=== PATIENT | female | born 1940 | race Caucasian/White ===

== ENCOUNTER 2016-11-18 08:28 | Outpatient (CLI) | payer OTHER ==
[2016-11-18] MEDS ORDERED: FUROSEMIDE 20 MG/2 ML VIAL IVP ONE (09:15)
== END 2016-11-18 14:25 | disposition home or self-care (01) ==
LOC: FOBOP 08:28
PROVIDERS: ATTEND Internal Medicine Hematology & Oncology
PROC: 30233N1 Transfusion of Nonautologous Red Blood Cells into Peripheral Vein, Percutaneous Approach (ICD-10-PCS; principal; 2016-11-18)
DX: D53.9 Nutritional anemia, unspecified (principal)
CPT/HCPCS: 36430; J1940; P9040

== ENCOUNTER → 2016-12-02 | Day surgery (SDC) | payer OTHER | END | disposition home or self-care (01) | LOC: FOBOP 07:55 | PROVIDERS: ATTEND Internal Medicine Hematology & Oncology | PROC: 30233N1 Transfusion of Nonautologous Red Blood Cells into Peripheral Vein, Percutaneous Approach (ICD-10-PCS; principal; 2016-12-02) | DX: C93.10 Chronic myelomonocytic leukemia not having achieved remission (principal); Z87.891 Personal history of nicotine dependence; Z88.0 Allergy status to penicillin; Z88.2 Allergy status to sulfonamides | CPT/HCPCS: 36430; P9016; P9040 ==

== ENCOUNTER 2016-12-21 06:37 | Day surgery (SDC) | payer OTHER ==
--- NOTE | 2016-12-19 17:42 | GHP ---
[f rep st] PREOP HISTORY AND PHYSICAL PREOPERATIVE DIAGNOSIS: Chronic myelomonocytic leukemia. HISTORY OF PRESENT ILLNESS: The patient is a 76-year-old woman who was referred to our office for p ort placement. She was diagnosed with chronic myelomonocytic leukemia in October 2016. Her oncologist is Dr. Shai Navarro. She is scheduled to start chemotherapy on December 25, 2016. PAST MEDICAL HISTORY: CHF, back pain, shortness of breath, edema, gout, hyperlipidemia, hypertensio n, CMML. PAST SURGICAL HISTORY: Cholecystectomy, hysterectomy, oophorectomy. ALLERGIES: Penicillins, sulfa. FAMILY MEDICAL HISTORY: Hypertension. 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 She is a former tobacco user. She denies alcohol or recre ational drug use. Her daughter Sayda is very involved in her care. REVIEW OF SYSTEMS: A 10-point review of systems is negative, aside from HPI. PHYSICAL EXAMINATION: GENERAL: Pleasant, well-developed, well-nourished woman, in no acute distres s, accompanied by daughter Sayda. HEENT: Normocephalic, atraumatic. No hearing deficits. Pupils equal and round. No scleral icterus. Mucous membranes moist. NECK: Trachea midline. RESPIRATORY: No increased work of breathing. Clear to auscultation bilaterally. CARDIOVASCULAR: Regular rate and rhythm. MUSCULOSKELETAL: Normal gait. Normal nails. SKIN: Warm and dry. PSYCH: Mood and affect normal. NEURO: Grossly intact. IMPRESSION AND PLAN: A 76-year-old with chronic myelomonocytic leukemia. Will attempt port placed on the left side. This will likely be an IJ port. We discussed the benefit of port placement inclu ding easier access for chemotherapy. We discussed risks including, but not limited to, stroke, hear t attack, blood clots, or . We discussed risk of infection, bleeding, and pneumothorax. She u nderstands that if the port becomes infected it will need to be removed. She can proceed with chemo on the . She and her daughter had their questions answered to their satisfaction and would lik e to proceed. Additionally seen by Dr. Hawa García. /[id number]/MODL
[2016-12-21] MEDS ORDERED: LR 1,000 ML IV ONE (07:16)
[2016-12-21] MEDS ORDERED: BUPIVACAINE 0.5% 30 ML SDV ONE (07:45)
--- NOTE | 2016-12-21 07:51 | PDHPUP ---
History & Physical Update H&P update statement: This history and physical update is based on an assessment of the patient which was completed after admission or registration (within 24 hours), but prior to the surgery/procedure. H&P update: H&P reviewed & patient examined, no change in patient's condition since H&P completed
--- NOTE | 2016-12-21 07:57 | PDANEPAE ---
ANE History of Present Illness h/o CML for port placement ANE Past Medical History - Cardiovascular History Hx Hypertension: Yes Hx Arrhythmias: No Hx Chest Pain: No Hx Coronary Artery / Peripheral Vascular Disease: No Hx CHF / Valvular Disease: Yes Hx Palpitations: No Cardiovascular History Comment: Chronic non-ischemic systolic CHF w/ LVEF 28%. Anemia w/CML. chronic LBBB. on atorvastatin. - Pulmonary History Hx COPD: No Hx Asthma/Reactive Airway Disease: No Hx Recent Upper Respiratory Infection: No Hx Oxygen in Use at Home: No O2 in Use at Home (L/minute): NONE Hx Sleep Apnea: No Sleep Apnea Screening Result - Last Documented: Negative Pulmonary History Comment: pneumonia 09-26- hosp at [facility]. - Neurologic History Hx Cerebrovascular Accident: No Hx Seizures: No Hx Dementia: No Neurologic History Comment: Hosp at [facility] for "non-infectious" meningitis 09-26. - Endocrine History Hx Diabetes: No - Renal History Hx Renal Disorders: Yes Renal History Comment: Hx of UTI's - hx of renal insufficiency 2014 - Creat 1.2. - Liver History Hx Hepatic Disorders: No - Neurological & Psychiatric Hx Hx Neurological and Psychiatric Disorders: Yes Neurological / Psychiatric History Comment: Chronic back pain. peripheral neuropathy-fingers, ft. - Cancer History Hx Cancer: Yes Cancer History Comment: chronic myelomonocytic leukemia - Congenital Disorder History Hx Congenital Disorders: No - GI History Hx Gastrointestinal Disorders: No - Other Health History Other Health History: on gout Rx. - Chronic Pain History Chronic Pain: Yes (back) - Surgical History Prior Surgeries: cholecystectomy 2016. hysterectomy. oophorectomy ANE Review of Systems - Exercise capacity METS (RN): 3 METS ANE Patient History - Allergies Allergies/Adverse Reactions: Penicillins Allergy (Verified 12/20/16 16:41) Other-Enter Comments Sulfa (Sulfonamide Antibiotics) Allergy (Verified 12/20/16 16:41) Rash - Home Medications Home medications: home medication list seen and reviewed Home Medications: Aspirin 1 tab PO DAILY 08/11/15 [Last Taken 12/19/16 12:00] Carvedilol 25 mg PO BID 08/11/15 [Last Taken 12/20/16 20:00] Allopurinol [Allopurinol 100 MG (*)] 4 mg PO DAILY 12/02/16 [Last Taken 08:00] Amitriptyline HCl 50 mg PO DAILY 12/02/16 [Last Taken 12/20/16 20:00] Atorvastatin Calcium 20 mg PO DAILY 12/02/16 [Last Taken 12/20/16 20:00] Colchicine [Colcrys] 0.6 mg PO DAILY 12/02/16 [Last Taken 12/20/16 08:00] Estradiol [Estrace] 1 mg PO DAILY 12/02/16 [Last Taken 12/18/16] Fish Oil/Dha/Epa [Fish Oil 1,200 mg Fish Oil] 1 each PO DAILY 12/02/16 [Last Taken 12/20/16 09:00] Furosemide [Lasix 40 MG (*)] 40 mg PO DAILY 12/02/16 [Last Taken 12/20/16 08:00] Meloxicam 15 mg PO DAILY 12/02/16 [Last Taken 12/20/16 08:00] Sacubitril/Valsartan 24/26Mg [Entresto 24 mg/26 mg] 1 ea PO DAILY 12/02/16 [ Last Taken 12/20/16 20:00] Vitamin B Complex [B Complex] 1 each PO DAILY 12/02/16 [Last Taken 12/20/16 07: 00] Vitamin D3 Complete Caplet 1 tab PO DAILY 12/02/16 [Last Taken 12/20/16 20:00] predniSONE 5 mg PO AD 12/02/16 [Last Taken 12/20/16 12:00] - NPO status NPO Since - Liquids (Date): 12/20/16 NPO Since - Liquids (Time): 23:00 NPO Since - Solids (Date): 12/20/16 NPO Since - Solids (Time): 19:00 - Anes Hx Anes Hx: no prior problems - Smoking Hx Smoking Status: Former smoker ANE Labs/Vital Signs - Vital Signs Blood Pressure: 132/97 Heart Rate: 111 Respiratory Rate: 18 O2 Sat (%): 99 Height: 158.75 cm Weight: 77.111 kg ANE Physical Exam - Airway Neck exam: FROM Mallampati Score: Class 1 Mouth exam: dentures - Pulmonary Pulmonary: no respiratory distress - Cardiovascular Cardiovascular: regular rate and rhythym - ASA Status ASA Status: IV ANE Anesthesia Plan Anesthesia Plan: GA w LMA
[2016-12-21] MEDS ORDERED: MIDAZOLAM 2 MG/2 ML VIAL IVP ONE (07:58)
[2016-12-21] MEDS ORDERED: PROPOFOL 200 MG/20 ML VIAL ONE (08:04)
[2016-12-21] MEDS ORDERED: fentaNYL 100 MCG/2 ML INJ ONE (08:04)
[2016-12-21] MEDS ORDERED: ONDANSETRON 4 MG/2 ML VIAL ONE ×2 (08:05→09:19)
[2016-12-21] MEDS ORDERED: LIDOCAINE 2% 100 MG/5 ML SYR ONE (08:05)
[2016-12-21] MEDS ORDERED: DEXAMETHASONE 4 MG/ML VIAL ONE (08:05)
--- NOTE | 2016-12-21 08:41 | POSTOPPROG ---
Post Op Note Date of Operation: 12/21/16 Surgeon: Hawa García Anesthesiologist: [email or web address] Anesthesia: GET(General Endotracheal) Pre-op Diagnosis: leukemia Post-op Diagnosis: same Indication: 76 yo with leukemia Procedure: r us guided IJ port Inf/Abcess present in the surg proc area at time of surgery?: No Depth: Superfical (Skin SQ)
[2016-12-21] MEDS ORDERED: PHENYLEPHRINE 10 MG/ML SDV ONE (08:47)
[2016-12-21] MEDS ORDERED: ONDANSETRON 4 MG/2 ML VIAL IVP PRN (09:16)
[2016-12-21] MEDS ORDERED: fentaNYL 100 MCG/2 ML INJ IVP PRN (09:16)
[2016-12-21] MEDS ORDERED: ACETAMINOPHEN 500 MG TAB PO PRN (09:16)
[2016-12-21] MEDS ORDERED: OXYCODONE/APAP 5/325 TAB PO PRN (09:16)
[2016-12-21] MEDS ORDERED: NALOXONE HCL 0.4 MG/ML INJ IVP PRN (09:16)
--- NOTE | 2016-12-21 09:16 | POSTANESTH ---
Post Anesthetic Evaluation Cardiovascular Status: Normal, Stable Respiratory Status: Normal, Stable Level of Consciousness/Mental Status: Can Participate in Eval Pain Control: Adequate, Prn Tx Ordered Nausea/Vomiting Control: Adequate, Prn Tx Ordered Complications Possibly Related to Anesthesia: None Noted
[2016-12-21 09:51] VITALS: RESP 18
[2016-12-21 11:29] VITALS: BP 107/87; PULSE 98; TEMP 97.9; O2SAT 96
== END 2016-12-21 10:56 | disposition home or self-care (01) ==
LOC: FSGY 06:37
PROVIDERS: ATTEND Surgery
PROC: 02HV33Z Insertion of Infusion Device into Superior Vena Cava, Percutaneous Approach (ICD-10-PCS; principal; 2016-12-21 08:30)
PROC: 0JH60XZ Insertion of Tunneled Vascular Access Device into Chest Subcutaneous Tissue and Fascia, Open Approach (ICD-10-PCS; principal; 2016-12-21 08:30)
DX: C93.10 Chronic myelomonocytic leukemia not having achieved remission (principal); I10 Essential (primary) hypertension; E78.5 Hyperlipidemia, unspecified; I50.9 Heart failure, unspecified
CPT/HCPCS: C1788; J1100; J1642; J2001; J2250; J2370; J2405; J2704; J3010

== ENCOUNTER 2016-12-30 08:55 | Day surgery (SDC) | payer OTHER ==
[2016-12-30] MEDS ORDERED: ACETAMINOPHEN 325 MG TAB PO ONE (09:45)
[2016-12-30] MEDS ORDERED: diphenhydrAMINE 25 MG CAP PO ONE (09:45)
== END 2016-12-30 12:00 | disposition home or self-care (01) ==
LOC: FOBOP 08:55
PROVIDERS: ATTEND Internal Medicine Hematology & Oncology
PROC: 30233N1 Transfusion of Nonautologous Red Blood Cells into Peripheral Vein, Percutaneous Approach (ICD-10-PCS; principal; 2016-12-30)
DX: D53.9 Nutritional anemia, unspecified (principal); C93.10 Chronic myelomonocytic leukemia not having achieved remission; Z87.891 Personal history of nicotine dependence; Z78.0 Asymptomatic menopausal state; Z88.2 Allergy status to sulfonamides; Z88.0 Allergy status to penicillin
CPT/HCPCS: 36430; P9016; J1642

== ENCOUNTER 2017-01-25 11:31 | Outpatient (CLI) | payer OTHER, MEDICAID ==
[2017-01-25] MEDS ORDERED: ACETAMINOPHEN 325 MG TAB PO ONE (12:45)
== END 2017-01-25 15:36 | disposition home or self-care (01) ==
LOC: F1NOP 11:31
PROVIDERS: ATTEND Internal Medicine Hematology & Oncology
PROC: 30233N1 Transfusion of Nonautologous Red Blood Cells into Peripheral Vein, Percutaneous Approach (ICD-10-PCS; principal; 2017-01-25)
DX: C93.10 Chronic myelomonocytic leukemia not having achieved remission (principal)
CPT/HCPCS: J1200; J1642; P9016; P9040

== ENCOUNTER 2017-01-26 12:29 | Inpatient (IN) | payer OTHER, MEDICAID ==
--- NOTE | 2017-01-26 13:12 | CPEKG ---
Heart Rate: 98 RR Interval: 612 P-R Interval: 160 QRSD Interval: 138 QT Interval: 400 QTC Interval: 511 P [place]: 40 QRS [place]: -56 T Wave [place]: 87 EKG Severity - ABNORMAL ECG - EKG Impression: SINUS RHYTHM EKG Impression: NONSPECIFIC IVCD WITH LAD EKG Impression: CONSIDER ANTERIOR INFARCT Electronically Signed By: Ronnie Child 26-Jan-2017 20:35:31
[2017-01-26 13:16] LABS: ADD DIFF? YES; ADD MORPH? NO; ADD SCAN? YES; ATYPICAL LYMPHOCYTE FLAG 0 (0-99); FRAGMENT RBC FLAG 0 (0-99); HEMATOCRIT 28.3 % (38.0-47.0); HEMOGLOBIN 8.8 g/dL (12.6-16.3); LEFT SHIFT FLG 10 (0-99); LIPEMIA HEMOLYSIS FLAG 80 (0-99); MEAN CELL HEMOGLOBIN CONCENTR. 31.1 g/dL (32.4-36.7); MEAN CELL VOLUME 93.4 fL (81.5-99.8); MEAN PLATELET VOLUME 10.2 fL (8.7-11.7); PLATELET CLUMPS FLAG 0 (0-99); PLATELET COUNT 148 10^3/uL (150-400); RED BLOOD CELL COUNT 3.03 10^6/uL (4.18-5.33); RED CELL DISTRIBUTION WIDTH 17.6 % (11.5-15.2)
--- NOTE | 2017-01-26 13:24 | EDPHY ---
H & P Stated Complaint: SENT FOR ABNORMAL LABS. CA PT Time Seen by Provider: 01/26/17 12:55 - Personal History Current Tetanus/Diphtheria Vaccine: No Current Tetanus Diphtheria and Acellular Pertussis (TDAP): No - Medical/Surgical History Hx Asthma: No Hx Chronic Respiratory Disease: No Hx Diabetes: No Hx Cardiac Disease: Yes Hx Renal Disease: No Hx Cirrhosis: No Hx Alcoholism: No Hx HIV/AIDS: No Hx Splenectomy or Spleen Trauma: No Other PMH: CHF MYELOMONOCYTIC ANEMIA. Arthritis. History of gout - Social History Smoking Status: Former smoker Constitutional: Initial Vital Signs Temperature (C) 37.1 C 01/26/17 12:38 Heart Rate 101 H 01/26/17 12:38 Respiratory Rate 17 01/26/17 12:38 Blood Pressure 137/77 H 01/26/17 12:38 O2 Sat (%) 92 01/26/17 12:38 O2 Delivery Mode Room Air Allergies/Adverse Reactions: Penicillins Allergy (Verified 12/20/16 16:41) Other-Enter Comments Sulfa (Sulfonamide Antibiotics) Allergy (Verified 12/20/16 16:41) Rash Home Medications: Medication Instructions Recorded Aspirin 1 tab PO DAILY 08/11/15 Carvedilol 25 mg PO BID 08/11/15 Allopurinol [Allopurinol 100 MG 4 mg PO DAILY 12/02/16 (*)] Amitriptyline HCl 50 mg PO DAILY 12/02/16 Atorvastatin Calcium 20 mg PO DAILY 12/02/16 Colchicine [Colcrys] 0.6 mg PO DAILY 12/02/16 Estradiol [Estrace] 1 mg PO DAILY 12/02/16 Fish Oil/Dha/Epa [Fish Oil 1,200 1 each PO DAILY 12/02/16 mg Fish Oil] Furosemide [Lasix 40 MG (*)] 40 mg PO DAILY 12/02/16 Meloxicam 15 mg PO DAILY 12/02/16 Sacubitril/Valsartan 24/26Mg 1 ea PO DAILY 12/02/16 [Entresto 24 mg/26 mg (RX)] Vitamin B Complex [B Complex] 1 each PO DAILY 12/02/16 Vitamin D3 Complete Caplet 1 tab PO DAILY 12/02/16 predniSONE 5 mg PO AD 12/02/16 Acetaminophen [Tylenol 325mg (*)] 650 mg PO Q6 #0 tab 12/21/16 Medical Decision Making - Diagnostics Imaging Results: Imaging Impressions Chest X-Ray 01/26/17 13:10 Impression: 1. Cardiomegaly and pulmonary venous hypertension. No overt failure. 2. No pneumonia. ED Course/Re-evaluation: CHIEF COMPLAINT: Elevated creatinine and questionable worsening congestive heart failure HISTORY OF PRESENT ILLNESS: 76-year-old female who is currently being treated for CML. Her last round of chemotherapy was yesterday where she completed 5 days. She has 5 days every month. She has been feeling fairly weak for the last 4 days or so. She states that she has had some diarrhea but has been trying to hydrate as much as possible. Her oncologist checked laboratory studies and found that she had an elevated creatinine and elevated BNP. She was sent in here for further evaluation. Her only specific complaint is generalized weakness and lethargy but she often feels like that at the end of her chemo rounds. She denies fevers or chills. She denies any chest pain chest pressure shortness of breath. She denies any peripheral edema. REVIEW OF SYSTEMS: A 10 point review of systems was performed and is negative with the exception of the elements mentioned in the history of present illness. PHYSICAL EXAM: HR, BP, O2 Sat, RR. Temp noted General Appearance: Alert, well hydrated, appropriate, and non-toxic appearing. Head: Atraumatic without scalp tenderness or obvious injury Eyes: Pupils equal, round, reactive to light and accommodation, EOMI, no trauma , no injection. Ears: Clear bilaterally, no perforation, normal landmarks Nose: Atraumatic, no rhinorrhea, clear. Throat: There is no erythema or exudates, no lesions, normal tonsils, mucus membranes moist. Neck: Supple, 2+ carotid upstroke, nontender, no lymphadenopathy. Respiratory: No retractions, no distress, no wheezes, and no accessory muscle use. Lungs are clear to auscultation bilaterally. Cardiovascular: Regular rate and rhythm, no murmurs, rubs, or gallops. Bilateral carotid, radial, dorsalis pedis, and posterior tibial pulses intact. Good capillary refill all extremities. Gastrointestinal: Abdomen is soft, nontender, non-distended, no masses, no rebound, no guarding, no peritoneal signs. Musculoskeletal: Normal active ROM of all extremities, atraumatic. Neurological: Alert, appropriate, and interactive. The patient has normal DTRs and non-focal cranial nerves, motor, sensory, and cerebellar exam. Skin: No rashes, good turgor, no nodules on palpation. Past medical history: CML Past surgical history: Noncontributory Family history: Noncontributory Social history: Daughter is in the room, patient does not abuse tobacco drugs or alcohol, patient is retired DIAGNOSTICS/PROCEDURES/CRITICAL CARE TIME: The 12 lead EKG was interpreted by myself. See hard copy and/or "tracemaster" electronic copy for interpretation. Sinus mechanism with borderline tachycardia and nonspecific intraventricular conduction delay Study: PA and Lateral Chest X-ray Indication: elevated creatinine and BNP Results: After viewing the images myself on the PACS system. My interpretation of the images is: cardiomegaly and venous hypertension. I have discussed the above x-rays with the radiologist. DIFFERENTIAL DIAGNOSIS: Includes not limited to post renal obstruction, intrinsic renal disease, pre renal dehydration, side effect from chemotherapeutic, secondary to diarrhea and poor p.o. intake. MEDICAL DECISION MAKING: This patient is hemodynamically stable. I am repeating laboratory studies. I do not have any prior EKGs so I do not know if her interventricular conduction delay is new or old. Labs are pending chest x- ray is pending patient is saturating well with oxygen. This patient does have slightly elevated creatinine however it appears to be prerenal in nature. Unfortunately, it is slightly difficult to correct since her BNP is well over 4000 and she does have a history of congestive heart failure and sees Dr. Boris ventura. - Data Points Laboratory Results: Laboratory Results 01/26/17 13:00 01/26/17 13:00 01/26/17 01/26/17 01/26/17 13:00 13:00 13:00 WBC 3.04 10^3/uL L 10^3/uL (3.80-9.50) RBC 3.03 10^6/uL L 10^6/uL (4.18-5.33) Hgb 8.8 g/dL L g/dL (12.6-16.3) Hct 28.3 % L % (38.0-47.0) MCV 93.4 fL fL (81.5-99.8) MCH 29.0 pg pg (27.9-34.1) MCHC 31.1 g/dL L g/dL (32.4-36.7) RDW 17.6 % H % (11.5-15.2) Plt Count 148 10^3/uL L 10^3/uL (150-400) MPV 10.2 fL fL (8.7-11.7) Neut % (Auto) Not Reported Lymph % (Auto) Not Reported [place] % (Auto) Not Reported Eos % (Auto) Not Reported Baso % (Auto) Not Reported Nucleat RBC Rel Count 0.0 % % (0.0-0.2) Absolute Neuts (auto) Not Reported Absolute Lymphs (auto) Not Reported Absolute Monos (auto) Not Reported Absolute Eos (auto) Not Reported Absolute Basos (auto) Not Reported Absolute Nucleated RBC 0.00 10^3/uL 10^3/uL (0-0.01) Immature Gran % Not Reported Immature Gran # Not Reported Platelet Estimate Pending PT 14.0 SEC SEC (12.0-15.0) INR 1.09 (0.83-1.16) APTT 37.8 SEC SEC (23.0-38.0) Sodium 137 mEq/L mEq/L (134-144) Potassium 5.6 mEq/L H mEq/L (3.5-5.2) Chloride 104 mEq/L mEq/L (97-110) Carbon Dioxide 22 mEq/l mEq/l (22-31) Anion Gap 11 mEq/L mEq/L (8-16) BUN 40 mg/dL H mg/dL (7-23) Creatinine 1.3 mg/dL H mg/dL (0.6-1.0) Estimated GFR 40 Glucose 88 mg/dL mg/dL (70-100) Calcium 8.3 mg/dL L mg/dL (8.5-10.4) Magnesium 1.8 mg/dL mg/dL (1.6-2.3) Total Bilirubin 0.5 mg/dL mg/dL (0.1-1.4) Conjugated Bilirubin 0.4 mg/dL mg/dL (0.0-0.5) Unconjugated Bilirubin 0.1 mg/dL mg/dL (0.0-1.1) AST 18 IU/L IU/L (14-46) ALT 31 IU/L IU/L (9-52) Alkaline Phosphatase 100 IU/L IU/L (38-126) Troponin I < 0.012 ng/mL ng/mL (0.000-0.034) NT-Pro-B Natriuret Pep 4590 pg/mL H pg/mL (0-450) Total Protein 5.7 g/dL L g/dL (6.3-8.2) Albumin 3.4 g/dL L g/dL (3.5-5.0) Lipase 352 IU/L H IU/L (23-300) Departure - Departure Disposition: [facility] Inpatient Acute Clinical Impression: Elevated serum creatinine, Dehydration, Elevated brain natriuretic peptide (BNP ) level, Weakness CHF (congestive heart failure) Qualifiers: Congestive heart failure type: diastolic Congestive heart failure chronicity: acute on chronic Qualified Code(s): I50.33 - Acute on chronic diastolic ( congestive) heart failure Referrals: Jeremie Arriaza MD [Primary Care Provider] - As per Instructions
[2017-01-26 13:33] LABS: INR 1.09 (0.83-1.16)
[2017-01-26 13:34] LABS: ALANINE AMINOTRANSFERASE 31 IU/L (9-52); ALBUMIN 3.4 g/dL (3.5-5.0); ALKALINE PHOSPHATASE 100 IU/L (38-126); ANION GAP 11 mEq/L (8-16); APTT 37.8 SEC (23.0-38.0); ASPARTATE AMINOTRANSFERASE 18 IU/L (14-46); BILIRUBIN,TOTAL 0.5 mg/dL (0.1-1.4); BILIRUBIN-CONJUGATED 0.4 mg/dL (0.0-0.5); BILIRUBIN-UNCONJUGATED 0.1 mg/dL (0.0-1.1); CALCIUM 8.3 mg/dL (8.5-10.4); CARBON DIOXIDE 22 mEq/l (22-31); CHLORIDE 104 mEq/L (97-110); CREATININE 1.3 mg/dL (0.6-1.0); GLOMERULAR FILTRATION RATE 40; GLUCOSE 88 mg/dL (70-100); MAGNESIUM 1.8 mg/dL (1.6-2.3); POTASSIUM 5.6 mEq/L (3.5-5.2); SODIUM 137 mEq/L (134-144); TOTAL PROTEIN 5.7 g/dL (6.3-8.2)
[2017-01-26 13:46] LABS: TROPONIN I < 0.012 ng/mL (0.000-0.034)
[2017-01-26 14:42] LABS: PLATELET ESTIMATE ADEQUATE (ADEQ)
[2017-01-26 15:46] LABS: COLOR YELLOW; LEUKOCYTE ESTERASE,URINE NEGATIVE (NEGATIVE); NITRITE,URINE NEGATIVE (NEGATIVE)
[2017-01-26 15:55] LABS: AMORPHOUS PRESENT /hpf (NONE-1+); RBC,URINE 25-50 /hpf (0-3); YEAST PRESENT /hpf (NONE SEEN)
--- NOTE | 2017-01-26 16:16 | GCON ---
[f rep st] CONSULTATION CARDIAC CONSULTATION DATE OF CONSULTATION: 01/26/2017 CHIEF COMPLAINT: Fatigue. HISTORY OF PRESENT ILLNESS: This is a 76-year-old female, who is known to [facility] as she is fo llowed by Dr. Larsen. He last saw her in November of this year. She has known nonischemic cardiomyopathy , EF 28%, hypertension, chronic left bundle branch block, with anemia and CML. She has been deemed n ot a transplant candidate by her report. She has had 1 round of chemo. She is beginning a 2nd round of chemo. Apparently she presented today with fatigue. Labs show a potassium 5.6, a creatinine of 1.3, a troponin which was normal. BNP of 4590. In review ing her labs, her creatinine always runs in the 1.0 to 1.3 range. BUNs conversely on the 38-40 range as well. Her potassiums are in the 4.9 to 5.6 range as well. She denies any PND, orthopnea, pedal ed [place]. Today she just was more fatigued. She has been on chronic stable medicine by Dr. Suzie ponce ng carvedilol 25 mg p.o. twice daily, Entresto 24/26 mg daily, and Lasix 20 mg every other day. She apparently had been on oxygen in the past but did not like taking it and did not think she needed it, according to her family member in attendance here. She denies palpitations, chest pain, or other iss ues. Her hemoglobin is likewise chronically anemic in the 7, 8-9 range. I had a long talk with her at this point. She will be admitted overnight. She does not describe any acute issues other than this is fatigued, but she is 5 days after just beginning a 2nd round of chemo. They were somewhat concern ed that her blood pressure at one time went to 94 mmHg; it usually is in the 110 range. Right now he r blood pressure is 130/77. She denies any fever, chills, nausea, or vomiting. She may have had some diarrhea after the chemo. PAST MEDICAL HISTORY: Cardiomyopathy as above. Gout, hyperlipidemia, hypertension, leukemia and chr onic renal insufficiency. Her baseline creatinine is 1.3 by note. MEDICATIONS: See reconciliation form. ALLERGIES: Penicillin and sulfa. FAMILY HISTORY: Noncontributory. REVIEW OF SYSTEMS: Positive fatigue and some diarrhea, otherwise no neurologic or other issues. She does have some occasional joint pain. No skin eruptions at this time. No fever, chills, nausea, vo miting. PHYSICAL EXAMINATION: VITAL SIGNS: Blood pressure is 130/70, heart rate is in the 90s and sinus. GE NERAL: She is a middle-aged female who is alert and oriented. Her oxygenation after going to the throom and sitting with me for 10-15 minutes had a pO2 sat of 85% which rapidly became over 90 on oxy gen. Well developed, somewhat pale. HEENT: Mouth: Oropharynx is moist. LUNGS: Essentially clear with some bibasilar crackles. CARDIOVASCULAR: Regular rate and rhythm. I could not hear gallop. N o JVP. ABDOMEN: Soft. Normoactive bowel sounds. Nontender. MUSCULOSKELETAL: No cyanosis, clubbin g, or edema. LABORATORY DATA: Today's white count is 3, hemoglobin of 8. Potassium 5.6, BUN of 40, creatinine 1.3 , albumin 3.4. ASSESSMENT: 1. Fatigue, probably multifactorial. At this point, she is not having any "acute issues." There is no paroxysmal nocturnal dyspnea, orthopnea, pedal edema or excessive weight gain. She denies palpit ations or syncope. For now, we will recommend decreasing carvedilol to 12.5 mg p.o. twice daily. I would give her a dose of 20 mg of Lasix today. I would continue her on 2 L of oxygen. We have docume nted that she was at 85% and, upon discharge, I would highly recommend home oxygen to use. She has a cancer followup on Sunday. She apparently has been in phone contact with [facility] as well. 2. Congestive heart failure, chronic systolic heart failure on o, followed in our clinic. Tino villegas has decreased left ventricular systolic function. She also has some significant anemia and an albu min of 3.4, which all is prior contributing, but she is denying any paroxysmal nocturnal dyspnea, ort hopnea or significant weight gain. I would give her Lasix, an extra dose today, and then can follow as an outpatient. I talked to her family on the phone. All the questions apparently were answered. I think it is reasonable to admit her at least overnight for observation and to further assess her o xygen needs and other issues if they were to arise. Further care depending on the hospitalist team. /[id number]/MODL
[2017-01-26] MEDS: predniSONE 5 MG TAB PO SCH (17:07)
[2017-01-26] MEDS ORDERED: PROMETHAZINE HCL 25 MG/ML INJ IVP PRN (17:09)
[2017-01-26] MEDS ORDERED: ONDANSETRON 4 MG/2 ML VIAL IVP PRN (17:09)
[2017-01-26] MEDS ORDERED: ONDANSETRON DISINTEGRATING 4 MG TAB PO PRN (17:09)
[2017-01-26] MEDS ORDERED: oxyCODONE IR 5 MG TAB PO PRN (17:09)
[2017-01-26] MEDS ORDERED: ACETAMINOPHEN 325 MG TAB PO PRN (17:09)
[2017-01-26] MEDS: CHOLECALCIFEROL VIT D3 1,000 UNITS TAB PO SCH (18:38)
[2017-01-26] MEDS: CARVEDILOL 6.25 MG TAB PO SCH (18:39)
--- NOTE | 2017-01-26 18:56 | GCON ---
[f rep st] CONSULTATION HEMATOLOGY INITIAL VISIT PRIMARY ONCOLOGIST: Shai Navarro MD REASON FOR VISIT: E&M for chronic myelomonocytic leukemia. HISTORY OF PRESENT ILLNESS: The patient is a 76-year-old woman I saw in the hospital room this evening with her daughter. She is seen by Dr. Navarro for CMML which was diagnosed in November of this year. She was started on decitabine December 25 and she has tolerated it reasonably well. They have noticed that she is going longer without transfusion and needing fewer units. She has not had any trouble with infections. This week she started her 2nd cycle and was in the office today receiving her 5th day when she was found to be somewhat slumped in her chair and her oxygen saturation was only 82% and then they tried to walk her and it dropped down to 77%. She has a significant cardiomyopathy history and she was sent to the ER for evaluation. She has been placed on oxygen and so far is feeling well. Her daughter reports that at home she averages somewhere between 80% and 90% and in the office seems like she is often right around 90%. She does not use oxygen at home. She does not sleep well and often has problems with restless leg. She had been on prednisone since May for a gout flare with a slow taper. The patient reports that since her prednisone dose was stopped, she has had joint pain all over and the restless leg has worsened. Also, her peripheral neuropathy was more tolerable when on the prednisone. Also since dropping the dose, her appetite has not been as good. She was transfused 1 unit of blood yesterday and she tolerated it well without any difficulty. PAST MEDICAL HISTORY: ALLERGIES: Penicillins and sulfa. HOME MEDICATIONS: A multivitamin, famotidine, allopurinol, carvedilol, atorvastatin, aspirin, amitriptyline, omega-3 fatty acid, colchicine, Entresto, meloxicam, furosemide, B complex, and cholecalciferol. CHRONIC ILLNESSES: Congestive heart failure with nonischemic cardiomyopathy, EF 28%. Hypertension, chronic left bundle branch block, gout, idiopathic peripheral neuropathy, recurrent urinary tract infections, previous history of aseptic meningitis. She has some mild chronic renal insufficiency. SURGICAL HISTORY: Cholecystitis. SOCIAL HISTORY: She quit smoking in 2003. She uses alcohol rarely. FAMILY HISTORY: Noncontributory. REVIEW OF SYSTEMS: 10-point review of systems performed. Pertinent positives as in HPI, otherwise negative. PHYSICAL EXAM: CURRENT VITALS: Temperature is 36.5. On room air, she is saturating 83%. She is at 97% on 2 L. Pulse is 112, blood pressure is 136/81. GENERAL: She is an elderly woman in no distress. HEENT: Unremarkable. LUNGS: Some slight crackles. CARDIAC: Regular without murmur. She does have 1+ edema lower extremities. ABDOMEN: Soft, nontender. NODES: No peripheral lymphadenopathy. NEUROLOGICAL: Decreased sensation with pain down her lower extremities, but otherwise nonfocal. LABS: Today, white count 2900, ANC is 900, hemoglobin is 8.5 g/dL up from 7.7, platelet count 132,000. BUN and creatinine were up a little bit 41 and 1.3. Her creatinine ranges between 1 and 1.4. Albumin is 3.4. BNP was elevated at 4400, it was 400 in November. IMPRESSION: 1. Chronic myelomonocytic leukemia, currently on decitabine with decreased transfusion needs. 2. Congestive heart failure. 3. Chronic hypoxia. 4. History of gout. 5. Idiopathic peripheral neuropathy. I wonder if she might be having elements of sleep apnea since Dr. Cintron is not convinced that she is having an acute cardiac event. I have talked to the nurse and they are going to test her overnight. She definitely responds very rapidly and well to low-dose oxygen and I explained to her that she may just need to use it more often, particularly when she is sleeping. In addition, I can add back a low-dose prednisone at 5 mg and see if that helps some of her joint pain, her peripheral neuropathy discomfort, and her restless leg symptoms. I will give her 5 mg tonight and then start 5 mg once daily. She thought at 10 mg her joints felt the best. At this point, her blood counts are low, but not unexpected for her current situation. There is no indication for transfusion right now, and if she is clinically stable tomorrow, there would be no hematological contraindication for to go home. /[id number]/MODL MTDD
[2017-01-26] MEDS: AMITRIPTYLINE HCL 25 MG TAB PO SCH (21:29)
[2017-01-26] MEDS: ATORVASTATIN CALCIUM 20 MG TAB PO SCH (21:29)
[2017-01-26] MEDS: SACUBITRIL/VALSARTAN 24/26MG 1 EA TAB PO SCH (21:29)
[2017-01-26] MEDS: FAMOTIDINE 20 MG TAB PO SCH (21:29)
--- NOTE | 2017-01-26 23:27 | GHP ---
[f rep st] HISTORY AND PHYSICAL DATE OF ADMISSION: 01/26/2017 CHIEF COMPLAINT: Fatigue. HISTORY: This is a 76-year-old female, past medical history of CML, currently undergoing chemotherap y, most recently this morning with decitabine. Up until today, it sounds as if she has been tolerati ng her chemotherapy fairly well. Today, it was noted, while at the infusion center, that she was slu mped in her chair, appeared very weak, unable to walk. Her O2 saturations dropped as low as 77%. At the time that I am evaluating her in the hospital, she states she feels somewhat better. She states overall what she felt earlier was just profound weakness unlike anything she has ever experienced be fore. She has had some complications related to gout and restless leg ever since being discontinued on prednisone. She also underwent a blood transfusion yesterday that was uncomplicated. She has had no fevers or chills. She has had no chest pain. She has not had any swelling in her legs that she has appreciated. PAST MEDICAL HISTORY: 1. CML, again on her second round of chemotherapy with decitabine. 2. Tophaceous gout. 3. Nonischemic cardiomyopathy with a baseline ejection fraction of 30%. 4. Hypertension. 5. Hyperlipidemia. 6. Chronic kidney disease with a baseline creatinine of 1.3. 7. Chronic anemia. PAST SURGICAL HISTORY: 1. Cholecystectomy. 2. Hysterectomy. 3. Oophorectomy. FAMILY HISTORY: Hypertension. 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 She previously smoked but quit in 2003. She drinks r moon. REVIEW OF SYSTEMS: 10-point review of systems obtained and negative, except as per HPI. HOME MEDICATIONS: 1. Multivitamin. 2. Famotidine. 3. Allopurinol. 4. Carvedilol. 5. Atorvastatin. 6. Aspirin. 7. Amitriptyline. 8. Continental-3 fatty acids. 9. Colchicine. 10. Entresto. 11. Meloxicam. 12. Lasix. 13. Vitamin B. 14. Vitamin D. ALLERGIES: Penicillin, sulfa. PHYSICAL EXAMINATION: VITAL SIGNS: BP 116/71, heart rate 101, respiratory rate 16, O2 sats 95% on 2 L. Again, she was 83% on room air. Temperature is 36.5. GENERAL APPEARANCE: Chronically ill-appe aring elderly female. She is awake and alert. She is in no acute distress. EYES: Anicteric. HENT : Oropharynx clear. CARDIOVASCULAR: RRR, mildly tachy. PULMONARY: Decreased breath sounds at the bases. Normal work of breathing. ABDOMEN: Soft, nontender, nondistended. EXTREMITIES: No clubbi ng, cyanosis, or edema. SKIN: Warm, dry, well perfused. NEURO/PSYCH: Oriented and appropriate, pl easant. CLINICAL DATA: Labs reviewed, significant for white blood cell count of 3, hematocrit of 28.3, plate lets of 148. Coags are normal. Chemistries notable for potassium 5.6, creatinine 1.3. Troponin neg ative. UA shows 25-50 red blood cells. Chest x-ray, personally reviewed and interpreted, shows card iomegaly without failure. EKG, personally reviewed and interpreted, shows sinus rhythm, nonspecific interventricular conduction delay. ASSESSMENT/PLAN: This is a 76-year-old female with past medical history of CML, congestive heart elliot lure, presenting with fatigue and ebtuk-nj-flstocz hypoxic respiratory failure. 1. Fatigue. This seems to be likely multifactorial with the patient undergoing chemotherapy, having recently been stopped on prednisone, as well as being notably more hypoxic than her usual baseline. This has already improved. I suspect that this is not due to some major underlying issue but rather due to, again, multiple issues as per above. 2. Ofvex-md-agsrkaf hypoxic respiratory failure. It sounds as if the patient has been ranging in 80 % to 90% on room air for some time. Today, she is noted to be 83% on room air and even as low as in the 70s. This is likely due to her underlying congestive heart failure, as well as contributions of atelectasis and limited mobility. She is doing very well now on low-flow O2 and will need to be disc harged home on the same. 3. CML. Oncology is following. I appreciate their consult. She is being treated with decitabine a nd has been doing fairly well. 4. Chronic systolic heart failure with ejection fraction of 28%. She has been seen by Cardiology, w ho did not feel that this represents an acute decompensation of her CHF. She will be continued on he r usual home medications, including beta desean, Entresto, and Lasix. 5. Chronic kidney disease. This is at baseline. Will continue to have caution with renally dosing medications and avoiding nephrotoxins. 6. Gout. Again, the patient has been having issues with increased symptoms since being weaned off h er prednisone. This is being resumed. This also may be impacting her fatigue. 7. Disposition: Observation status. I suspect she will need less than 48-hour stay for evaluation and management of above. 8. The patient is new to my care. Old records reviewed, summarized as per HPI and Past Medical Hist ory. Care plan reviewed with Cardiology, including plans for supplemental O2. Further history is ob tained from the patient's daughter, present at bedside. /[id number]/MODL
[2017-01-27 02:57] LABS: % IMMATURE GRANULYOCYTES 0.9 % (0.0-1.1); ABSOLUTE IMMATURE GRANULOCYTES 0.02 10^3/uL (0.00-0.10); ADD DIFF? NO; ADD MORPH? NO; ADD SCAN? NO; ATYPICAL LYMPHOCYTE FLAG 0 (0-99); FRAGMENT RBC FLAG 0 (0-99); HEMOGLOBIN 8.5 g/dL (12.6-16.3); LEFT SHIFT FLG 0 (0-99); LIPEMIA HEMOLYSIS FLAG 80 (0-99); MEAN CELL HEMOGLOBIN 28.5 pg (27.9-34.1); MEAN CELL HEMOGLOBIN CONCENTR. 30.4 g/dL (32.4-36.7); MEAN PLATELET VOLUME 10.1 fL (8.7-11.7); PLATELET CLUMPS FLAG 0 (0-99); PLATELET COUNT 116 10^3/uL (150-400); RED BLOOD CELL COUNT 2.98 10^6/uL (4.18-5.33); RED CELL DISTRIBUTION WIDTH 17.7 % (11.5-15.2)
[2017-01-27 03:19] LABS: ANION GAP 9 mEq/L (8-16); CALCIUM 8.5 mg/dL (8.5-10.4); CARBON DIOXIDE 24 mEq/l (22-31); CHLORIDE 107 mEq/L (97-110); GLOMERULAR FILTRATION RATE 54; GLUCOSE 108 mg/dL (70-100); POTASSIUM 5.6 mEq/L (3.5-5.2); SODIUM 140 mEq/L (134-144)
[2017-01-27] MEDS ORDERED: FUROSEMIDE 20 MG TAB PO SCH (09:00)
[2017-01-27] MEDS: ALLOPURINOL 100 MG TAB PO SCH (09:43)
[2017-01-27] MEDS ORDERED: SODIUM POLY SULF 15 GM/60 ML BOTTLE PO ONE (09:43)
[2017-01-27] MEDS: FAMOTIDINE 20 MG TAB PO SCH ×2 (09:43→21:03)
[2017-01-27] MEDS: CARVEDILOL 6.25 MG TAB PO SCH ×2 (09:43→19:01)
[2017-01-27] MEDS: COLCHICINE 0.6 MG CAP/TAB PO SCH (09:43)
[2017-01-27] MEDS: ALLOPURINOL 300 MG TAB PO SCH (09:43)
[2017-01-27] MEDS: predniSONE 5 MG TAB PO SCH (09:44)
[2017-01-27] MEDS: OMEGA-3 FATTY ACIDS 1,000 MG CAP PO SCH (09:44)
[2017-01-27] MEDS: VITAMIN B COMPLEX 1 EA CAP/TAB PO SCH (09:44)
[2017-01-27] MEDS: Meloxicam [Mobic] 15 MG PO SCH (09:46)
[2017-01-27] MEDS ORDERED: predniSONE 10 MG TAB PO ONE (09:46)
[2017-01-27] MEDS: SACUBITRIL/VALSARTAN 24/26MG 1 EA TAB PO SCH (11:07)
--- NOTE | 2017-01-27 11:35 | SOAPPROG ---
SOAP Progress Note Assessment/Plan: Assessment/Plan: 76 yo woman w CMML currently on Decitabine (C2 complete 01/26) who p/w fatigue and hypoxia 1. Fatigue/hypoxia - improved w O2 nocturnal pulse ox showing 10% of time, pt fell below 88% felt not to be ACS per cadrs - appreciate med management 2. CMML - decreasing transfusion needs counts ok today from my perspective, ok to d/c once other medical issues stable 3. Chronic hypoxia 4. Peripheral neuropathy 01/27/17 11:32 01/27/17 11:34 Subjective: No acute events feeling better today Objective: Vital Signs Temp Pulse Resp BP Pulse Ox 36.6 C 103 H 20 109/64 94 01/27/17 09:30 01/27/17 09:30 01/27/17 09:30 01/27/17 09:30 01/27/17 09:30 Laboratory Results 01/27/17 02:35 01/27/17 02:35 01/26/17 01/27/17 01/28/17 05:59 05:59 05:59 Intake Total 470 Output Total 1300 Balance -830 PT 14.0 SEC (12.0-15.0) 01/26/17 13:00 INR 1.09 (0.83-1.16) 01/26/17 13:00 Gen - NAD CV - RRR Lungs - clear bilaterally ext - no sig edema ICD10 Worksheet Patient Problems: Problems Problem Status Onset CHF (congestive heart failure) Acute Dehydration Acute Elevated brain natriuretic peptide (BNP) level Acute Elevated serum creatinine Acute Weakness Acute
[2017-01-27] MEDS: MULTIVITAMINS 1 EACH TAB PO SCH (12:45)
[2017-01-27] MEDS: ASPIRIN 325 MG TAB PO SCH (12:45)
--- NOTE | 2017-01-27 13:14 | PDCARPN ---
Cardiology Progress Note Chief Complaint: Fatigue Assessment/Plan: Assessment: Non-ischemic CMP EF 28% On Coreg. Dyspnea alleviated with oxygen. CHF Is on Lasix, which has helped with fluid overload. Entresto held today only in effort to bring down K+ 5.6. Hospitalist trying Kalexate to bring down K. She can have additional Lasix if needed for fluid overload. HTN well managed on current medications. Anemia & CML treated with chemo, just starting 2nd round. Plan: Continue to follow along. Currently cardiac stable. 01/27/17 13:14 01/27/17 13:24 Subjective: feeling better today Reviewed/Discussed With: hospitalist Objective: Vital Signs (8 Hrs) Temp Pulse Resp BP Pulse Ox 01/27/17 12:24 36.7 C 100 20 111/65 95 01/27/17 09:30 36.6 C 103 H 20 109/64 94 Intake/Output (24 Hrs) 01/26/17 01/27/17 01/28/17 05:59 05:59 05:59 Intake Total 470 Output Total 1300 Balance -830 Intake: Oral (ml) 470 Output: Urine (ml) 1300 Toilet 1300 Other: Weight 76.5 kg Result Diagrams: 01/27/17 02:35 01/27/17 02:35 Cardiac Labs: Cardiac Lab Results (72 Hrs) 01/27/17 01/26/17 02:35 18:45 Troponin I < 0.012 < 0.012 - Physical Exam Constitutional: no apparent distress Cardiovascular: regular rate and rhythm, no murmurs, no rubs Respiratory: no crackles, no wheezes Skin: warm, no edema Neurologic: AAOx3 Psychiatric: cooperative, interactive ICD10 Worksheet Patient Problems: Problems Problem Status Onset CHF (congestive heart failure) Acute Dehydration Acute Elevated brain natriuretic peptide (BNP) level Acute Elevated serum creatinine Acute Weakness Acute
[2017-01-27 14:06] LABS: ANION GAP 13 mEq/L (8-16); CALCIUM 8.6 mg/dL (8.5-10.4); CARBON DIOXIDE 24 mEq/l (22-31); CHLORIDE 105 mEq/L (97-110); GLOMERULAR FILTRATION RATE 54; GLUCOSE 130 mg/dL (70-100); POTASSIUM 4.9 mEq/L (3.5-5.2); SODIUM 142 mEq/L (134-144)
--- NOTE | 2017-01-27 15:18 | ASMTCMCOM ---
CM Note CM Note Notes: Pt. is a 76-year-old woman admitted w/ dehydration, fatigue, weakness, CHF, and elevated creatinine. Hx. CML, CHF, chronic kidney disease, and gout. Pt. appears to live alone and has a daughter Kaleigh . CM anticipates independent d/c when ready. CM available should d/c POC change. Date Signed: 01/27/2017 03:17 PM Electronically Signed By:Marika Castillo LCSW
--- NOTE | 2017-01-27 16:26 | HOSPPROG ---
Hospitalist Progress Note Assessment/Plan: * Hypoxia - some reports that this is chronic but per dtr 95% RA 1 year ago -ddimer + --> will check CTA rule out PE * Hyperkalemia due to adrenal insufficiency -prednisone recently tapered off -prednisone resumed - no cortisol testing done -recommend very slow taper if prednisone DC in future -Kayexalate x 1 * Chronic systolic CHF - EF 28% -need to hold Entresto due to hyperkalemia * CMML - on chemo * Pancytopenia post chemo - follow * Tophaceous gout -allopurinol, colchicine, prednisone Subjective: Feels better Objective: Vital Signs Temp Pulse Resp BP Pulse Ox 36.5 C 103 H 18 123/71 H 95 01/27/17 14:54 01/27/17 14:54 01/27/17 14:54 01/27/17 14:54 01/27/17 14:54 Laboratory Results 01/27/17 02:35 01/27/17 13:45 01/26/17 01/27/17 01/28/17 05:59 05:59 05:59 Intake Total 470 1280 Output Total 1300 200 Balance -830 1080 PT 14.0 SEC (12.0-15.0) 01/26/17 13:00 INR 1.09 (0.83-1.16) 01/26/17 13:00 discussed with cardiology - gabriel montano - regarding holding entresto - Physical Exam Constitutional: no apparent distress, appears nourished, not in pain Cardiovascular: regular rate and rhythym, no murmur, rub, or gallop Respiratory: no respiratory distress, no rales or rhonchi, clear to auscultation Gastrointestinal: normoactive bowel sounds, soft, non-tender abdomen, no palpable masses Skin: no rashes or abrasions, no fluctuance, no induration Neurologic: AAOx3, sensation intact bilaterally Psychiatric: interacting appropriately, not anxious, not encephalopathic, thought process linear ICD10 Worksheet Patient Problems: Problems Problem Status Onset CHF (congestive heart failure) Acute Dehydration Acute Elevated brain natriuretic peptide (BNP) level Acute Elevated serum creatinine Acute Weakness Acute
[2017-01-27] MEDS ORDERED: IOPAMIDOL (ISOVUE 370) 100 ML BTL IV ONE (17:07)
[2017-01-27] MEDS: CHOLECALCIFEROL VIT D3 1,000 UNITS TAB PO SCH (19:01)
[2017-01-27] MEDS: ATORVASTATIN CALCIUM 20 MG TAB PO SCH (21:02)
[2017-01-27] MEDS: AMITRIPTYLINE HCL 25 MG TAB PO SCH (21:03)
[2017-01-28 06:42] LABS: ANION GAP 9 mEq/L (8-16); CALCIUM 8.3 mg/dL (8.5-10.4); CARBON DIOXIDE 27 mEq/l (22-31); CHLORIDE 102 mEq/L (97-110); CREATININE 0.8 mg/dL (0.6-1.0); GLOMERULAR FILTRATION RATE > 60; GLUCOSE 83 mg/dL (70-100); POTASSIUM 4.1 mEq/L (3.5-5.2); SODIUM 138 mEq/L (134-144)
[2017-01-28 06:57] LABS: % IMMATURE GRANULYOCYTES 1.4 % (0.0-1.1); ABSOLUTE IMMATURE GRANULOCYTES 0.04 10^3/uL (0.00-0.10); ADD DIFF? NO; ADD MORPH? NO; ADD SCAN? NO; ATYPICAL LYMPHOCYTE FLAG 0 (0-99); FRAGMENT RBC FLAG 0 (0-99); HEMATOCRIT 27.8 % (38.0-47.0); HEMOGLOBIN 8.5 g/dL (12.6-16.3); LEFT SHIFT FLG 10 (0-99); LIPEMIA HEMOLYSIS FLAG 80 (0-99); MEAN CELL HEMOGLOBIN 28.5 pg (27.9-34.1); MEAN CELL HEMOGLOBIN CONCENTR. 30.6 g/dL (32.4-36.7); MEAN CELL VOLUME 93.3 fL (81.5-99.8); MEAN PLATELET VOLUME 10.2 fL (8.7-11.7); PLATELET CLUMPS FLAG 0 (0-99); PLATELET COUNT 91 10^3/uL (150-400); RED BLOOD CELL COUNT 2.98 10^6/uL (4.18-5.33); RED CELL DISTRIBUTION WIDTH 17.5 % (11.5-15.2)
[2017-01-28] MEDS: CARVEDILOL 6.25 MG TAB PO SCH (07:37)
[2017-01-28] MEDS: VITAMIN B COMPLEX 1 EA CAP/TAB PO SCH (07:38)
[2017-01-28] MEDS: predniSONE 5 MG TAB PO SCH (07:38)
[2017-01-28] MEDS: FAMOTIDINE 20 MG TAB PO SCH (07:38)
[2017-01-28] MEDS: COLCHICINE 0.6 MG CAP/TAB PO SCH (07:38)
[2017-01-28] MEDS: ALLOPURINOL 100 MG TAB PO SCH (07:39)
[2017-01-28] MEDS: ALLOPURINOL 300 MG TAB PO SCH (07:39)
[2017-01-28] MEDS: OMEGA-3 FATTY ACIDS 1,000 MG CAP PO SCH (07:39)
[2017-01-28] MEDS: Meloxicam [Mobic] 15 MG PO SCH (07:39)
[2017-01-28 08:03] VITALS: RESP 14
[2017-01-28] MEDS ORDERED: HYDROCORTISONE 100 MG/2 ML VIAL IVP ONE (10:44)
[2017-01-28] MEDS ORDERED: FLU VACC QS 2017-18 (3YR+)/PF 0.5 ML SYR (FLUARIX QUAD) IM ONE (10:45)
--- NOTE | 2017-01-28 10:46 | PDHOMEO2F ---
Home Oxygen Face to Face Home Orders: I certify that a physician or a nurse practitioner or physician's language assistant has had a iwuk-hb-bkbd encounter with this patient on the date of this order due to the diagnosis listed, which relates to the primary reason the patient requires home oxygen. Alternative treatments have been tried, or considered, and deemed ineffective. It is anticipated that supplemental oxygen will result in improvement with treatment. Home oxygen qualifying diagnosis: Obesity hypoventilation syndrome SpO2 on room air (%): 80 Frequency of home oxygen needed: continuous Home oxygen liters per minute: 2 Home oxygen delivery device: nasal cannula Concentrator: Yes E-tanks for mobility and back up: Yes If ordering portable O2, is the patient mobile in the home?: Yes I certify that, based on these findings, the home oxygen is medically necessary for this patient for the following length of time. Length of time home oxygen needed: 3 months
--- NOTE | 2017-01-28 10:47 | PDIAF ---
- Diagnosis Diagnosis: adrenal insufficiency Code Status: Do Not Resuscitate - Medication Management Discharge Medications: Medications to Continue on Transfer Aspirin [Aspirin 325 mg (*)] 325 mg PO DAILY@12 #0 08/11/15 [Last Taken 01/25/17 ] Cholecalciferol Vit D3 [Vitamin D3 (*)] 1,000 units PO DAILY18 #0 12/02/16 [ Last Taken 01/25/17] Meloxicam 15 mg PO DAILY 12/02/16 [Last Taken 01/26/17] Sacubitril/Valsartan 24/26Mg [Entresto 24 mg/26 mg (RX)] 1 ea PO BID 12/02/16 [ Last Taken 01/26/17] Vitamin B Complex [B Complex] 1 each PO DAILY 12/02/16 [Last Taken 01/26/17] Allopurinol [Allopurinol 100 MG (*)] 100 mg PO DAILY 01/26/17 [Last Taken ] Allopurinol [Allopurinol 300 MG (RX)] 300 mg PO DAILY 01/26/17 [Last Taken 01/26] Amitriptyline HCl [Elavil 50 mg (*)] 50 mg PO HS 01/26/17 [Last Taken 01/25/17] Atorvastatin Calcium [Lipitor 20 mg (*)] 20 mg PO HS 01/26/17 [Last Taken ] Carvedilol [Coreg (*)] 12.5 mg PO BIDMEAL 01/26/17 [Last Taken 01/26/17] Colchicine [Colchicine (*)] 0.6 mg PO DAILY 01/26/17 [Last Taken 01/26/17] Famotidine [Pepcid 20 MG (*)] 20 mg PO BID 01/26/17 [Last Taken 01/26/17] Furosemide [Lasix 20 MG (*)] 20 mg PO Q2D 01/26/17 [Last Taken 01/26/17] Multivitamins [Multivitamin (*)] 1 each PO DAILY@12 01/26/17 [Last Taken ] Lakeside-3 Fatty Acids [Fish Oil 1000 mg (*)] 1,000 mg PO DAILY 01/26/17 [Last Taken 01/26/17] Discharge Medications: Refer to the Discharge Home Medication list for PRN reason. - Orders Services needed: Home Care, Registered Nurse, Physical Therapy, Occupational Therapy Home Care Face to Face: I certify that this patient was under my care and that I had the required [id number] encounter meeting the encounter requirements on the discharge day. My findings support the fact that the patient is homebound as defined in CMS Chapter 7 Medicare Benefits Manual 30.1.1, The condition of the patient is such that there exists a normal inability to leave home and consequently, leaving home would require a considerable and taxing effort. Oxygen: 2L Diet Recommendation: no restrictions on diet - Follow Up Care Current Providers and Referrals: Jeremie Arriaza MD [Primary Care Provider] - As per Instructions
[2017-01-28] MEDS ORDERED: SACUBITRIL/VALSARTAN 24/26MG 1 EA TAB PO SCH ×2 (11:00→12:00)
[2017-01-28] MEDS: MULTIVITAMINS 1 EACH TAB PO SCH (11:32)
[2017-01-28] MEDS: ASPIRIN 325 MG TAB PO SCH (11:34)
--- NOTE | 2017-01-28 12:14 | ASMTCMCOM ---
CM Note CM Note Notes: CM met w/ pt and daughter for dispo planning. Pt is being discharged today. MD is recommending HC; PT/OT/RN. CM left msg for Neeta at [facility] inquiring about referral and requesting a call back. Referral made to [facility]. Neeta at [facility] has accepted pt. CM provided MIGUEL Hdez with number to give report. CM available for changes. Date Signed: 01/28/2017 12:13 PM Electronically Signed By:PAMELA Medellin
[2017-01-28 12:40] VITALS: BP 113/68; PULSE 107; TEMP 97.7; O2SAT 94
--- NOTE | 2017-01-28 13:52 | ASDISCHSUM ---
Discharge Information Plan Status:Home with Home Health Medically Cleared to Leave:01/28/2017 Discharge Date:01/28/2017 01:24 PM CM D/C Disposition:Home Health Service ADT D/C Disposition:Home Health Service Projected Discharge Date:01/28/2017 11:00 AM Transportation at D/C: Discharge Delay Reason: Follow-Up Date:01/28/2017 11:00 AM Discharge Slot: Final Diagnosis: Placement Information Referral Type:*Home Health Care Services Referral ID:[id number] Provider Name: Address 1: Phone Number: Address 2: Fax Number: City: [facility] Factors: State: Patient Contact Information Contact Name:WALKER Relationship:Daughter Address: Work Phone: [facility]:[place] Alternate Phone: [facility] Code:[place] Email: Financial Information Financial Class:Medicare Advantage Plans Primary Plan Desc:[employer] CHO[employer] PPO MEDICARE Primary Plan Number:[id number] Secondary Plan Desc:MED[place] Secondary Plan Number:[id number] Assessment Information [facility] CM Progress Note CM Note CM Note Notes: Pt. is a 76-year-old woman admitted w/ dehydration, fatigue, weakness, CHF, and elevated creatinine. Hx. CML, CHF, chronic kidney disease, and gout. Pt. appears to live alone and has a daughter Kaleigh . anticipates independent d/c when ready. CM available should d/c POC change. Date Signed: 01/27/2017 03:17 PM Electronically Signed By:Marika Castillo LCSW [facility] CM Progress Note CM Note CM Note Notes: CM met w/ pt and daughter for dispo planning. Pt is being discharged today. is recommending HC; PT/OT/RN. CM left msg for Neeta at [facility] inquiring about referral and requesting a call back. Referral made to [facility]. Neeta at [facility] has accepted pt. CM provided MIGUEL Hdez with number to give report. CM available for changes. Date Signed: 01/28/2017 12:13 PM Electronically Signed By:PAMELA Medellin Intervention Information
--- NOTE | 2017-01-28 19:26 | GDS ---
[f rep st] DISCHARGE SUMMARY DISCHARGE DIAGNOSES: 1. Hypoxemia, suspect obesity hypoventilation syndrome. 2. Hyperkalemia due to secondary adrenal insufficiency. 3. Chronic systolic congestive heart failure, ejection fraction 28%. 4. Chronic myelomonocytic leukemia, on chemotherapy. 5. Pancytopenia, post chemotherapy. 6. Tophaceous gout. HISTORY: The patient is a 76-year-old female undergoing chemotherapy for CMML. She was at the [facility] getting her infusion when she slumped in her chair, became extremely weak. Was able to walk . Her oxygen saturations dropped to 77%. Upon arrival to the hospital, she was found to also be hyp erkalemic. HOSPITAL COURSE BY PROBLEMS: 1. Hypoxemia: This was relatively subacute, as there were some low saturations noted over the last couple weeks, but she was not on home oxygen. A D-dimer was positive, but a CT angiogram of the ches t was negative for pulmonary embolus and otherwise unremarkable. No reversible cause for her hypoxem ia was found, and she was arranged for home oxygen. She is obese and anticipate that is contributing to her hypoxemia. 24/7 home O2 was recommended and arranged. 2. Hyperkalemia, due to adrenal insufficiency. The patient had been on prednisone for months due to her gout and had been recently tapered off. She just took her last prednisone dose 1 week ago and i mmediately started to feel poorly. No cortisol testing was done, but her prednisone was just resumed . Review of her outpatient laboratory studies reveals that her hyperkalemia is new over the last wee k, and so I do suspect this is result of her adrenal insufficiency. She received a dose of Kayexalat e x1. We did hold her Entresto while in the hospital due to this hyperkalemia, but now that her pota ssium has returned to normal, I think it can be resumed. PLAN: Discharge back on prednisone with an end date for prednisone unclear. When that decision is m caleb as an outpatient to taper prednisone off again, would recommend an extraordinarily slow taper, gi marianne this episode of secondary adrenal insufficiency with this attempted discontinuation. She follows closely with Rheumatology for her tophaceous gout and is also on allopurinol and colchicine, which s hould be adequate. DISCHARGE MEDICATIONS: Please see computer record for full detailed list. NEW MEDICATION: 1. Prednisone 5 mg p.o. daily. ADDITIONAL DISCHARGE INSTRUCTIONS: 1. Home oxygen 04/12. 2. Home Health PT/OT/VNS. 3. Continue to follow twice weekly basic metabolic panels through Oncology. TIME SPENT: Greater than 30 minutes' time was spent arranging this discharge. Patient was seen and examined by me on the day of discharge. /[id number]/MODL
[2017-01-29] MEDS ORDERED: FUROSEMIDE 20 MG TAB PO SCH (09:00)
== END 2017-01-28 13:24 | disposition home health service (06) | DRG 206 ==
LOC: F2W 16:15 → OBSVTOIN 01-27 09:42
PROVIDERS: ADMIT Internal Medicine; ATTEND Internal Medicine
DX: R09.02 Hypoxemia (principal); I11.0 Hypertensive heart disease with heart failure; I50.22 Chronic systolic (congestive) heart failure; E66.2 Morbid (severe) obesity with alveolar hypoventilation; C93.10 Chronic myelomonocytic leukemia not having achieved remission; D61.818 Other pancytopenia; E87.5 Hyperkalemia; M1A.9XX1 Chronic gout, unspecified, with tophus (tophi)
CPT/HCPCS: 97116-GP; 97161-GP; 97165-GO; G0008; G0378; J1642; Q9967

== ENCOUNTER → 2017-02-03 | Outpatient (CLI) | payer OTHER, MEDICAID ==
[2017-02-03 11:03] VITALS: TEMP 98.6
[2017-02-03 13:13] VITALS: BP 110/55; PULSE 102
== END ==
LOC: FOBOP 09:28
PROVIDERS: ATTEND Internal Medicine Hematology & Oncology
PROC: 30233R1 Transfusion of Nonautologous Platelets into Peripheral Vein, Percutaneous Approach (ICD-10-PCS; principal; 2017-02-03)
DX: C93.10 Chronic myelomonocytic leukemia not having achieved remission (principal)
CPT/HCPCS: 36430; J1642; Q9988

== ENCOUNTER 2017-02-07 17:17 | Inpatient (IN) | payer OTHER, MEDICAID ==
[~2017-02-07 17:17] MED LIST: ACETAMINOPHEN 325 MG TAB PO ONE; FUROSEMIDE 20 MG/2 ML VIAL IV ONE; diphenhydrAMINE 25 MG CAP PO ONE
--- NOTE | 2017-02-07 17:40 | EDPHY ---
H & P HPI/ROS: CHIEF COMPLAINT: fever, sore throat HISTORY OF PRESENT ILLNESS: Patient is a 76-year-old female with a history of CML currently on her 2nd round of chemotherapy who presents to the emergency department with multiple complaints. She states yesterday she started to developed a sore throat. It is gradually worsening. It is worse on the left when compared to the right. She is currently using nystatin swish and swallow. She has had thrush previously. She has increased pain with swallowing. No new shortness of breath. No cough. The patient was sent to the emergency department from the infusion center. She went to receive a transfusion of packed red blood cells as well as platelets for low numbers. When she arrived to the transfusion center she was noted to have a fever. She states the fever curve prior to the transfusion and the staff at the infusion center does not feel this is a transfusion reaction. She has no new abdominal pain. No nausea or vomiting. REVIEW OF SYSTEMS: My complete review of systems is negative except as mentioned in the HPI. 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 Smoking Status: Former smoker Physical Exam: 1635: 135/74, 112, 28, 37.6 GENERAL: Mild acute distress, alert. HEENT: Nasal cannula. Eyes normal to inspection, no signs of dehydration. Moist mucous membranes. The patient's face is symmetric. There is no erythema. Patient has mild tenderness palpation over her left lateral face extending to her ear. I do not palpate a mass. Patient has multiple white patches on her posterior pharynx. There is mild diffuse erythema. There is no notable sloughing or ulceration. Uvula is midline. There is no asymmetry. NECK: No thyromegaly, no significant lymphadenopathy. The patient does have left lateral neck tenderness to palpation. No palpable mass. Supple. RESPIRATORY: Clear to auscultation bilaterally, no rales, rhonchi or wheezing. CVS: Regular rate and rhythm, no rubs, murmurs, or gallops. ABDOMEN: Soft, nontender, nondistended, no organomegaly. BACK: Normal to inspection, no CVA tenderness. SKIN: Normal color, no rash, warm, dry. No pallor. EXTREMITIES: No pedal edema, no calf tenderness. The patient has old bruising over her left knee with surrounding erythema. There is slight streaking up her left medial thigh. Is mildly tender to touch. NEURO/PSYCH: Alert and oriented, normal mood and affect, normal motor sensory exam. No obvious cranial nerve deficit. Constitutional: Initial Vital Signs Temperature (C) 38.2 C 02/07/17 10:20 Heart Rate 117 H 02/07/17 10:20 Respiratory Rate 18 02/07/17 10:20 Blood Pressure 115/61 02/07/17 10:20 O2 Delivery Mode Nasal Cannula O2 (L/minute) 2 Allergies/Adverse Reactions: Penicillins Allergy (Verified 12/20/16 16:41) Other-Enter Comments Sulfa (Sulfonamide Antibiotics) Allergy (Verified 12/20/16 16:41) Rash Home Medications: Medication Instructions Recorded Cholecalciferol Vit D3 [Vitamin D3 1,000 units PO DAILY18 #0 12/02/16 (*)] Meloxicam 15 mg PO DAILY 12/02/16 Sacubitril/Valsartan 24/26Mg 1 ea PO BID 12/02/16 [Entresto 24 mg/26 mg (RX)] Vitamin B Complex [B Complex] 1 each PO DAILY 12/02/16 Allopurinol [Allopurinol 100 MG 100 mg PO DAILY 01/26/17 (*)] Allopurinol [Allopurinol 300 MG 300 mg PO DAILY 01/26/17 (RX)] Amitriptyline HCl [Elavil 50 mg 50 mg PO HS 01/26/17 (*)] Atorvastatin Calcium [Lipitor 20 20 mg PO HS 01/26/17 mg (*)] Colchicine [Colchicine (*)] 0.6 mg PO DAILY 01/26/17 Famotidine [Pepcid 20 MG (*)] 20 mg PO BID 01/26/17 Furosemide [Lasix 20 MG (*)] 20 mg PO Q3D 01/26/17 Multivitamins [Multivitamin (*)] 1 each PO DAILY@12 01/26/17 Addy-3 Fatty Acids [Fish Oil 1000 1,000 mg PO DAILY 01/26/17 mg (*)] Aspirin EC [Aspirin EC 81 mg (*)] 81 mg PO DAILY@12 02/07/17 Carvedilol [Coreg (*)] 12.5 mg PO BID 02/07/17 Lidocaine 2% Viscous 5 ml PO QID PRN 02/07/17 levOFLOXACIN [levAQUIN (*)] 500 mg PO DAILY 02/07/17 predniSONE 5 mg PO DAILY@12 02/07/17 Medical Decision Making - Diagnostics EKG Interpretation: Sinus tachycardia 109. Left bundle-branch block. Imaging Results: Imaging Impressions Chest X-Ray 02/07/17 17:56 Impression: 1. No pneumonia or effusion. 2. Cardiomegaly and pulmonary venous hypertension unchanged. No overt failure. ED Course/Re-evaluation: In the emergency department I discussed possible etiologies with the patient and family. I answered all her questions. Patient had laboratory studies drawn including blood cultures. Chest x-ray and urine were ordered. Patient was given Rocephin 1 g IV for her left knee redness. Patient states she has allergy to penicillin from childhood. She currently tolerates Keflex. I reviewed the patient's laboratory studies. White count was low at 0.3. Her hematocrit was low at 25. Her creatinine was 1.1. Mildly elevated total bilirubin. I discussed these results with the patient. On discussion with the patient and the family she stated that she has been on Keflex since yesterday. They also added that she took a dose of Levaquin today. This had been prescribed prescribed previously by her doctor they have been holding the prescription. Because she has worsening sore throat the patient took the Levaquin. I discussed the results with Dr. Ghotra who was on-call for Dr. Navarro. Based on the patient's presentation vancomycin will be given. This will cover for her knee physical exam findings and possibility of MRSA. I discussed case with Dr. Melendez. He will admit the patient. The patient is aware the plan. I answered all her questions. Differential Diagnosis: My differential includes but is not limited to pharyngitis, peritonsillar abscess, retropharyngeal abscess, neck abscess, candidiasis, tracheitis, esophagitis, cellulitis, anemia, immunosuppression, bacteremia, sepsis - Data Points Laboratory Results: Laboratory Results 02/07/17 18:15 02/07/17 18:15 02/07/17 02/07/17 02/07/17 18:16 18:15 18:15 WBC RBC Hgb Hct MCV MCH MCHC RDW Plt Count MPV Neut % (Auto) Lymph % (Auto) Hart[place] % (Auto) Eos % (Auto) Baso % (Auto) Nucleat RBC Rel Count Absolute Neuts (auto) Absolute Lymphs (auto) Absolute Monos (auto) Absolute Eos (auto) Absolute Basos (auto) Absolute Nucleated RBC Immature Gran % Immature Gran # Platelet Estimate Smear Review By PT 17.0 SEC H SEC (12.0-15.0) INR 1.39 H (0.83-1.16) APTT 30.0 SEC SEC (23.0-38.0) VBG Lactic Acid Sodium 139 mEq/L mEq/L (134-144) Potassium 3.7 mEq/L mEq/L (3.5-5.2) Chloride 101 mEq/L mEq/L (97-110) Carbon Dioxide 23 mEq/l mEq/l (22-31) Anion Gap 15 mEq/L mEq/L (8-16) BUN 26 mg/dL H mg/dL (7-23) Creatinine 1.1 mg/dL H mg/dL (0.6-1.0) Estimated GFR 48 Glucose 129 mg/dL H mg/dL (70-100) Calcium 8.0 mg/dL L mg/dL (8.5-10.4) Total Bilirubin 1.5 mg/dL H D mg/dL (0.1-1.4) Conjugated Bilirubin 0.4 mg/dL mg/dL (0.0-0.5) Unconjugated Bilirubin 1.1 mg/dL mg/dL (0.0-1.1) AST 22 IU/L IU/L (14-46) ALT 18 IU/L IU/L (9-52) Alkaline Phosphatase 85 IU/L IU/L (38-126) Total Protein 6.0 g/dL L g/dL (6.3-8.2) Albumin 3.3 g/dL L g/dL (3.5-5.0) Urine Color YELLOW Urine Appearance HAZY Urine pH 6.0 (5.0-7.5) Ur Specific [place] 1.012 (1.002-1.030) Urine Protein NEGATIVE (NEGATIVE) Urine Ketones NEGATIVE (NEGATIVE) Urine Blood NEGATIVE (NEGATIVE) Urine Nitrate NEGATIVE (NEGATIVE) Urine Bilirubin NEGATIVE (NEGATIVE) Urine Urobilinogen NEGATIVE EU EU (0.2-1.0) Ur Leukocyte Esterase NEGATIVE (NEGATIVE) Urine Glucose NEGATIVE (NEGATIVE) Patient ABO/Rh Antibody Screen Crossmatch IS Only 02/07/17 02/07/17 02/06/17 18:15 18:15 11:00 WBC 0.34 10^3/uL L* 10^3/uL (3.80-9.50) RBC 2.91 10^6/uL L 10^6/uL (4.18-5.33) Hgb 8.4 g/dL L g/dL (12.6-16.3) Hct 25.6 % L % (38.0-47.0) MCV 88.0 fL fL (81.5-99.8) MCH 28.9 pg pg (27.9-34.1) MCHC 32.8 g/dL g/dL (32.4-36.7) RDW 16.1 % H % (11.5-15.2) Plt Count 36 10^3/uL L 10^3/uL (150-400) MPV 9.3 fL fL (8.7-11.7) Neut % (Auto) Not Reported Lymph % (Auto) Not Reported Hartley % (Auto) Not Reported Eos % (Auto) Not Reported Baso % (Auto) Not Reported Nucleat RBC Rel Count 0.0 % % (0.0-0.2) Absolute Neuts (auto) Not Reported Absolute Lymphs (auto) Not Reported Absolute Monos (auto) Not Reported Absolute Eos (auto) Not Reported Absolute Basos (auto) Not Reported Absolute Nucleated RBC 0.00 10^3/uL 10^3/uL (0-0.01) Immature Gran % Not Reported Immature Gran # Not Reported Platelet Estimate Pending Smear Review By Pending PT INR APTT VBG Lactic Acid 0.8 mmol/L mmol/L (0.7-2.1) Sodium Potassium Chloride Carbon Dioxide Anion Gap BUN Creatinine Estimated GFR Glucose Calcium Total Bilirubin Conjugated Bilirubin Unconjugated Bilirubin AST ALT Alkaline Phosphatase Total Protein Albumin Urine Color Urine Appearance Urine pH Ur Specific [place] Urine Protein Urine Ketones Urine Blood Urine Nitrate Urine Bilirubin Urine Urobilinogen Ur Leukocyte Esterase Urine Glucose Patient ABO/Rh A POSITIVE Antibody Screen NEGATIVE Crossmatch IS Only See Detail Medications Given: Discontinued Medications Acetaminophen (Tylenol) 650 mg PO ONCE ONE Stop: 02/07/17 10:01 Last Admin: 02/07/17 10:01 Dose: 650 mg Acetaminophen (Tylenol) 650 mg PO ONCE ONE Stop: 02/07/17 15:31 Last Admin: 02/07/17 15:38 Dose: 650 mg Diphenhydramine HCl (Benadryl) 25 mg PO ONCE ONE Stop: 02/07/17 10:01 Last Admin: 02/07/17 10:01 Dose: 25 mg Fentanyl (Sublimaze) 50 mcg IVP EDNOW ONE Stop: 02/07/17 18:57 Last Admin: 02/07/17 19:11 Dose: 50 mcg Fentanyl (Sublimaze) 50 mcg IVP EDNOW ONE Stop: 02/07/17 19:38 Last Admin: 02/07/17 19:39 Dose: 50 mcg Furosemide (Lasix Injection) 20 mg IV ONCE ONE Stop: 02/07/17 11:12 Last Admin: 02/07/17 12:49 Dose: 20 mg Vancomycin/Sodium Chloride (Vancomycin 1 Gm (Premix)) 250 mls @ 250 mls/hr IV EDNOW ONE PRN Reason: Protocol Stop: 02/07/17 20:18 Last Admin: 02/07/17 19:39 Dose: 250 mls Departure - Departure Disposition: [facility] Clinical Impression: Candidiasis Fever Qualifiers: Fever type: unspecified Qualified Code(s): R50.9 - Fever, unspecified Cellulitis Qualifiers: Site of cellulitis: extremity Site of cellulitis of extremity: lower extremity Laterality: left Qualified Code(s): L03.116 - Cellulitis of left lower limb Condition: Fair
--- NOTE | 2017-02-07 18:29 | CPEKG ---
Heart Rate: 109 RR Interval: 550 P-R Interval: 140 QRSD Interval: 144 QT Interval: 376 QTC Interval: 507 P [place]: 40 QRS [place]: -43 T Wave [place]: 97 EKG Severity - ABNORMAL ECG - EKG Impression: SINUS TACHYCARDIA EKG Impression: LEFT BUNDLE BRANCH BLOCK Electronically Signed By: Nafisa Suarez 07-Feb-2017 20:33:22
[2017-02-07 18:43] LABS: ADD DIFF? YES; ADD MORPH? NO; ATYPICAL LYMPHOCYTE FLAG 20 (0-99); FRAGMENT RBC FLAG 0 (0-99); HEMATOCRIT 25.6 % (38.0-47.0); HEMOGLOBIN 8.4 g/dL (12.6-16.3); LEFT SHIFT FLG 10 (0-99); LIPEMIA HEMOLYSIS FLAG 80 (0-99); MEAN CELL HEMOGLOBIN 28.9 pg (27.9-34.1); MEAN CELL HEMOGLOBIN CONCENTR. 32.8 g/dL (32.4-36.7); MEAN PLATELET VOLUME 9.3 fL (8.7-11.7); PLATELET CLUMPS FLAG 0 (0-99); RED BLOOD CELL COUNT 2.91 10^6/uL (4.18-5.33); RED CELL DISTRIBUTION WIDTH 16.1 % (11.5-15.2)
[2017-02-07 18:44] LABS: COLOR YELLOW; LEUKOCYTE ESTERASE,URINE NEGATIVE (NEGATIVE); NITRITE,URINE NEGATIVE (NEGATIVE)
[2017-02-07 18:46] LABS: PLATELET COUNT 36 10^3/uL (150-400)
[2017-02-07 18:47] LABS: ADD SCAN? NO
[2017-02-07] MEDS ORDERED: fentaNYL 100 MCG/2 ML INJ IVP ONE ×2 (18:56→19:37)
[2017-02-07 18:57] LABS: ALANINE AMINOTRANSFERASE 18 IU/L (9-52); ALBUMIN 3.3 g/dL (3.5-5.0); ALKALINE PHOSPHATASE 85 IU/L (38-126); ANION GAP 15 mEq/L (8-16); BILIRUBIN,TOTAL 1.5 mg/dL (0.1-1.4); BILIRUBIN-CONJUGATED 0.4 mg/dL (0.0-0.5); BILIRUBIN-UNCONJUGATED 1.1 mg/dL (0.0-1.1); CARBON DIOXIDE 23 mEq/l (22-31); CHLORIDE 101 mEq/L (97-110); CREATININE 1.1 mg/dL (0.6-1.0); GLOMERULAR FILTRATION RATE 48; GLUCOSE 129 mg/dL (70-100); POTASSIUM 3.7 mEq/L (3.5-5.2); SODIUM 139 mEq/L (134-144)
[2017-02-07 19:00] LABS: INR 1.39 (0.83-1.16)
[2017-02-07] MEDS ORDERED: ONDANSETRON 4 MG/2 ML VIAL IVP ONE (19:00)
[2017-02-07 19:05] LABS: ASPARTATE AMINOTRANSFERASE 22 IU/L (14-46)
[2017-02-07] MEDS ORDERED: VANCOMYCIN HCL/NORMAL SALINE 250 ML IV ONE (19:19)
[2017-02-07] MEDS ORDERED: fentaNYL 100 MCG/2 ML INJ ONE (19:37)
[2017-02-07 20:19] LABS: PLATELET ESTIMATE DECREASED (ADEQ)
[2017-02-07 20:29] LABS: HYPOCHROMIA 1+
[2017-02-07 20:30] LABS: MACROCYTES 1+; MICROCYTES 1+
--- NOTE | 2017-02-07 20:46 | GHP ---
[f rep st] HISTORY AND PHYSICAL DATE OF ADMISSION: 02/07/2017 CHIEF COMPLAINT: Fever and left ear pain, neck pain and painful swallowing. HISTORY OF PRESENT ILLNESS: This is a 76-year-old female, undergoing treatment for CML, discharged f [facility] on 01/27/2017 after she was treated for hypoxemia, hyperkalemia, chronic systolic congestive heart failure, pancytopenia, tophaceous gout, [facility] she was found to have a fever while undergoing platelet transfusion. She developed a sore throat yesterday. Today it progressed to the point where she could not swallow. It is also has associated with some left ear pain. She was noted to have a temperature up to 102 d egrees Fahrenheit. She fell last week in front of [facility] where she skinned her knee. I have noticed that her left knee has become more red over the past 24 hours. As an outpatient, she has bee n taking Keflex and was started on levofloxacin earlier today. PAST MEDICAL HISTORY: 1. Recent hospitalization for hypoxemia, thought to be due to obesity hypoventilation syndrome. 2. Hypokalemia, thought to be due to secondary adrenal insufficiency. 3. Chronic systolic congestive heart failure. Ejection fraction 28%. 4. CML on chemotherapy. 5. Pancytopenia. 6. Tophaceous gout. 7. Chronic kidney disease. 8. Hyperlipidemia. 9. Hypertension. PAST SURGICAL HISTORY: Cholecystectomy, hysterectomy, oophorectomy. HOME MEDICATIONS: Reviewed. Refer to [employer] for details. ALLERGIES: Penicillin and sulfa. 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 She rarely drinks. FAMILY HISTORY: Reviewed and significant for hypertension. REVIEW OF SYSTEMS: Comprehensive 10-point review of systems was done and is negative, except for as mentioned in the HPI. PHYSICAL EXAMINATION: VITAL SIGNS: Blood pressure 129/77, pulse 111, respiratory rate 18, O2 satura tion 96% on 2 L. Temperature afebrile. Currently, the T max is 39.1. GENERAL: Ill-appearing but no t in acute distress. HEENT: Head: Normocephalic. Atraumatic. Eyes: PERRLA. Sclerae anicteric. Mouth: Moist mucous membranes with white-colored erosion in the posterior oropharynx. Ears: Tympan ic membranes are intact without signs of obvious infection. EACs are partially impacted with cerumen . NECK: Supple. CARDIOVASCULAR: S1, S2. No JVD. No lower extremity edema. PULMONARY: Lungs ar e clear. No wheezes, rales, or rhonchi. ABDOMEN: Distended with normoactive bowel sounds. There i s no guarding or rebound tenderness. EXTREMITIES: No clubbing or cyanosis. NEURO: Cranial nerves 2-12 grossly intact. No focal motor or sensory deficits. SKIN: Clear. No rashes. Medication port in right chest without signs of infection. Left knee has a bandage in place. The area is mildly war m to touch. There is mild degree of lymphangitic streak streaking from the patella traveling up the medial aspect of the left thigh. DIAGNOSTICS: WBC 0.34, hemoglobin 8.4, hematocrit 25.6, platelets 36. Percent neutrophils is curren tly pending. Absolute neutrophils were not reported. INR 1.39. Sodium 139, potassium 3.7, chloride 101, CO2 of 23, BUN 26, creatinine 1.1, glucose 129, total bilirubin 1.5. LFTs otherwise unremarkab le. EKG, which I visualized and personally interpreted, shows sinus tachycardia, rate 109 beats per minute, with left bundle branch block. EKG done January 26, 2017, was reviewed. The left bundle w as not present. Chest x-ray: No pneumonia. There is cardiomegaly. ASSESSMENT AND PLAN: This is a 76-year-old female undergoing treatment for CML presenting with: 1. Neutropenic fever with evidence for possible early cellulitis of the left knee as well as see bel ow. 2. Thrush. 3. New left bundle branch block on EKG without complaints of chest pain. 4. Pancytopenia with anemia and thrombocytopenia. PLAN: 1. Admit to the hospital. 2. Send blood cultures which have been done. 3. Empiric antibiotics with vancomycin given her possible cellulitis, as well as cefepime. 4. Oncology consultation. 5. Stat troponin, cycle troponins. The patient should be monitored on telemetry. Also obtain an ec hocardiogram given her new left bundle branch block. 6. Will order Diflucan to treat her thrush since it seems to be pretty symptomatic and severe. 7. The patient requests to be DNR status. 8. Chemical DVT prophylaxis is contraindicated in the setting of her severe thrombocytopenia. /[id number]/MODL
[2017-02-07] MEDS ORDERED: LIDOCAINE 2% VISCOUS 15 ML UDCUP PO ONE (20:54)
[2017-02-07] MEDS: CEFEPIME HCL 2 GM in D5W 100 ML IV SCH (22:43)
[2017-02-07] MEDS: FLUCONAZOLE 100 MG TAB PO SCH (22:46)
[2017-02-07] MEDS ORDERED: FAMOTIDINE 20 MG TAB PO SCH (23:06)
[2017-02-07] MEDS: CARVEDILOL 6.25 MG TAB PO SCH (23:24)
[2017-02-07] MEDS: oxyCODONE IR 5 MG TAB PO PRN (23:25)
[2017-02-07] MEDS: AMITRIPTYLINE HCL 25 MG TAB PO SCH (23:32)
[2017-02-08] MEDS: HYDROmorphONE/DILAUDID 1 MG/ML INJ IVP PRN ×3 (01:08→19:16)
[2017-02-08 08:02] LABS: ADD MORPH? NO; ATYPICAL LYMPHOCYTE FLAG 0 (0-99); FRAGMENT RBC FLAG 0 (0-99); HEMATOCRIT 24.9 % (38.0-47.0); LIPEMIA HEMOLYSIS FLAG 80 (0-99); MEAN CELL HEMOGLOBIN 28.8 pg (27.9-34.1); MEAN CELL HEMOGLOBIN CONCENTR. 32.1 g/dL (32.4-36.7); MEAN CELL VOLUME 89.6 fL (81.5-99.8); MEAN PLATELET VOLUME 9.6 fL (8.7-11.7); PLATELET CLUMPS FLAG 0 (0-99); RED BLOOD CELL COUNT 2.78 10^6/uL (4.18-5.33)
[2017-02-08 08:05] LABS: PLATELET COUNT 24 10^3/uL (150-400)
[2017-02-08 08:06] LABS: ADD SCAN? NO
[2017-02-08] MEDS ORDERED: NS 1,000 ML IV ONE (08:10)
[2017-02-08 08:14] LABS: ALANINE AMINOTRANSFERASE 39 IU/L (9-52); ALBUMIN 3.4 g/dL (3.5-5.0); ALKALINE PHOSPHATASE 130 IU/L (38-126); ANION GAP 15 mEq/L (8-16); ASPARTATE AMINOTRANSFERASE 35 IU/L (14-46); BILIRUBIN,TOTAL 1.2 mg/dL (0.1-1.4); CARBON DIOXIDE 24 mEq/l (22-31); CHLORIDE 103 mEq/L (97-110); CREATININE 1.3 mg/dL (0.6-1.0); GLOMERULAR FILTRATION RATE 40; GLUCOSE 161 mg/dL (70-100); POTASSIUM 4.2 mEq/L (3.5-5.2); SODIUM 142 mEq/L (134-144); TOTAL PROTEIN 6.7 g/dL (6.3-8.2)
[2017-02-08] MEDS: CEFEPIME HCL 2 GM in D5W 100 ML IV SCH ×2 (08:17→20:09)
[2017-02-08 08:25] LABS: TROPONIN I 0.058 ng/mL (0.000-0.034)
[2017-02-08] MEDS: ACETAMINOPHEN 650 MG SUPP PR PRN ×2 (08:25→12:16)
--- NOTE | 2017-02-08 08:49 | WOCRNPDOC ---
WOCRN Advanced Assessment Note - Skin Integrity Problem, Advanced Assess Left Knee Abrasion Dressing Type: Allevyn Life Dressing Description: Clean/Dry, Intact Exudate Amount: None Integumentary Issue Intervention: Visualized Under Dressing Anisha Wound Tissue: Erythema, Painful/Tender Wound Bed Constitution: Stable Eschar (100%) Site Measurement - Head-to-Toe Length X Width X Depth (cm): 3.8x3.0x0 Skin Integrity Problem Comment: Wound is stalled due to extensive necrosis. Wound needs to be moistened. Wound care will round again next week.
[2017-02-08 08:53] LABS: ADD DIFF? NO
[2017-02-08] MEDS ORDERED: COLCHICINE 0.6 MG CAP/TAB PO SCH (09:00)
--- NOTE | 2017-02-08 09:13 | HOSPPROG ---
Hospitalist Progress Note Assessment/Plan: Neutropenic fever - ANC this am 30. Potential sources are left knee cellulitis vs thrush / pharyngitis. CXR clear, UA neg. No ellington or nuchal rigidity. Lactate nl. BCx's pending. -Cont Cefepime, Vanc, Fluconazole for now -Send PCT -ID consulted to help determine source, discussed case with Dr. Tam Chronic systolic heart failure - Echo 1 week ago at [facility] showed EF 28% , mod RV dysfunction, severe MR, mod TR. She appears on the dry side with rising Cr, decreased oral intake. No e/o acute HF on CXR. Wt down 2-3 kg from her dry weight. Received IV Lasix yesterday after blood products. -hold Lasix, Entresto for now -gentle fluid bolus and will run NS at 100/hr with close attention to respiratory status -check BNP -monitor I&O's, daily weights Elevated trop - likely strain in setting of acute infection -trend trop -discussed echo with cards, no new WMA -repeat EKG CML - Diagnosed 11/17/2016, followed by Dr. Navarro, on Dacogen chemotherapy. Pancytopenia - secondary to chemo. Recently transfused 2u PRBC's and 1 u platelets. Discussed case with Dr. Ghotra. -no transfusion indicated at this time -trend cbc Adrenal insufficiency - will give stress dose steroids while acutely ill. Chronic hypoxemia - thought secondary to OHS, on baseline O2 requirement of 2 LPM LBBB - this is chronic, had recent echo 7 days ago. Code status - discussed with daughter, who is DPOA. Pt is DNR. DVT PPLX - Lovenox c/i due to low plts, SCD's Dispo - will require >48 hrs hospitalization for ongoing management of neutropenic fever Subjective: Pt is weak, tired. She complains of pain all over. Continues to have high fevers this am. No CP/SOB. No abdominal pain, N/V/D. She skinned her knee and some redness noted over this area. Denies ellington or neck pain. Some throat pain, difficulty swallowing and ear pain noted. Objective: Vital Signs Temp Pulse Resp BP Pulse Ox 39.5 C H 128 H 27 H 107/62 93 02/08/17 07:59 02/08/17 07:59 02/08/17 07:59 02/08/17 07:59 02/08/17 07:59 Laboratory Results 02/08/17 07:45 02/08/17 07:45 02/07/17 02/08/17 02/09/17 05:59 05:59 05:59 Intake Total 300 Output Total 200 Balance 100 PT 17.0 SEC (12.0-15.0) H 02/07/17 18:15 INR 1.39 (0.83-1.16) H 02/07/17 18:15 - Physical Exam Constitutional: chronically ill appearing Eyes: PERRL Ears, Nose, Mouth, Throat: dry mucous membranes, other (No nuchal rigidity, negative brudzinki's) Cardiovascular: tachycardia Respiratory: no respiratory distress, clear to auscultation Gastrointestinal: normoactive bowel sounds, soft, non-tender abdomen Skin: warm Musculoskeletal: generalized weakness Neurologic: AAOx3 Psychiatric: interacting appropriately ICD10 Worksheet Patient Problems: Problems Problem Status Onset Candidiasis Acute Cellulitis Acute Fever Acute CHF (congestive heart failure) Acute Dehydration Acute Elevated brain natriuretic peptide (BNP) level Acute Elevated serum creatinine Acute Weakness Acute
[2017-02-08] MEDS ORDERED: HYDROCORTISONE 100 MG/2 ML VIAL IVP SCH (09:15)
--- NOTE | 2017-02-08 09:33 | ECHO ---
[email or web address] [address] Main: [phone] Fax: [email or web address] Echocardiogram Name: JULIA MONROE MR#: [id number] Study Date: 02/08/2017 Study Time: 08:10 AM Date of : 1940 Age: 76 year(s) Height: 157.5 cm (62 in.) Weight: 74.84 kg (165 lb.) BSA: 1.76 m2 Gender: Female Examination: Echo Indication: LBBB, CHF, Previous echo 7 days ago, [facility] chronic LBBB, EF at that time was 28% Image Quality: Contrast: Requested by: Grant Melendez BP: 105 mmHg/62 mmHg Heart Rate: Rhythm: Left bundle branch block Indication: LBBB, CHF, Previous echo 7 days ago, [facility] chronic LBBB, EF at that time was 28% Procedure Staff Prototype Model Maker: Ninoska Sena Reading Physician: Hyun Mead Conclusions: Moderately to severely reduced systolic function. There is paradoxic septal motion suggestive of bundle branch block, paced cardiac rhythm, or prior cardiac surgery. EF estimate is 25-30%. The basal anteroseptal, basal anterior, basal lateral, basal septal, mid anteroseptal, mid anterior and mid septal Normal size right ventricle. Mildly to moderately reduced right ventricular function. The left atrium is moderately dilated. Moderate mitral valve regurgitation is present. Moderate tricuspid regurgitation is present. RVSP is 54 mmHG. Compared with 10/2016 study overall similar findings Measurements: Chambers Valvular Assessment AV/MV Valvular Assessment TV/PV Normal Normal Normal Name Value Range Name Value Range Name Value Range Ao Rimma (MM): 3.0 cm (2.2 cm-3.7 AV Vmax: 0.86 m/s (1 m/s-1.7 TR Vmax: 3.31 mm/s ( - ) cm) m/s) TR PGmax: 44 mmHg ( - ) IVSd (2D): 1.0 cm (0.6 cm-1.1 AV maxP mmHg ( - ) syst. PAP: 54 mmHg ( - ) cm) AV meanP mmHg ( - ) LVDd (2D): 4.9 cm (3.9 cm-5.3 MV E Vmax: 1.50 m/s ( - ) cm) LVPWd (2D): 0.9 cm ( - ) Continued Measurements: Valvular Assessment TV/PV Patient: JULIA MONROE Study Date: 02/08/2017 Page 1 of 2 08:10 AM Name Value CVP (est.): 10 Findings: Left Ventricle: Normal size left ventricle. Moderately to severely reduced systolic function. There is paradoxic septal motion suggestive of bundle branch block, paced cardiac rhythm, or prior cardiac surgery. EF estimate is 25-30%. The basal anteroseptal, basal anterior, basal lateral, basal septal, mid anteroseptal, mid anterior and mid septal wall segments are hypokinetic. Right Ventricle: Normal size right ventricle. Mildly to moderately reduced right ventricular function. Left Atrium: The left atrium is moderately dilated. Right Atrium: The right atrium is normal in size. Mitral Valve: The mitral valve is normal in appearance. Moderate mitral valve regurgitation is present. Aortic Valve: The aortic valve is normal in appearance. Tricuspid Valve: The tricuspid valve appears normal. Moderate tricuspid regurgitation is present. RVSP is 54 mmHG. Pulmonic Valve: Pulmonary valve not well visualized. Pericardium: Trivial anterior pericardial effusion. (No Signature Object) Wall Motion Scores Patient: JULIA MONROE Study Date: 02/08/2017 Page 2 of 2 08:10 AM [id number]
[2017-02-08 09:37] LABS: PLATELET ESTIMATE DECREASED (ADEQ)
--- NOTE | 2017-02-08 09:37 | CPEKG ---
Heart Rate: 125 RR Interval: 480 P-R Interval: 100 QRSD Interval: 132 QT Interval: 340 QTC Interval: 491 P [place]: 41 QRS [place]: -44 T Wave [place]: 109 EKG Severity - ABNORMAL ECG - EKG Impression: SINUS TACHYCARDIA EKG Impression: IVCD, CONSIDER ATYPICAL LBBB Electronically Signed By: Damon Figueroa 08-Feb-2017 17:23:06
[2017-02-08] MEDS ORDERED: NS 250 ML IV PRN (09:47)
[2017-02-08] MEDS: HYDROCORTISONE 100 MG/2 ML VIAL IVP SCH ×3 (09:57→20:46)
[2017-02-08 10:04] LABS: PROCALCITONIN 1.58 ng/mL (0.02-0.10)
[2017-02-08] MEDS: FAMOTIDINE 20 MG/NACL 50 ML IV SCH ×2 (10:05→20:03)
[2017-02-08] MEDS: VITAMIN B COMPLEX 1 EA CAP/TAB PO SCH (10:17)
[2017-02-08] MEDS: OMEGA-3 FATTY ACIDS 1,000 MG CAP PO SCH (10:17)
[2017-02-08] MEDS: FLUCONAZOLE 100 MG TAB PO SCH (10:25)
[2017-02-08] MEDS: NS 1,000 ML IV SCH ×3 (10:30→20:15)
[2017-02-08] MEDS ORDERED: predniSONE 5 MG TAB PO SCH (12:00)
[2017-02-08] MEDS: LIDOCAINE 2% VISCOUS 15 ML UDCUP PO PRN (12:29)
[2017-02-08] MEDS: MULTIVITAMINS 1 EACH TAB PO SCH (12:31)
[2017-02-08] MEDS: oxyCODONE IR 5 MG TAB PO PRN (13:08)
[2017-02-08] MEDS: ASPIRIN EC 81 MG TAB PO SCH (14:19)
[2017-02-08] MEDS: ALLOPURINOL 100 MG TAB PO SCH (14:19)
--- NOTE | 2017-02-08 14:42 | ASMTCASEMG ---
Living Arrangements What is your living Answers: Alone arrangement? Who do you live with? Type Of Residence What kind of residence do Answers: House you live in? Discharge Plan Comments Coordination Status Comments Notes: Chart reviewed and spoke w/ MIGUEL Tan, pt is a 76 y/o female admitted w/ a fever, left ear pain, neck pain and difficulty swallowing. Pt is a DNR. Pt lives alone in [place] and has a supportive daughter that lives in [place]. PT and speech are ordered, awaiting recommendations. Needs TBD at this time. CM to follow. Date Signed: 02/08/2017 02:41 PM Electronically Signed By:PAMELA Medellin
[2017-02-08] MEDS: CHOLECALCIFEROL VIT D3 1,000 UNITS TAB PO SCH (18:26)
--- NOTE | 2017-02-08 19:07 | GCON ---
[f rep st] CONSULTATION HEMATOLOGY/ONCOLOGY CONSULTATION NOTE REASON FOR CONSULTATION: Neutropenic fever. HISTORY OF PRESENT ILLNESS: The patient is a very pleasant 76-year-old female, currently undergoing treatment for chronic myelomonocytic leukemia (CMML), who is admitted with neutropenic fever. The patient's oncology history dates to November of this year, when she was diagnosed with CMML. She started decitabine December 25, and received 1st cycle. Following that 1st treatment there was some sense that her red blood cell transfusion requirements had the decreased. She was then treated with her 2nd cycle January 22 through January 26. She was admitted to the hospital on January 27, with hypoxia which was ultimately felt to be primarily due to obesity with hypoventilation syndrome. She was also found to be hyperkalemic and this was felt to be due to adrenal insufficiency. This was felt to have come on after she stopped a long course of prednisone for her gout. She was on a long course of prednisone due to gout and the hyperkalemia developed approximately 1 week following that. The patient was resumed on prednisone. She was seen in the office earlier this week , and found to have a white count of 0.37, hemoglobin of 6.7, and a platelet count of 15,000. As a result, she was transfused yesterday with blood and platelet products. During that transfusion she developed a fever of 102.1. The patient was then admitted for further evaluation of the neutropenic fever. She is accompanied currently with her daughter. She has been diagnosed with thrush and has had severe pain with swallowing now for several days. She is essentially not eaten anything orally. She noted this morning that she started having some tenderness over her left cheek as well as a left earache. She also fell a few days ago and fell on her left knee. In the emergency room last night there was concern that there was some erythema around the knee streaking up the thigh which could have represented a cellulitis. PAST MEDICAL HISTORY: 1. Chronic myelomonocytic leukemia. 2. Chronic systolic congestive heart failure with baseline EF around 28%. 3. Tophaceous gout. 4. Chronic kidney disease. 5. Hypertension. 6. Recent admission for hypoxia thought to be due to obesity. 7. Recent admission for hyperkalemia felt to be due to adrenal insufficiency. PAST SURGICAL HISTORY: Cholecystectomy. FAMILY HISTORY: Noncontributory. SOCIAL HISTORY: She has held multiple jobs, but the denies any exposure to chemicals. Alcohol use is rare. REVIEW OF SYSTEMS: 10-point review of systems is negative other than HPI. PHYSICAL EXAM: GENERAL: She is an ill-appearing elderly female, who is clearly in pain related to the sore throat. VITAL SIGNS: Blood pressure 107/60 , heart rate 126, respiratory rate 29. O2 sat is 94% on 2 L. Temperature is 39. HEENT: She has alopecia. Oropharynx with dry mucous membranes. Thrush noted in the posterior pharynx. The left cheek is slightly pink and tender to palpation, and she is tender to palpation over the left mastoid and preauricular area. LUNGS: Clear to auscultation anteriorly. HEART: Regular rate. LEFT KNEE: Has a bandage in place, with some faint erythema streaking up the thigh. LABORATORY DATA: Creatinine 1.3, potassium 4.2. White blood cell count 0.1, hematocrit 24.9, platelet count 24,000. IMAGING: Chest x-ray unremarkable. IMPRESSION: This is a 76-year-old female with multiple medical problems. More recently, diagnosed with chronic myelomonocytic leukemia status post her 2nd cycle of decitabine. She is currently day 17, cycle 2. She is admitted with neutropenic fever and thrush. She may have other sources of infection, including some process involving her left cheek or sinus, and possibly a cellulitis over the left knee. She has not had any further imaging right now in terms of CT scan of the chest, abdomen or pelvis, but currently there are no localizing symptoms other than she has noted a slight cough that came on today. The patient is having difficulty swallowing pills. She has been pancultured and started on cefepime and vancomycin. For now, I will switch the Diflucan to intravenous. We may need to do further imaging of the sinus area, but will discuss with ID. Once her cardiac issues have been stabilized, it would be appropriate to consider transfer to [address] [place] [id number]. We will continue to follow along with you. /[id number]/MODL MTDD
[2017-02-08] MEDS ORDERED: VANCOMYCIN HCL/NORMAL SALINE 250 ML IV SCH (19:30)
--- NOTE | 2017-02-08 19:57 | GCON ---
[f rep st] CONSULTATION INPATIENT INFECTIOUS DISEASE CONSULTATION REFERRING PHYSICIAN: Ainsley Ashby MD REASON FOR CONSULTATION: Neutropenic fever. HISTORY OF PRESENT ILLNESS: The patient is a 76-year-old female with CMML. She is currently being m anaged by Dr. Shai Navarro. She has gotten 2 cycles of her chemotherapy, which is not a nikolski-bas ed therapy. Instead is encouraging differentiation of the undifferentiated cancer cells. Therefore, it is not expected to cause much mucositis. The [facility] yesterday late afternoon complaining of fever and an exquisitely sore throat. The throat b ecame painful 2 days prior, but has quickly escalated in severity. She notes that the pain is worse on the left than it is on the right. She was using nystatin swish and swallow due to prior episodes of thrush during treatment for the CMML. The patient has noted today upon evaluation that her throat pain is reduced, likely secondary to topical lidocaine swishes. She denies any other significant co mplaint apart from fever. When she was seen in the emergency room, her fever maxed at 39.1. It was 39.5 earlier today. She was placed empirically on cefepime and vancomycin. Cultures are pending. PAST MEDICAL HISTORY: 1. CMML, currently on 2nd cycle of chemotherapy. 2. Hypokalemia, perhaps due to secondary adrenal insufficiency. 3. Chronic congestive heart failure. EF of 28%. 4. Pancytopenia secondary to #1. 5. History of gout. 6. Chronic kidney disease. 7. Hyperlipidemia. 8. Hypertension. PAST SURGICAL HISTORY: 1. Status post hysterectomy and oophorectomy. 2. Status post cholecystectomy. MEDICATIONS: ANTIBIOTICS: 1. Vancomycin. 2. Cefepime. ALLERGIES: The patient is allergic to both penicillin and sulfa. 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 Only occasional alcohol drink. FAMILY HISTORY: Reviewed and noncontributory. REVIEW OF SYSTEMS: Apart that detailed above in the history present illness, a comprehensive 10-syst em review is negative. PHYSICAL EXAMINATION: VITAL SIGNS: Temperature maximum is 39.5, temperature current is 39.0, heart rate is 126, respiratory rate is 29, blood pressure is 107/60. GENERAL: The patient is a well-forme d, well-nourished, elderly female, in no acute distress. She is moderately toxic in appearance. She is alert and oriented x3. She is in pleasant demeanor. HEENT: Normocephalic for age. Atraumatic. No scleral icterus. No oral lesion or drainage from the nares. Eyes, lids, and conjunctivae withi n normal limits. Pupils are equal and round bilaterally. NECK: Supple. No meningismus. LUNGS: C lear to auscultation bilaterally with good effort. HEART: Tachycardic, but regular. No murmur, rub , or gallop noted. No significant peripheral edema. ABDOMEN: Soft, nontender. No masses. SKIN: Warm and dry to the touch. No rash or lesion seen. MUSCULOSKELETAL: No muscle tenderness is noted. No joint line effusion or arthritis seen. NEURO: Cranial nerves 2-12 seem to be intact. Peripher al sensation seems intact in extremities. LABORATORY DATA: The patient has a CBC dated 02/08/2017, shows a white blood cell count of 0.13, hem oglobin of 8.0, hematocrit 24.9, and platelet count of 24. Differential shows 77%, lymphocytes 23%, neutrophils, absolute neutrophil count less than 40. Serum chemistries from 02/08/2017 show sodium 142, potassium 4.2, chloride of 103, bicarbonate of 24, BUN of 29, and creatinine 1.3. AST is 35, ALT is 39, total protein is 6.7. Urinalysis from 02/07/2017 is within normal limits. MICROBIOLOGIC DATA: The patient has blood cultures dated 02/07/2017, which are pending. ASSESSMENT: Neutropenic fever. No clear obvious source. We will continue coverage with both vancom ycin and cefepime. We will follow up blood cultures, as well as fever curve and clinical course. It clear that she has significant thrush and candidal esophagitis. I suspect that with the introductio n of fluconazole that she will improve within 2-3 days. PLAN: 1. Continue coverage with vancomycin, cefepime, and fluconazole. 2. Follow clinical course. /[id number]/MODL
[2017-02-08] MEDS: AMITRIPTYLINE HCL 25 MG TAB PO SCH (20:03)
[2017-02-08] MEDS: ATORVASTATIN CALCIUM 20 MG TAB PO SCH (20:03)
[2017-02-09] MEDS: HYDROCORTISONE 100 MG/2 ML VIAL IVP SCH ×4 (03:21→20:54)
[2017-02-09] MEDS: HYDROmorphONE/DILAUDID 1 MG/ML INJ IVP PRN (03:21)
[2017-02-09 05:36] LABS: ADD MORPH? NO; ATYPICAL LYMPHOCYTE FLAG 10 (0-99); FRAGMENT RBC FLAG 0 (0-99); HEMATOCRIT 22.4 % (38.0-47.0); HEMOGLOBIN 7.1 g/dL (12.6-16.3); LIPEMIA HEMOLYSIS FLAG 80 (0-99); MEAN CELL HEMOGLOBIN 29.2 pg (27.9-34.1); MEAN CELL HEMOGLOBIN CONCENTR. 31.7 g/dL (32.4-36.7); MEAN CELL VOLUME 92.2 fL (81.5-99.8); MEAN PLATELET VOLUME 9.6 fL (8.7-11.7); PLATELET CLUMPS FLAG 0 (0-99); RED BLOOD CELL COUNT 2.43 10^6/uL (4.18-5.33); RED CELL DISTRIBUTION WIDTH 17.2 % (11.5-15.2)
[2017-02-09 05:44] LABS: ADD SCAN? NO; PLATELET COUNT 16 10^3/uL (150-400)
[2017-02-09 05:53] LABS: ADD DIFF? NO
[2017-02-09 06:05] LABS: ALANINE AMINOTRANSFERASE 53 IU/L (9-52); ALBUMIN 2.6 g/dL (3.5-5.0); ALKALINE PHOSPHATASE 129 IU/L (38-126); ANION GAP 13 mEq/L (8-16); ASPARTATE AMINOTRANSFERASE 50 IU/L (14-46); BILIRUBIN,TOTAL 0.7 mg/dL (0.1-1.4); CALCIUM 7.3 mg/dL (8.5-10.4); CARBON DIOXIDE 20 mEq/l (22-31); CHLORIDE 107 mEq/L (97-110); CREATININE 1.3 mg/dL (0.6-1.0); GLOMERULAR FILTRATION RATE 40; GLUCOSE 126 mg/dL (70-100); POTASSIUM 4.2 mEq/L (3.5-5.2); SODIUM 140 mEq/L (134-144); TOTAL PROTEIN 5.3 g/dL (6.3-8.2)
[2017-02-09 06:18] LABS: PLATELET ESTIMATE DECREASED (ADEQ)
[2017-02-09] MEDS ORDERED: FLUCONAZOLE/NaCl 100 ML IV SCH (09:00)
[2017-02-09] MEDS: ALLOPURINOL 100 MG TAB PO SCH (09:47)
[2017-02-09] MEDS: OMEGA-3 FATTY ACIDS 1,000 MG CAP PO SCH (09:47)
[2017-02-09] MEDS: VITAMIN B COMPLEX 1 EA CAP/TAB PO SCH (09:47)
--- NOTE | 2017-02-09 10:19 | PCMIDPN ---
Assessment/Plan: 1. Neutropenic fever: I am concerned about her left-sided facial pain, sore throat, and new trismus. Will change cefepime to meropenem for better anaerobic coverage, and obtain CT scans with low-dose contrast of the head and neck (and chest, see below). ENT may need to consult, but for now will start with imaging. Patient has been neutropenic for about a week, making Aspergillus less likely but still plausible. Mucormycosis also in differential diagnosis, but would expect her to be much sicker. Continue vancomycin and levofloxacin as is. (See below). 2. Dry cough: Exam notable for crackles at bilateral lung bases. Obtain respiratory PCR, and urine Legionella antigen. Continue levofloxacin for atypical coverage for now. May need bronchoscopy if clinically deteriorates from a respiratory standpoint. Not on coverage for Pneumocystis. 3. Left knee abrasion: The area does not look particularly cellulitic at this point in time, although she does have a history of lymphangitis streaking per the patient's daughter just 2 days ago. Continue antibiotics in the form of vancomycin, meropenem and levofloxacin. Continue wound care. 4. Oropharyngeal candidiasis: Patient has a history of non Velma albicans in the past. Will change fluconazole to Micafungin, and obtain fungal culture of the throat. Nothing to suggest esophageal disease. Over 45 minutes was spent with this patient today, coordinating care in speaking to her other medical providers. 02/09/17 10:21 Subjective: Patient is complaining of difficulty opening her mouth and pain which radiates to the left side of her face. Continues to have ongoing sore throat and dry cough. Denies shortness of breath or chest pain. No headache, or eye pain. Denies rhinorrhea. No abdominal pain or diarrhea. No vaginal discharge or dysuria. She has not had any recent water exposures, sauna or Jacuzzi exposures. No pets. No recent travel. No exposure to anyone who has been sick , per se. States that her symptoms began fairly abruptly a few days ago in the form of left facial pain, sore throat and dry cough. Objective: Vancomycin 1 g IV daily day 1 Levaquin 500 mg p. o. daily day 2 Cefepime 2 g IV q.12 hours day 2 Hydrocortisone 50 mg IV q.6 hours Vital Signs Temp Pulse Resp BP Pulse Ox 36.4 C 108 H 20 106/56 L 94 02/09/17 07:28 02/09/17 07:28 02/09/17 07:28 02/09/17 07:28 02/09/17 07:28 Laboratory Results 02/09/17 05:20 02/09/17 05:20 02/08/17 02/09/17 02/10/17 05:59 05:59 05:59 Intake Total 300 3654 Output Total 200 500 Balance 100 3154 Blood cultures x2 no growth so far Group a strep screen and DNA test negative - Physical Exam General Appearance: no apparent distress, obese EENT: other (Patient has dentures in place that she just glued in place and does not want to remove. No significant posterior oropharynx dull erythema per se. Tonsils and tonsillar pillars look fine. She does have what I would describe as white plaques that are difficult to scrape off on her buccal mucosa and posterior oropharynx. Patient has some mild swelling and tenderness along her left maxillary sinus ridge. No erythema. Some tenderness when I tug her left ear. Tympanic membranes look fine bilaterally. Neck exam within normal limits. I cannot appreciate any obvious abnormality when I look into her nostrils bilaterally. Again, tenderness over left maxillary sinus, with subtle swelling.) Respiratory: crackles (At lung bases, otherwise clear upper lung cho.) Cardiac/Chest: tachycardia, other (Port right upper chest looks fine with no tenderness or erythema.) Abdomen: non-tender, soft, distended Skin: other (Patient has a large abrasion over her left knee. This has some surrounding purplish discoloration, but no significant cellulitis. There is a large scab or eschar. No evidence of lymphangitic streaking. She is able to bend her knee without discomfort. No other rashes notable. Bruise on her left hand where she fell.) Neuro/Psych: oriented x 3 ICD10 Worksheet Patient Problems: Problems Problem Status Onset Candidiasis Acute Cellulitis Acute Fever Acute CHF (congestive heart failure) Acute Dehydration Acute Elevated brain natriuretic peptide (BNP) level Acute Elevated serum creatinine Acute Weakness Acute
[2017-02-09] MEDS: MEROPENEM 1 GM in NS 100 ML IV SCH ×2 (10:23→20:56)
--- NOTE | 2017-02-09 11:00 | HOSPPROG ---
Hospitalist Progress Note Assessment/Plan: Neutropenic fever - ANC this am 10. Potential sources are left knee cellulitis vs thrush / pharyngitis vs facial source with pain / swelling. CXR clear, UA neg. No ellington or nuchal rigidity. Lactate nl. BCx's pending. Discussed case with ID. -Atbx changed to Meropenem, Vanc, Micafungin by ID -CT of face, neck, chest Chronic systolic heart failure - Echo 1 week ago at [facility] showed EF 28% , mod RV dysfunction, severe MR, mod TR. Dry on admission. No e/o acute HF on CXR. Looks like her dry weight is around 77 kg, now 78.6 kg after IVF resuscitation yesterday. BNP elevated. -cont IVF's as will receive contrast dye today -holding Lasix, Entresto for now, will likely resume Lasix in am -cont to hold Entresto with VALE -monitor I&O's, daily weights Dysphagia - likely secondary to candidiasis -consider GI eval / EGD if not improving if Micafungin Elevated trop - likely strain in setting of acute infection, peaked 0.058, now trending down. CP free. -discussed echo with cards, no new WMA CML - Diagnosed 11/17/2016, followed by Dr. Navarro, on Dacogen chemotherapy. -appreciate onc assistance Pancytopenia - secondary to chemo. 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 Galindo. -no transfusion indicated at this time -trend cbc Adrenal insufficiency - cont stress dose steroids while acutely ill. Chronic hypoxemia - thought secondary to OHS, on baseline O2 requirement of 2 LPM LBBB - this is chronic, had recent echo 7 days ago. Code status - discussed with daughter, who is DPOA. Pt is DNR. DVT PPLX - Lovenox c/i due to low plts, SCD's Dispo - will require >48 hrs hospitalization for ongoing management of neutropenic fever Subjective: PT feels much better. Up in chair. Breathing fine. Denies CP or SOB. No orthopnea. No fevers for >24 hrs. Pain in left neck and left supraclavicular region which is a bit swollen. Still painful to swallow, but a bit better. Objective: Vital Signs Temp Pulse Resp BP Pulse Ox 36.4 C 108 H 20 106/56 L 94 02/09/17 07:28 02/09/17 07:28 02/09/17 07:28 02/09/17 07:28 02/09/17 07:28 Laboratory Results 02/09/17 05:20 02/09/17 05:20 02/08/17 02/09/17 02/10/17 05:59 05:59 05:59 Intake Total 300 3654 Output Total 200 500 Balance 100 3154 PT 17.0 SEC (12.0-15.0) H 02/07/17 18:15 INR 1.39 (0.83-1.16) H 02/07/17 18:15 - Physical Exam Constitutional: chronically ill appearing Eyes: PERRL Ears, Nose, Mouth, Throat: moist mucous membranes, other (supraclavicular swelling without erythema, +left neck tenderness) Cardiovascular: regular rate and rhythym Respiratory: no respiratory distress, clear to auscultation Gastrointestinal: normoactive bowel sounds, soft, non-tender abdomen Skin: warm Musculoskeletal: full muscle strength Neurologic: AAOx3 Psychiatric: interacting appropriately ICD10 Worksheet Patient Problems: Problems Problem Status Onset Candidiasis Acute Cellulitis Acute Fever Acute CHF (congestive heart failure) Acute Dehydration Acute Elevated brain natriuretic peptide (BNP) level Acute Elevated serum creatinine Acute Weakness Acute
[2017-02-09] MEDS: ASPIRIN EC 81 MG TAB PO SCH (11:26)
[2017-02-09] MEDS: MULTIVITAMINS 1 EACH TAB PO SCH (11:26)
[2017-02-09] MEDS: CEFEPIME HCL 2 GM in D5W 100 ML IV SCH (11:33)
[2017-02-09] MEDS: MICAFUNGIN NA 100 MG in NS 100 ML IV SCH (11:34)
[2017-02-09] MEDS: FAMOTIDINE 20 MG/NACL 50 ML IV SCH ×2 (12:58→20:56)
[2017-02-09] MEDS: oxyCODONE IR 5 MG TAB PO PRN (15:14)
[2017-02-09] MEDS ORDERED: IOPAMIDOL (ISOVUE-300) 100 ML BTL ONE (17:17)
[2017-02-09] MEDS: CHOLECALCIFEROL VIT D3 1,000 UNITS TAB PO SCH (17:34)
--- NOTE | 2017-02-09 18:19 | SOAPPROG ---
SOAP Progress Note Assessment/Plan: Assessment: * Neutropenic fever: AF, on broad-spectrum abx. ?respiratory, skin source. Evaluation with CT of left facial/neck sxs and facial erythema pending. * Pancytopenia: due to chemo. Will start G-CSF but unclear how well she will respond to that. - G-CSF - transfuse plts if <10,000, or if bleeding * CMML: C2D19 decitabine. Unclear that she can tolerate this regimen due to cytopenias. * Cardiomyopathy. 02/09/17 18:26 Subjective: S: A little better. Still odynophagia and fatigue. No bleeding. Left face, ear, neck discomfort. CTs pending. Daughter's partner, Damaris, present. O: VS reviewed. AF. Gen: Fatigued, but NAD. A&O, talkative. HEENT: no icterus. Mild erythema and some white exudate posterior palate. Mild erythema left cheek. Neck: mild left supraclavicular fullness. Lungs: CTA. CV: no sig edema. Abd: NT, ND. Skin: no petechiae. Neuro: grossly NF. Laboratory Tests 02/09/17 02/09/17 05:20 05:20 WBC 0.13 L* Hgb 7.1 L Plt Count 16 L* Creatinine 1.3 H Objective: Vital Signs Temp Pulse Resp BP Pulse Ox 36.7 C 109 H 20 125/68 H 97 02/09/17 15:20 02/09/17 15:20 02/09/17 15:20 02/09/17 15:20 02/09/17 15:20 Microbiology 02/09/17 10:00 Respiratory Panel (PCR) - Final Nasal, Sinus - Swab No Organism Detected Laboratory Results 02/09/17 05:20 02/09/17 05:20 02/08/17 02/09/17 02/10/17 05:59 05:59 05:59 Intake Total 300 3654 Output Total 200 500 Balance 100 3154 PT 17.0 SEC (12.0-15.0) H 02/07/17 18:15 INR 1.39 (0.83-1.16) H 02/07/17 18:15 ICD10 Worksheet Patient Problems: Problems Problem Status Onset Candidiasis Acute Cellulitis Acute Fever Acute CHF (congestive heart failure) Acute Dehydration Acute Elevated brain natriuretic peptide (BNP) level Acute Elevated serum creatinine Acute Weakness Acute
[2017-02-09] MEDS: FILGRASTIM-SNDZ 480 MCG/0.8 ML SYR SC SCH (19:30)
[2017-02-09] MEDS: AMITRIPTYLINE HCL 25 MG TAB PO SCH (20:54)
[2017-02-09] MEDS: ATORVASTATIN CALCIUM 20 MG TAB PO SCH (20:54)
[2017-02-09] MEDS: VANCOMYCIN HCL/NORMAL SALINE 250 ML IV SCH (20:56)
[2017-02-09] MEDS: NS 1,000 ML IV SCH (21:11)
[2017-02-10] MEDS: NS 1,000 ML IV SCH (03:28)
[2017-02-10] MEDS: HYDROmorphONE/DILAUDID 1 MG/ML INJ IVP PRN ×2 (03:30→15:32)
[2017-02-10 05:33] LABS: ADD MORPH? NO; ATYPICAL LYMPHOCYTE FLAG 10 (0-99); FRAGMENT RBC FLAG 0 (0-99); HEMATOCRIT 24.7 % (38.0-47.0); HEMOGLOBIN 7.9 g/dL (12.6-16.3); LIPEMIA HEMOLYSIS FLAG 80 (0-99); MEAN CELL HEMOGLOBIN 29.5 pg (27.9-34.1); MEAN CELL VOLUME 92.2 fL (81.5-99.8); MEAN PLATELET VOLUME 11.1 fL (8.7-11.7); PLATELET CLUMPS FLAG 0 (0-99); RED BLOOD CELL COUNT 2.68 10^6/uL (4.18-5.33); RED CELL DISTRIBUTION WIDTH 17.3 % (11.5-15.2)
[2017-02-10] MEDS: HYDROCORTISONE 100 MG/2 ML VIAL IVP SCH ×3 (05:45→21:01)
[2017-02-10 05:47] LABS: ADD SCAN? NO; PLATELET COUNT 19 10^3/uL (150-400)
[2017-02-10 05:52] LABS: ADD DIFF? NO
[2017-02-10 06:06] LABS: ALANINE AMINOTRANSFERASE 60 IU/L (9-52); ALBUMIN 2.7 g/dL (3.5-5.0); ALKALINE PHOSPHATASE 140 IU/L (38-126); ANION GAP 13 mEq/L (8-16); ASPARTATE AMINOTRANSFERASE 40 IU/L (14-46); BILIRUBIN,TOTAL 0.6 mg/dL (0.1-1.4); CALCIUM 7.7 mg/dL (8.5-10.4); CARBON DIOXIDE 21 mEq/l (22-31); CHLORIDE 111 mEq/L (97-110); GLOMERULAR FILTRATION RATE 54; GLUCOSE 121 mg/dL (70-100); POTASSIUM 3.8 mEq/L (3.5-5.2); SODIUM 145 mEq/L (134-144); TOTAL PROTEIN 5.2 g/dL (6.3-8.2)
[2017-02-10 06:26] LABS: PLATELET ESTIMATE DECREASED (ADEQ)
[2017-02-10] MEDS ORDERED: FUROSEMIDE 20 MG TAB PO SCH (07:30)
[2017-02-10] MEDS ORDERED: FUROSEMIDE 20 MG/2 ML VIAL IVP ONE (08:14)
--- NOTE | 2017-02-10 08:22 | HOSPPROG ---
Hospitalist Progress Note Assessment/Plan: Neutropenic fever - ANC this am 20. Potential sources are oropharyngeal candidiasis / pharyngitis vs left knee cellulitis. CXR clear, UA neg. CT neck / chest do not reveal an infectious source. No ellington or nuchal rigidity. Lactate nl. BCx's NGTD. Discussed case with ID. -Cont Meropenem, Vanc, Micafungin by ID -follow cultures Chronic systolic heart failure - Echo 1 week ago at [facility] showed EF 28% , mod RV dysfunction, severe MR, mod TR. She was dry on admission with elevated BUN/Cr. No e/o acute HF on CXR. Looks like her dry weight is around 77 kg, now 78.6 kg after IVF resuscitation. BNP elevated. -IV Lasix today -resume Entresto -monitor I&O's, daily weights VALE - suspect pre-renal, resolved with IVF's, Cr 1.3 --> 1.0. Dysphagia - likely secondary to candidiasis -viscous lidocaine prn -swallow eval -consider GI eval / EGD if not improving if Micafungin Elevated trop - likely strain in setting of acute infection, peaked 0.058, now trending down. CP free. -discussed echo with cards, no new WMA Tachycardia - pt reports her baseline HR is 110 and has been most of her adult life. She certainly has risk for PE, which could also cause fever. However, no pleuritic symptoms, CP or SOB. Just had contrast dye yesterday. -consider CTPA to r/o PE if tachycardia not resolving CML - Diagnosed 11/17/2016, followed by Dr. Navarro, on Dacogen chemotherapy. -appreciate onc assistance Pancytopenia - secondary to chemo. 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 -filgrastim given yesterday -no transfusion indicated at this time -trend cbc Adrenal insufficiency - cont stress dose steroids while acutely ill. -begin to wean hydrocortisone -resume oral prednisone 1-2 days Chronic hypoxemia - thought secondary to OHS, on baseline O2 requirement of [address] -add incentive spirometer LBBB - this is chronic, had recent echo 7 days ago. Code status - discussed with daughter, who is DPOA. Pt is DNR. DVT PPLX - Lovenox c/i due to low plts, SCD's Dispo - will require >48 hrs hospitalization for ongoing management of neutropenic fever. Transfer to when bed available. Subjective: Pt complains of bad throat pain, hard to swallow. No more fevers. No CP, SOB or pleuritic symptoms. Notes increased swelling of LE's. Not a lot of oral intake Objective: Vital Signs Temp Pulse Resp BP Pulse Ox 36.8 C 123 H 17 121/79 H 94 02/10/17 02:58 02/10/17 02:58 02/10/17 02:58 02/10/17 02:58 02/10/17 02:58 Microbiology 02/09/17 10:00 Respiratory Panel (PCR) - Final Nasal, Sinus - Swab No Organism Detected Laboratory Results 02/10/17 05:20 02/10/17 05:20 02/09/17 02/10/17 02/11/17 05:59 05:59 05:59 Intake Total 3654 1500 Output Total 500 830 Balance 3154 670 PT 17.0 SEC (12.0-15.0) H 02/07/17 18:15 INR 1.39 (0.83-1.16) H 02/07/17 18:15 - Physical Exam Constitutional: chronically ill appearing Eyes: PERRL Ears, Nose, Mouth, Throat: moist mucous membranes Cardiovascular: tachycardia Respiratory: no respiratory distress, other (bibasilar crackles, faint) Gastrointestinal: normoactive bowel sounds, soft, non-tender abdomen Skin: warm Musculoskeletal: other (1+ b/l LE edema) Neurologic: AAOx3 Psychiatric: interacting appropriately ICD10 Worksheet Patient Problems: Problems Problem Status Onset Candidiasis Acute Cellulitis Acute Fever Acute CHF (congestive heart failure) Acute Dehydration Acute Elevated brain natriuretic peptide (BNP) level Acute Elevated serum creatinine Acute Weakness Acute
[2017-02-10] MEDS: oxyCODONE IR 5 MG TAB PO PRN ×3 (08:35→22:56)
[2017-02-10] MEDS: VITAMIN B COMPLEX 1 EA CAP/TAB PO SCH (08:35)
[2017-02-10] MEDS: MICAFUNGIN NA 100 MG in NS 100 ML IV SCH (08:36)
[2017-02-10] MEDS: ALLOPURINOL 100 MG TAB PO SCH (08:36)
[2017-02-10] MEDS: FILGRASTIM-SNDZ 480 MCG/0.8 ML SYR SC SCH (08:37)
[2017-02-10] MEDS: FAMOTIDINE 20 MG/NACL 50 ML IV SCH ×2 (08:42→21:01)
[2017-02-10] MEDS: MEROPENEM 1 GM in NS 100 ML IV SCH ×2 (09:20→21:01)
--- NOTE | 2017-02-10 10:59 | PCMIDPN ---
Assessment/Plan: 1. Neutropenic fever: The fact that her CTs did not show any significant findings is reassuring. I am still bothered by her left facial pain, trismus and sore throat. Will ask ENT to see her today. The patient overall feels better since hospital admission. Will continue broad-spectrum antibiotics in the form of vancomycin, meropenem, levofloxacin, and Micafungin. Hopefully can start paring down antibiotics soon. Vanco trough tonight. 2. Dry cough: Starting to improve. Continue levofloxacin for atypical coverage, although CT scan did not show evidence of pneumonia. Will likely treat for 5 days with Levaquin, or 2 more days. Respiratory panel negative. Doubt Pneumocystis. 3. Left knee abrasion: Continue antibiotics and wound care. Lymphangitic streaking completely gone. 4. Oropharyngeal candidiasis: Continue Micafungin. Subjective: Reviewed CT findings (or lack thereof) with patient and her daughter Sayda today. Patient states that she feels better, but continues to have left-sided facial pain, difficulty opening her mouth, and sore throat. No diarrhea, nausea , vomiting or abdominal pain. Has pain along her left maxillary sinus. Objective: Vancomycin 1 g IV daily day 2 Micafungin 100 mg IV daily day 2 Meropenem 1 g IV q.12 hours day 1 (antibiotics day 3) Levaquin 500 mg IV daily day 3 Afebrile Vital Signs Temp Pulse Resp BP Pulse Ox 36.8 C 112 H 15 126/76 H 98 02/10/17 02:58 02/10/17 08:29 02/10/17 08:29 02/10/17 08:29 02/10/17 08:29 Microbiology 02/09/17 10:00 Respiratory Panel (PCR) - Final Nasal, Sinus - Swab No Organism Detected Laboratory Results 02/10/17 05:20 02/10/17 05:20 02/09/17 02/10/17 02/11/17 05:59 05:59 05:59 Intake Total 3654 1500 Output Total 500 830 Balance 3154 670 Urine Legionella antigen pending Blood cultures x2 negative Respiratory panel negative - Physical Exam General Appearance: no apparent distress, obese EENT: other (She is wearing dentures and their glued in. Unusual white plaques posterior OP that I cannot scrape off. No significant erythema. Tonsillar pillars look fine. Tenderness along the maxillary sinus.) Respiratory: lungs clear Neck: full range of motion Cardiac/Chest: other (Port right chest looks fine.) Abdomen: non-tender, soft Skin: other (Left knee eschar covered. No surrounding erythema or lymphangitic streaking.), No rash Neuro/Psych: oriented x 3 ICD10 Worksheet Patient Problems: Problems Problem Status Onset Candidiasis Acute Cellulitis Acute Fever Acute CHF (congestive heart failure) Acute Dehydration Acute Elevated brain natriuretic peptide (BNP) level Acute Elevated serum creatinine Acute Weakness Acute
[2017-02-10] MEDS: levOFLOXACIN 500 MG/DEXTROSE 100 ML IV SCH (12:11)
[2017-02-10] MEDS: SACUBITRIL/VALSARTAN 24/26MG 1 EA TAB PO SCH ×2 (13:26→21:00)
[2017-02-10] MEDS: ASPIRIN EC 81 MG TAB PO SCH (13:27)
[2017-02-10] MEDS: MULTIVITAMINS 1 EACH TAB PO SCH (13:27)
--- NOTE | 2017-02-10 14:40 | SOAPPROG ---
SOAP Progress Note Assessment/Plan: E&M for CMML * Neutropenic fever: currently afebril on broad-spectrum abx. ID following. Evaluation with CT of left facial/neck unremarkable. * Pancytopenia: due to chemo. Continue G-CSF; transfuse plts if <10,000, or if bleeding * CMML: C2 Day20 decitabine. She started recovering from last cycle about this time. Spoke with her and her daughter. Recommend discussing with DR. Navarro after discharge about whether to continue therapy. She has been hospitalized due to toxicity with both regimens Subjective: Throat still sore with facial pain. Trying to eat some lunch. Reports ENT stopped by and did not find anything worrisome. No mouth sores or bleeding. Objective: Vital Signs Temp Pulse Resp BP Pulse Ox 36.5 C 108 H 18 123/82 H 94 02/10/17 11:23 02/10/17 11:23 02/10/17 11:23 02/10/17 11:23 02/10/17 11:23 Microbiology 02/09/17 10:00 Respiratory Panel (PCR) - Final Nasal, Sinus - Swab No Organism Detected Laboratory Results 02/10/17 05:20 02/10/17 05:20 02/09/17 02/10/17 02/11/17 05:59 05:59 05:59 Intake Total 3654 1500 Output Total 500 830 Balance 3154 670 PT 17.0 SEC (12.0-15.0) H 02/07/17 18:15 INR 1.39 (0.83-1.16) H 02/07/17 18:15 Laboratory Tests 02/08/17 02/09/17 02/10/17 07:45 05:20 05:20 WBC 0.13 L* 0.13 L* 0.16 L* Hgb 8.0 L 7.1 L 7.9 L Plt Count 24 L* 16 L* 19 L* Absolute Neuts (auto) 0.03 L 0[address] of the Neck With Contrast 1747 hours Impression: 1. No evidence of mass or lymphadenopathy within the neck. 2. Incidental probable sebaceous cysts right anterior lower neck. 3. Nodularity associated with the right and left lobes of the thyroid probably related to multinodular goiter. If indicated, consider correlation with thyroid ultrasound. 4. Degenerative disk disease and facet hypertrophy involving the cervical spine. Dictated By: Clemente Bermeo MD Physical Exam - Physical Exam General Appearance: no apparent distress EENT: pharynx normal Respiratory: lungs clear Cardiac/Chest: tachycardia Skin: other (clean dressing left knee) ICD10 Worksheet Patient Problems: Problems Problem Status Onset Candidiasis Acute Cellulitis Acute Fever Acute CHF (congestive heart failure) Acute Dehydration Acute Elevated brain natriuretic peptide (BNP) level Acute Elevated serum creatinine Acute Weakness Acute
--- NOTE | 2017-02-10 14:54 | GCON ---
[f rep st] CONSULTATION EAR, NOSE, AND THROAT CONSULTATION CHIEF COMPLAINT: Left-sided sore throat. HISTORY OF PRESENT ILLNESS: The patient is a 76-year-old woman with a history of significant neutrop enia, with neutropenic fever, who has a history of CML, who is noted to have a right-sided sore throa t, which began roughly 3 or 4 days ago and, after about 48 hours, progressed to a left-sided sore thr oat. On evaluation today, she is describing a predominantly left-sided sore throat and left facial d iscomfort. She is able to swallow liquids and foods and is tolerating her intake without difficulty. She notes no complaints of reflux. She is not noting any significant rhinorrhea, but notes some di scomfort over the left cheek area. She notes no new nasal congestion or obstruction and has no visua l changes noted. There was a question of mild hoarseness from her daughter. The only other signific ant concern is that she does note some mild trismus also associated with that left-sided discomfort. PAST MEDICAL HISTORY: As above. PAST SURGICAL HISTORY: Noncontributory. MEDICATIONS: Please see the chart. Of note, the patient is already on multiple IV medications, incl uding multiple antibiotics, steroid, and antifungal therapies. ALLERGIES: Please see the chart. REVIEW OF SYSTEMS: Noncontributory. PHYSICAL EXAM: GENERAL: The patient is a 76-year-old woman, breathing comfortably, sitting up. Her voice appears intact, with no profound hoarseness, and she is not laboring with her breathing at all . She is on 2 L nasal cannula during the time of the evaluation. She is appropriate and able to dem onstrate excellent drinking of water for me. HEENT: Normal clear tympanic membranes. There is mild erythema in the middle turbinate mucosa bilaterally, a little worse on the left than the right. The re is no significant purulence or drainage noted in the nasal exam. Oral cavity and oropharyngeal ex am does reveal some mild debris along the posterior aspect of the soft palate, which could be fungal plaques and/or denture glue. They do not appear as bright-white as fungal plaques would usually appe ar and have more of a yellowish discoloration to them, and they appear to be stuck onto the mucous me mbrane in their appearance. There is no erythema or swelling around these findings. Palpation of th e floor of mouth reveals only very minimal tenderness of the submandibular gland on the left side, wi th no mass or lesions noted. She is localizing her discomfort to the lateral pharyngeal wall and pos terolateral tongue on the left side, which would be consistent with lymphoid inflammatory condition/p haryngitis of this area. NECK: Does not reveal any masses or significant tenderness, and there is n o tenderness overlying the TMJ on the left side. PROCEDURE: The patient has undergone fiberoptic laryngoscopy, which reveals normal laryngeal mobilit y and a normal airway space, with no erythema or edema noted. She does have mild bumps noted along t he left posterolateral pharyngeal booth, as well as mild erythema at the edge of the epiglottis, more on the left than the right. The remainder of her exam, again, reveals these mild plaquelike finding s in the base of the tongue and hypopharyngeal region, which again, may be retained food verus fungal plaques. Again, there appearance is more of a yellowish than a whitish discoloration, with no under lying erythema or swelling in these areas. There are maybe 3 of these noted in the pharyngeal and hy popharyngeal examination. IMAGING: The patient has undergone a CAT scan of the facial bones/sinuses, as well as the neck, whic h does not reveal any evidence of collection or an obvious source for her discomfort. IMPRESSION: The patient is a 76-year-old woman with likely a pharyngitis, which could be of viral or igin. It also could be a mild or resolving fungal issue, given its appearance. It by no means appea rs to be a rampant fungal event, as there is not a coating of this mucous membranes with the fungal c olonies, but more of an isolated plaque, if that is what these findings are to suggest. She is alrea dy on a strong antifungal therapy, which should help this. Regarding options in terms of making her feel more comfortable, we certainly could go with a high-hum idified face tent instead of nasal cannula, which might give her more moisture to the upper air or di gestive tract and make her feel more comfortable. Additionally, she could do an oral oqibi-ogt-xeyds ow or jiulv-olv-qrdo solution with Benadryl and/or lidocaine and/or a steroid, which might give her a little bit more relief. We could certainly ask the hospital pharmacy what lidocaine-based mouthwash es they have for this purpose. Should you have any questions regarding this patient, please do not hesitate to contact me. /[id number]/MODL
--- NOTE | 2017-02-10 16:06 | ASMTCMCOM ---
CM Note CM Note Notes: Reviewed chart re: d/c poc, pt's progress. Pt w/ neutropenic fever, pancytopenia, CMML. Pt's discharge needs remain TBD at this time. PT/ST evals pending. Pt has supportive family. CM will cont to follow. Date Signed: 02/10/2017 04:05 PM Electronically Signed By:Jenni Thomas RN
[2017-02-10] MEDS: CHOLECALCIFEROL VIT D3 1,000 UNITS TAB PO SCH (18:24)
[2017-02-10] MEDS: AMITRIPTYLINE HCL 25 MG TAB PO SCH (21:00)
[2017-02-10] MEDS: ATORVASTATIN CALCIUM 20 MG TAB PO SCH (21:00)
[2017-02-10] MEDS: VANCOMYCIN HCL/NORMAL SALINE 250 ML IV SCH (23:30)
[2017-02-11] MEDS: HYDROCORTISONE 100 MG/2 ML VIAL IVP SCH ×3 (05:09→21:14)
[2017-02-11 05:34] LABS: ADD MORPH? NO; ATYPICAL LYMPHOCYTE FLAG 40 (0-99); FRAGMENT RBC FLAG 0 (0-99); HEMATOCRIT 26.4 % (38.0-47.0); HEMOGLOBIN 8.2 g/dL (12.6-16.3); LEFT SHIFT FLG 40 (0-99); LIPEMIA HEMOLYSIS FLAG 80 (0-99); MEAN CELL HEMOGLOBIN 28.8 pg (27.9-34.1); MEAN CELL HEMOGLOBIN CONCENTR. 31.1 g/dL (32.4-36.7); MEAN CELL VOLUME 92.6 fL (81.5-99.8); MEAN PLATELET VOLUME 9.9 fL (8.7-11.7); PLATELET CLUMPS FLAG 10 (0-99); RED BLOOD CELL COUNT 2.85 10^6/uL (4.18-5.33); RED CELL DISTRIBUTION WIDTH 17.6 % (11.5-15.2)
[2017-02-11 05:57] LABS: ALANINE AMINOTRANSFERASE 47 IU/L (9-52); ALBUMIN 2.7 g/dL (3.5-5.0); ALKALINE PHOSPHATASE 125 IU/L (38-126); ANION GAP 12 mEq/L (8-16); ASPARTATE AMINOTRANSFERASE 24 IU/L (14-46); BILIRUBIN,TOTAL 0.6 mg/dL (0.1-1.4); CALCIUM 8.1 mg/dL (8.5-10.4); CARBON DIOXIDE 24 mEq/l (22-31); CHLORIDE 111 mEq/L (97-110); CREATININE 0.9 mg/dL (0.6-1.0); GLOMERULAR FILTRATION RATE > 60; GLUCOSE 145 mg/dL (70-100); POTASSIUM 3.6 mEq/L (3.5-5.2); SODIUM 147 mEq/L (134-144); TOTAL PROTEIN 5.2 g/dL (6.3-8.2)
[2017-02-11 06:10] LABS: ADD SCAN? NO; PLATELET COUNT 23 10^3/uL (150-400)
[2017-02-11 06:19] LABS: ADD DIFF? NO
[2017-02-11 06:43] LABS: PLATELET ESTIMATE DECREASED (ADEQ)
[2017-02-11] MEDS: ALLOPURINOL 100 MG TAB PO SCH (08:44)
[2017-02-11] MEDS: VITAMIN B COMPLEX 1 EA CAP/TAB PO SCH (08:44)
[2017-02-11] MEDS: FAMOTIDINE 20 MG/NACL 50 ML IV SCH ×2 (08:44→21:25)
[2017-02-11] MEDS: SACUBITRIL/VALSARTAN 24/26MG 1 EA TAB PO SCH ×2 (08:44→21:25)
[2017-02-11] MEDS: FILGRASTIM-SNDZ 480 MCG/0.8 ML SYR SC SCH (09:04)
[2017-02-11] MEDS: MICAFUNGIN NA 100 MG in NS 100 ML IV SCH (09:18)
[2017-02-11] MEDS: MEROPENEM 1 GM in NS 100 ML IV SCH ×2 (10:25→21:24)
--- NOTE | 2017-02-11 11:05 | PCMIDPN ---
Assessment/Plan: 1. Neutropenic fever: Getting better each day. Still has some discomfort along the left maxillary sinus ridge and mild sore throat, but CT scans of these areas were negative. Appreciate ear nose and throat opinion. Total white blood cells are starting to come up, but neutrophil count remains unchanged. Given absence of resistant gram positives, will stop Vancomycin. Will likely stop levofloxacin tomorrow as well. Please see below. Continue meropenem and Micafungin. 2. Dry cough: Much better. CT of the chest unrevealing. Legionella urine antigen still pending, respiratory PCR negative. Will continue Levaquin 1 more day to complete 5 days of therapy and then stop if she continues to improve. 3. Left knee abrasion: Continue antibiotics and wound care. Lymphangitic streaking completely gone. 4. Oropharyngeal candidiasis: Continue Micafungin. 5. New posterior oropharyngeal ulcerations: VZV and HSV PCR sent today. 02/11/17 11:00 Subjective: Feels better today. Sore throat still present, but diminished. Dry cough much better. Says that she is able to open her mouth without discomfort. No diarrhea. No nausea or vomiting. Energy has also improved. Objective: Vancomycin 1 g IV daily day 3 Levaquin 500 mg IV daily day 4 Meropenem 1 g IV q.12 hours day 2 (antibiotics day 4) Micafungin 100 mg IV daily day 3 Afebrile Vital Signs Temp Pulse Resp BP Pulse Ox 36.4 C 123 H 16 121/73 H 92 02/11/17 08:20 02/11/17 08:20 02/11/17 08:20 02/11/17 08:20 02/11/17 08:20 Laboratory Results 02/11/17 05:10 02/11/17 05:10 02/10/17 02/11/17 02/12/17 05:59 05:59 05:59 Intake Total 1500 320 Output Total 830 1050 Balance 670 -730 No new microbiology data - Physical Exam General Appearance: no apparent distress, obese EENT: other (2 new small ulcerations in posterior oropharynx, none under her tongue or buccal mucosa. Stuck-on white plaques posterior oropharynx unchanged. Nothing on her tongue or buccal mucosa. False teeth. Still has some mild tenderness along left maxillary ridge. No obvious overlying skin abnormality.) Respiratory: lungs clear Cardiac/Chest: tachycardia, other (Port right upper chest without tenderness or erythema.), No systolic murmur Abdomen: non-tender, soft Skin: other (Large eschar left knee stable, no surrounding erythema or lymphangitic streaking.), No rash ICD10 Worksheet Patient Problems: Problems Problem Status Onset Candidiasis Acute Cellulitis Acute Fever Acute CHF (congestive heart failure) Acute Dehydration Acute Elevated brain natriuretic peptide (BNP) level Acute Elevated serum creatinine Acute Weakness Acute
--- NOTE | 2017-02-11 11:22 | SOAPPROG ---
SOAP Progress Note Assessment/Plan: E&M for CMML * Neutropenic fever: currently afebrile on broad-spectrum abx; ID stopping vanc. ID following and discussed with DR. Angeles. Evaluation with CT of left facial/neck unremarkable. * Pancytopenia due to chemo and underlying disease: Counts a little better today. Continue G-CSF; transfuse plts if <10,000, or if bleeding. No need for txn today. * CMML: C2 Day21 decitabine. She started recovering from last cycle about this time. Recommend discussing with DR. Navarro after discharge about whether to continue therapy. She has been hospitalized due to toxicity with both cycles. Subjective: Feeling a little better although now with sores in back of her throat. Face pain a little better. Cough comes and goes. Objective: Vital Signs Temp Pulse Resp BP Pulse Ox 36.4 C 123 H 16 121/73 H 92 02/11/17 08:20 02/11/17 08:20 02/11/17 08:20 02/11/17 08:20 02/11/17 08:20 Laboratory Results 02/11/17 05:10 02/11/17 05:10 02/10/17 02/11/17 02/12/17 05:59 05:59 05:59 Intake Total 1500 320 Output Total 830 1050 Balance 670 -730 PT 17.0 SEC (12.0-15.0) H 02/07/17 18:15 INR 1.39 (0.83-1.16) H 02/07/17 18:15 Laboratory Tests 02/09/17 02/10/17 02/11/17 05:20 05:20 05:10 WBC 0.16 L* 0.30 L* Hgb 7.1 L 7.9 L 8.2 L Plt Count 16 L* 19 L* 23 L* Physical Exam - Physical Exam General Appearance: no apparent distress EENT: other (ulcers back of throat) Respiratory: lungs clear Cardiac/Chest: edema (trace), tachycardia Abdomen: soft ICD10 Worksheet Patient Problems: Problems Problem Status Onset Candidiasis Acute Cellulitis Acute Fever Acute CHF (congestive heart failure) Acute Dehydration Acute Elevated brain natriuretic peptide (BNP) level Acute Elevated serum creatinine Acute Weakness Acute
[2017-02-11] MEDS: levOFLOXACIN 500 MG/DEXTROSE 100 ML IV SCH (11:36)
[2017-02-11] MEDS: MULTIVITAMINS 1 EACH TAB PO SCH (11:39)
[2017-02-11] MEDS: ASPIRIN EC 81 MG TAB PO SCH (11:40)
[2017-02-11] MEDS: oxyCODONE IR 5 MG TAB PO PRN ×2 (12:56→18:45)
--- NOTE | 2017-02-11 15:21 | HOSPPROG ---
Hospitalist Progress Note Assessment/Plan: Neutropenic fever - ANC this am 20. Potential sources are left knee cellulitis vs oropharyngeal candidiasis / pharyngitis, ?HSV lesions in posterior oropharynx. CXR clear, UA neg. CT neck / chest did not reveal an infectious source. No schmitt or nuchal rigidity. Lactate nl. BCx's NGTD. Discussed case with ID. -Cont Meropenem, Micafungin. Vanc dc'd -follow cultures Chronic systolic heart failure - Echo 1 week ago at [facility]- EF 28%, mod RV dysfunction, severe MR, mod TR. Dry on admission, required IVF resuscitation. Received IV Lasix yesterday, still with LE edema. -oral Lasix today -resumed Entresto yesterday -monitor I&O's, daily weights Dysphagia / pharyngitis - ? secondary to candidiasis. Also consider HSV with oral lesions, viral studies pending. Appreciate ENT consult. -cont viscous lidocaine for pain -humidified face mask -consider GI eval / EGD if not improving with Micafungin Elevated trop - likely strain in setting of acute infection, peaked 0.058, now trending down. CP free. -discussed echo with cards, no new WMA CML - Diagnosed 11/17/2016, followed by Dr. Navarro, on Dacogen chemotherapy. -appreciate onc assistance Pancytopenia - secondary to chemo. Recently transfused 2u PRBC's and 1 u platelets LAV CREWMAN. -started on filgrastim -no transfusion indicated at this time -trend cbc Adrenal insufficiency - received stress dose steroids with severity of illness on presentation -weaning hydrocortisone, last dose tomorrow AM, MAR adjusted -home oral prednisone dose of 5 mg daily ordered to resume 02/13 Chronic hypoxemia - thought secondary to OHS, on baseline O2 requirement of 2 LPM LBBB - this is chronic, had recent echo 7 days ago. Code status - discussed with daughter, who is DPOA. Pt is DNR. DVT PPLX - Lovenox c/i due to low plts, SCD's Dispo - cont inpt, attempting to transfer to / cancer care daily, but no beds Subjective: Had severe headache last night after receiving IV dilaudid, which is now d/c'd. CT head done was negative. SCHMITT now resolved. Continues to have throat pain and pain with swallowing, but it's a little better. No fevers. No CP or SOB. No pleuritic symptoms. Still complains of LE swelling. Objective: Vital Signs Temp Pulse Resp BP Pulse Ox 36.2 C 94 18 127/83 H 80 L 02/11/17 10:55 02/11/17 10:55 02/11/17 10:55 02/11/17 10:55 02/11/17 10:55 Laboratory Results 02/11/17 05:10 02/11/17 05:10 02/10/17 02/11/17 02/12/17 05:59 05:59 05:59 Intake Total 1500 320 Output Total 830 1050 Balance 670 -730 PT 17.0 SEC (12.0-15.0) H 02/07/17 18:15 INR 1.39 (0.83-1.16) H 02/07/17 18:15 - Physical Exam Constitutional: chronically ill appearing Eyes: PERRL Ears, Nose, Mouth, Throat: dry mucous membranes, other (posterior op with white plaques, a bit better today) Cardiovascular: regular rate and rhythym, no murmur, rub, or gallop Respiratory: no respiratory distress, clear to auscultation Gastrointestinal: normoactive bowel sounds, soft, non-tender abdomen Skin: warm Musculoskeletal: other (1+ b/l LE pitting edema. RLE knee wound examined, damp eschar surrounded by ecchymosis, no purulence or spreading erythema) Neurologic: AAOx3 Psychiatric: interacting appropriately ICD10 Worksheet Patient Problems: Problems Problem Status Onset Candidiasis Acute Cellulitis Acute Fever Acute CHF (congestive heart failure) Acute Dehydration Acute Elevated brain natriuretic peptide (BNP) level Acute Elevated serum creatinine Acute Weakness Acute
[2017-02-11] MEDS ORDERED: FUROSEMIDE 20 MG TAB PO ONE (15:33)
[2017-02-11] MEDS: CHOLECALCIFEROL VIT D3 1,000 UNITS TAB PO SCH (16:22)
[2017-02-11] MEDS: ACETAMINOPHEN 650 MG SUPP PR PRN (21:00)
[2017-02-11] MEDS ORDERED: ACETAMINOPHEN 325 MG TAB ONE (21:09)
[2017-02-11] MEDS: ATORVASTATIN CALCIUM 20 MG TAB PO SCH (21:25)
[2017-02-11] MEDS: AMITRIPTYLINE HCL 25 MG TAB PO SCH (21:25)
[2017-02-12 06:19] LABS: ADD MORPH? NO; ADD SCAN? NO; ATYPICAL LYMPHOCYTE FLAG 40 (0-99); FRAGMENT RBC FLAG 0 (0-99); HEMOGLOBIN 8.5 g/dL (12.6-16.3); LEFT SHIFT FLG 60 (0-99); LIPEMIA HEMOLYSIS FLAG 80 (0-99); MEAN CELL HEMOGLOBIN 28.3 pg (27.9-34.1); MEAN CELL HEMOGLOBIN CONCENTR. 30.4 g/dL (32.4-36.7); MEAN CELL VOLUME 93.3 fL (81.5-99.8); MEAN PLATELET VOLUME 10.1 fL (8.7-11.7); PLATELET CLUMPS FLAG 10 (0-99); RED CELL DISTRIBUTION WIDTH 17.7 % (11.5-15.2)
[2017-02-12 06:24] LABS: PLATELET COUNT 24 10^3/uL (150-400)
[2017-02-12 06:26] LABS: % IMMATURE GRANULYOCYTES 4.3 % (0.0-1.1); ABSOLUTE IMMATURE GRANULOCYTES 0.02 10^3/uL (0.00-0.10); ADD DIFF? NO
[2017-02-12 06:45] LABS: PLATELET ESTIMATE DECREASED (ADEQ)
[2017-02-12] MEDS: oxyCODONE IR 5 MG TAB PO PRN (08:35)
[2017-02-12] MEDS: ALLOPURINOL 100 MG TAB PO SCH (08:36)
[2017-02-12] MEDS: FAMOTIDINE 20 MG/NACL 50 ML IV SCH ×2 (08:37→22:16)
[2017-02-12] MEDS: MICAFUNGIN NA 100 MG in NS 100 ML IV SCH (08:53)
[2017-02-12] MEDS: levOFLOXACIN 500 MG/DEXTROSE 100 ML IV SCH (09:55)
[2017-02-12] MEDS: FILGRASTIM-SNDZ 480 MCG/0.8 ML SYR SC SCH (10:51)
[2017-02-12] MEDS: SACUBITRIL/VALSARTAN 24/26MG 1 EA TAB PO SCH ×2 (10:51→22:13)
[2017-02-12] MEDS: HYDROCORTISONE 100 MG/2 ML VIAL IVP SCH (10:53)
[2017-02-12] MEDS: VITAMIN B COMPLEX 1 EA CAP/TAB PO SCH (10:53)
[2017-02-12] MEDS: MEROPENEM 1 GM in NS 100 ML IV SCH ×2 (11:10→22:15)
--- NOTE | 2017-02-12 11:31 | ASMTCMCOM ---
CM Note CM Note Notes: Chart reviewed, discussed patient status with nurse. Met with patient's daughter Sayda who reports mom lives independent in a senior housing complex in [place]. Sayda spends 80 percent of her time with the patient and has a partner and friends who also give support. Pt has experienced a recent fall, she has recieved chemo for about 2 mos. The patient is somulent during my visit. She has a severe case of thrush and had been medicated for pain. She has had a positive experience at [facility] in the past as well as [facility] services. Her dc needs are still TBD at this time. CM to follow. Date Signed: 02/12/2017 11:31 AM Electronically Signed By:Amber Davey RN
[2017-02-12] MEDS: ASPIRIN EC 81 MG TAB PO SCH (12:08)
[2017-02-12] MEDS: MULTIVITAMINS 1 EACH TAB PO SCH (12:08)
--- NOTE | 2017-02-12 15:06 | WOCRNPDOC ---
WOCRN Advanced Assessment Note - Skin Integrity Problem, Advanced Assess Left Knee Abrasion Dressing Type: Allevyn Life Dressing Description: Intact Exudate Amount: Minimal Exudate Color: Reddish/Yellow Exudate Characteristic(s): Serosanguinous Integumentary Issue Intervention: Visualized Under Dressing Anisha Wound Tissue: Swollen, Intact, Painful/Tender Anisha Wound Swelling: Mild Wound Bed Color: Black Wound Bed Constitution: Mixed Loose & Adhered Slough/Eschar Site Odor: None Site Measurement - Head-to-Toe Length X Width X Depth (cm): [id number] eschar Skin Integrity Problem Comment: Wound on R knee remains eschar-filled despite tx w/ wound gel to soften necrotic tissue. Anisha-wound skin remains mildly swollen, but intact. Of note is that patient was exquisitely tender during assessment today. Per re examinerMIGUEL Rodriguez, she has c/o of generalized pain all day , so I don't think this represents any significant change in this wound. Will initiate dressing order using a hydrocolloid dressing and wound gel, which should stimulate autolysis of the eschar. Supplies sent down to re examinerMIGUEL Rodriguez, and wound care will follow up with patient on or Sunday.
--- NOTE | 2017-02-12 15:17 | SOAPPROG ---
SOAP Progress Note Assessment/Plan: Assessment: 1.) CMML- on Decitabine Cycle 2, Day 21 noted. Markedly pancytopenic Has been placed on G-CSF SQ QD, which can take time to respond to Tx, especially with compromised normal Myeloid precursors in marrow. Consider RBC transfusion for Hgb < 7.5 and PLT for PLT count < 15 or if bleeding ensues. 2.) Continue Meropenem and Micafungin. I wonder if antiviral Tx is warranted , given palate appearance 3.) Continue analgesics 4.) Consider Speech Therapy for swallowing evaluation. 5.) Both allopurinol and colchicine can suppress the marrow. Consider if either or both could be discontinued. 6.) Will follow. Plan: See above discussion. 02/12/17 15:17 Subjective: Still with marked pharyngitis with dyphagia. Feels poorly and has pain relief with analgesia, but quite a bit of sedation with analgesics. No fever, chills, emesis, diarrhea. Objective: VSS, afebrile as noted here. sitting in bedside lounge chair. Family at bedside. Sedated, but easily aroused. Looks uncomfortable. HEENT- pale, anicteric, post pharynx and palate on Left looks like shallow ulceration present. Neck- painful to touch on L Chest- upper airway rhonchi noted CVS- Distant HS, RR, no extra HS ABD- BS+, soft, NT EXT- Left Knee bandaged. Surrounding erythema noted. Vital Signs Temp Pulse Resp BP Pulse Ox 36.6 C 14 L 14 134/86 H 93 02/12/17 11:27 02/12/17 11:27 02/12/17 11:27 02/12/17 11:27 02/12/17 11:27 Laboratory Results 02/12/17 06:10 02/11/17 05:10 02/11/17 02/12/17 02/13/17 05:59 05:59 05:59 Intake Total 320 200 Output Total 1050 1300 Balance -730 -1100 PT 17.0 SEC (12.0-15.0) H 02/07/17 18:15 INR 1.39 (0.83-1.16) H 02/07/17 18:15 ICD10 Worksheet Patient Problems: Problems Problem Status Onset Candidiasis Acute Cellulitis Acute Fever Acute CHF (congestive heart failure) Acute Dehydration Acute Elevated brain natriuretic peptide (BNP) level Acute Elevated serum creatinine Acute Weakness Acute
--- NOTE | 2017-02-12 15:35 | HOSPPROG ---
Hospitalist Progress Note Assessment/Plan: # Neutropenic fever - ANC this am 20. No fever since 02/08 Potential sources are left knee cellulitis vs oropharyngeal candidiasis / pharyngitis, ?HSV lesions in posterior oropharynx. CXR (personally reviewed and interpreted) clear, UA neg. CT neck / chest did not reveal an infectious source BCx's NGTD. oxygen saturations 93% on 5L -Cont Meropenem, Micafungin. Vanc dc'd - dc levofloxacin today -follow cultures # Chronic systolic heart failure - Echo 1 week ago at [facility]- EF 28%, mod RV dysfunction, severe MR, mod TR. Dry on admission, required IVF resuscitation. Received IV Lasix early in admit with minimal LE edema - creatinine stable 0.9 - continue oral Lasix -resumed Entresto yesterday -monitor I&O's, daily weights # Dysphagia / pharyngitis - ? secondary to candidiasis. Also consider HSV with oral lesions, viral studies pending. Appreciate ENT consult. -cont viscous lidocaine for pain -humidified face mask -consider GI eval / EGD if not improving with Micafungin #Elevated trop - likely strain in setting of acute infection, peaked 0.058, now trending down. CP free. 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 Navarro, on Dacogen chemotherapy. -appreciate onc assistance # Pancytopenia - secondary to chemo. Recently transfused 2u PRBC's and 1 u platelets [employer]. -continue filgrastim -no transfusion indicated today -trend cbc # Adrenal insufficiency - received stress dose steroids with severity of illness on presentation -weaning hydrocortisone, last dose tomorrow AM, MAR adjusted -home oral prednisone dose of 5 mg daily ordered to resume 02/13 # Chronic hypoxemia - thought secondary to OHS, baseline O2 requirement of 2 LPM # LBBB - this is chronic, had recent echo 7 days ago. # Code status - discussed with daughter, who is DPOA. Pt is DNR. # DVT PPLX - Lovenox c/i due to low plts, SCD's Dispo - cont inpt, attempting to transfer to / cancer care daily, but no beds I have discussed the case with ID - we will discontinue Levofloxacin today and continue micafungin and meropenem Subjective: didnt sleep well overnight Objective: Vital Signs Temp Pulse Resp BP Pulse Ox 36.6 C 14 L 14 134/86 H 93 02/12/17 11:27 02/12/17 11:27 02/12/17 11:27 02/12/17 11:27 02/12/17 11:27 Laboratory Results 02/12/17 06:10 02/11/17 05:10 02/11/17 02/12/17 02/13/17 05:59 05:59 05:59 Intake Total 320 200 Output Total 1050 1300 Balance -730 -1100 PT 17.0 SEC (12.0-15.0) H 02/07/17 18:15 INR 1.39 (0.83-1.16) H 02/07/17 18:15 - Physical Exam Constitutional: obese Eyes: anicteric sclera Ears, Nose, Mouth, Throat: moist mucous membranes Cardiovascular: regular rate and rhythym Respiratory: no respiratory distress Gastrointestinal: normoactive bowel sounds Genitourinary: no bladder fullness Skin: warm, normal color Musculoskeletal: No asymmetric calves Neurologic: No AAOx3 Psychiatric: other (somnolent) Lymph, Heme, Immunologic: no cervical LAD ICD10 Worksheet Patient Problems: Problems Problem Status Onset Candidiasis Acute Cellulitis Acute Fever Acute CHF (congestive heart failure) Acute Dehydration Acute Elevated brain natriuretic peptide (BNP) level Acute Elevated serum creatinine Acute Weakness Acute
[2017-02-12] MEDS: HYDROCODONE/APAP 5/325 TAB PO PRN (15:55)
[2017-02-12] MEDS: CHOLECALCIFEROL VIT D3 1,000 UNITS TAB PO SCH (18:50)
[2017-02-12] MEDS: AMITRIPTYLINE HCL 25 MG TAB PO SCH (22:16)
[2017-02-12] MEDS: ATORVASTATIN CALCIUM 20 MG TAB PO SCH (22:16)
[2017-02-12] MEDS: LIDOCAINE 2% VISCOUS 15 ML UDCUP PO PRN (22:16)
[2017-02-13] MEDS: HYDROCODONE/APAP 5/325 TAB PO PRN ×2 (01:09→08:27)
[2017-02-13 04:59] LABS: HEMATOCRIT 28.8 % (38.0-47.0); LIPEMIA HEMOLYSIS FLAG 80 (0-99); MEAN CELL HEMOGLOBIN CONCENTR. 31.3 g/dL (32.4-36.7); MEAN CELL VOLUME 92.9 fL (81.5-99.8); PLATELET CLUMPS FLAG 10 (0-99); RED CELL DISTRIBUTION WIDTH 17.6 % (11.5-15.2)
[2017-02-13 05:02] LABS: PLATELET COUNT 26 10^3/uL (150-400)
[2017-02-13 05:29] LABS: PLATELET ESTIMATE DECREASED (ADEQ)
[2017-02-13] MEDS: predniSONE 5 MG TAB PO SCH (08:27)
[2017-02-13] MEDS: SACUBITRIL/VALSARTAN 24/26MG 1 EA TAB PO SCH ×2 (08:29→21:07)
[2017-02-13] MEDS: VITAMIN B COMPLEX 1 EA CAP/TAB PO SCH (08:29)
[2017-02-13] MEDS: ALLOPURINOL 100 MG TAB PO SCH (08:30)
[2017-02-13] MEDS: MEROPENEM 1 GM in NS 100 ML IV SCH ×3 (08:30→22:07)
[2017-02-13] MEDS: FILGRASTIM-SNDZ 480 MCG/0.8 ML SYR SC SCH (08:30)
[2017-02-13] MEDS: MICAFUNGIN NA 100 MG in NS 100 ML IV SCH (10:05)
--- NOTE | 2017-02-13 10:13 | HOSPPROG ---
Hospitalist Progress Note Assessment/Plan: # Neutropenic fever - ANC remains 20. No fever since 02/08 Potential sources are left knee cellulitis vs oropharyngeal candidiasis / pharyngitis, ?HSV lesions in posterior oropharynx. CXR - clear, UA neg. CT neck / chest (personally reviewed and interpreted) did not reveal an infectious source BCx's remain NGTD. oxygen saturations 99% on 4L -Cont Meropenem, Micafungin. Vanc dc'd -dc'd levofloxacin 02/12 -follow cultures # Sinus tachycardia - suspect multifactorial - coreg has been on hold and pt appear dry on exam - - cont hold lasix - restart coreg - give small NS bolus as PO has been poor # Chronic systolic heart failure - Echo 1 week ago at [facility]- EF 28%, mod RV dysfunction, severe MR, mod TR. Dry on admission, required IVF resuscitation. Received IV Lasix early in admit with minimal LE edema - creatinine stable 0.9 - continue oral Lasix -resumed Entresto yesterday -monitor I&O's, daily weights # Dysphagia / pharyngitis - ? secondary to candidiasis. Also consider HSV with oral lesions, viral studies pending. Appreciate ENT consult. -cont viscous lidocaine for pain -humidified face mask -consider GI eval / EGD if not improving with Micafungin -decreased pain med from oxy 10mg -> norco with much less somnolence # Elevated trop - likely strain in setting of acute infection, peaked 0.058, now trending down. CP free. 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 Navarro, on Dacogen chemotherapy- counts remain low -appreciate onc assistance # Pancytopenia - secondary to chemo. Recently transfused 2u PRBC's and 1 u platelets - last transfused 02/07/17 -continue filgrastim -no transfusion indicated today -follow cbc # Adrenal insufficiency - received stress dose steroids with severity of illness on presentation -weaned off hydrocortisone -home oral prednisone dose of 5 mg daily ordered to resume 02/13 # Chronic hypoxemia - thought secondary to OHS, baseline O2 requirement of 2 LPM # LBBB - this is chronic, had recent echo 7 days ago. # Code status - discussed with daughter, who is DPOA. Pt is DNR. # DVT PPLX - Lovenox c/i due to low plts, SCD's Dispo - cont inpt, attempting to transfer to / cancer care daily, but no beds I have discussed the case with RN - will work on milkshakes today for caloric intake as the consistency and cold sound appealing Subjective: feeling a bit better today - less somnolent Objective: Vital Signs Temp Pulse Resp BP Pulse Ox 36.3 C 120 H 18 118/64 96 02/13/17 08:04 02/13/17 08:04 02/13/17 08:04 02/13/17 08:29 02/13/17 08:04 Laboratory Results 02/13/17 04:45 02/11/17 05:10 02/12/17 02/13/17 02/14/17 05:59 05:59 05:59 Intake Total 200 325 Output Total 1300 1100 Balance -1100 -775 PT 17.0 SEC (12.0-15.0) H 02/07/17 18:15 INR 1.39 (0.83-1.16) H 02/07/17 18:15 - Physical Exam Constitutional: chronically ill appearing Eyes: anicteric sclera Ears, Nose, Mouth, Throat: dry mucous membranes Cardiovascular: regular rate and rhythym, tachycardia Respiratory: no respiratory distress, No expiratory wheeze, No inspiratory crackles Gastrointestinal: normoactive bowel sounds Genitourinary: no bladder fullness Skin: normal color Musculoskeletal: No asymmetric calves Neurologic: AAOx3 Psychiatric: interacting appropriately Lymph, Heme, Immunologic: No petechiae ICD10 Worksheet Patient Problems: Problems Problem Status Onset Candidiasis Acute Cellulitis Acute Fever Acute CHF (congestive heart failure) Acute Dehydration Acute Elevated brain natriuretic peptide (BNP) level Acute Elevated serum creatinine Acute Weakness Acute
--- NOTE | 2017-02-13 10:20 | PCMIDPN ---
Assessment/Plan: Assessment/Plan: 1. Neutrapenic fever: - fever curve has improved over last several days. - Counts still low but slighlty improving each day.no ANC today reported - Currently on empiric Merem. CrCL improved. Will change merem to q8 dosing - s/p vanco, levaquin -continue to follow 2. Oral ulcers: - called lab. still may take another 2 days to get back HsV/VZV studies - given painful swallowing, poor PO intake past two days, favor starting empiric IV acyclovir - will have her on gentle IVF hydration as well -discussed plan with daughter and RN, - care coordinated with pharmacy -care coordinated with hospitalist team. 3. Oral candidiasis: -improved - on micafungin. 4. Left knee abrasion: - less erythema surrounding per daughter - necrotic area overlying. - wound care with close monitoring. 5. Dry cough: - s/p levquin x 5 days. - U. legionella negative. -resp pcr panel negative. Subjective: afebrile. O2 viz nc at 4L. denies feeling short of breath. mild dry cough but improving. c/o throat pain. per RN, visible painful to swallow pills. not eating much past two days. no diarrhea. no abd pain at present. still with pain involving her left knee. redness has improved around her wound per daughter. seen with Rn. daughter at bedside. Objective: Vital Signs Temp Pulse Resp BP Pulse Ox 36.3 C 120 H 18 118/64 96 02/13/17 08:04 02/13/17 08:04 02/13/17 08:04 02/13/17 08:29 02/13/17 08:04 Laboratory Results 02/13/17 04:45 02/11/17 05:10 02/12/17 02/13/17 02/14/17 05:59 05:59 05:59 Intake Total 200 325 Output Total 1300 1100 Balance -1100 -775 - Physical Exam General Appearance: alert, no apparent distress EENT: other (two moderate size posterior pharyngeal ulcers noted, with four veyr tiny ulcer just above uvula. several small ulcers noted on left buccal mucosa area. ) Respiratory: coarse breath sounds (mild) Cardiac/Chest: regular rate, rhythm Extremities: other (left knee: induraion noted above knee, wiht moderate sized necrotic ulcer noted below patella. tender. not raely much erythema around area. but tender to mild touch.), No pedal edema Abdomen: normal bowel sounds, non-tender, soft, No distended Skin: other (see above. no rash) - Time Spent With Patient Time Spent with Patient: greater than 35 minutes Time Spent with Patient: Greater than 35 minutes spent on this patients care, greater than 50% of time spent counseling, educating, and coordinating care regarding the above mentioned plan. ICD10 Worksheet Patient Problems: Problems Problem Status Onset Candidiasis Acute Cellulitis Acute Fever Acute CHF (congestive heart failure) Acute Dehydration Acute Elevated brain natriuretic peptide (BNP) level Acute Elevated serum creatinine Acute Weakness Acute
[2017-02-13] MEDS ORDERED: NS 500 ML IV ONE (10:39)
[2017-02-13] MEDS: FAMOTIDINE 20 MG/NACL 50 ML IV SCH ×2 (11:49→21:07)
[2017-02-13] MEDS: LIDOCAINE 2% VISCOUS 15 ML UDCUP PO PRN (11:56)
[2017-02-13] MEDS: D5W IV SCH ×2 (12:19→19:16)
[2017-02-13] MEDS: ACYCLOVIR IV SCH ×2 (12:19→19:16)
--- NOTE | 2017-02-13 12:23 | SOAPPROG ---
SOAP Progress Note Assessment/Plan: Assessment: 1.) CMML- on Decitabine Cycle 2, Day 22 noted. Markedly pancytopenic Has been placed on G-CSF SQ QD, which can take time to respond to Tx, especially with compromised normal Myeloid precursors in marrow. Consider RBC transfusion for Hgb < 7.5 and PLT for PLT count < 15 or if bleeding ensues. 2.) Continue Meropenem and Micafungin. Appreciate ID input. IV acyclovir being added today. 3.) Continue analgesics 4.) Speech Therapy input noted. Pt swallowing meds well with RN supervision. Consider NPO except oral meds with RN supervision. 5.) Both allopurinol and colchicine can suppress the marrow. Consider if either or both could be discontinued. 6.) Would avoid TPN and not a candidate for placement of NGT given her degree of pharyngitis sx.. Plan: See above discussion. 02/13/17 12:23 Subjective: Pt currently sedated from recent IV morphine but apparently has had significant pharyngitis sx. Family member at bedside. Objective: Afebrile, VSS as noted here. HEENT- anicteric Neck- supple Chest adequate air movement bilaterally CVS-RSR, no extra HS ABD- soft, NT, no mass or HSM EXT- LE- edematous, pale, skin intact LABS as noted here: Hgb 9.0 WBC 0.56, PLT 26. Vital Signs Temp Pulse Resp BP Pulse Ox 36.3 C 120 H 18 118/64 96 02/13/17 08:04 02/13/17 08:04 02/13/17 08:04 02/13/17 08:29 02/13/17 08:04 Laboratory Results 02/13/17 04:45 02/11/17 05:10 02/12/17 02/13/17 02/14/17 05:59 05:59 05:59 Intake Total 200 325 Output Total 1300 1100 500 Balance -1100 -775 -500 PT 17.0 SEC (12.0-15.0) H 02/07/17 18:15 INR 1.39 (0.83-1.16) H 02/07/17 18:15 ICD10 Worksheet Patient Problems: Problems Problem Status Onset Candidiasis Acute Cellulitis Acute Fever Acute CHF (congestive heart failure) Acute Dehydration Acute Elevated brain natriuretic peptide (BNP) level Acute Elevated serum creatinine Acute Weakness Acute
[2017-02-13] MEDS ORDERED: NS 1,000 ML IV SCH (16:00)
[2017-02-13] MEDS: CARVEDILOL 6.25 MG TAB PO SCH ×7 (16:56→21:07)
[2017-02-13] MEDS: ASPIRIN EC 81 MG TAB PO SCH (16:56)
[2017-02-13] MEDS: MULTIVITAMINS 1 EACH TAB PO SCH (16:56)
[2017-02-13] MEDS: CHOLECALCIFEROL VIT D3 1,000 UNITS TAB PO SCH (16:56)
--- NOTE | 2017-02-13 17:55 | ASMTCMCOM ---
CM Note CM Note Notes: Patient discharge needs still TBD. Patients family attentive and at bedside. Patient still remains fairly sedated and it is not clear what her discharge needs will be. Case management will follow. Date Signed: 02/13/2017 05:54 PM Electronically Signed By:KARI Chew
[2017-02-13] MEDS: ACETAMINOPHEN 325 MG TAB PO PRN (21:06)
[2017-02-13] MEDS: AMITRIPTYLINE HCL 25 MG TAB PO SCH (21:07)
[2017-02-13] MEDS: ATORVASTATIN CALCIUM 20 MG TAB PO SCH (21:07)
[2017-02-14] MEDS: D5W IV SCH ×4 (02:17→21:09)
[2017-02-14] MEDS: HYDROCODONE/APAP 5/325 TAB PO PRN ×3 (02:17→13:39)
[2017-02-14] MEDS: ACYCLOVIR IV SCH ×3 (02:17→21:09)
[2017-02-14] MEDS: MEROPENEM 1 GM in NS 100 ML IV SCH ×3 (04:55→22:08)
[2017-02-14 05:27] LABS: ATYPICAL LYMPHOCYTE FLAG 60 (0-99); FRAGMENT RBC FLAG 0 (0-99); HEMATOCRIT 25.2 % (38.0-47.0); HEMOGLOBIN 7.7 g/dL (12.6-16.3); LIPEMIA HEMOLYSIS FLAG 80 (0-99); MEAN CELL HEMOGLOBIN 28.7 pg (27.9-34.1); MEAN CELL HEMOGLOBIN CONCENTR. 30.6 g/dL (32.4-36.7); MEAN PLATELET VOLUME 11.8 fL (8.7-11.7); PLATELET CLUMPS FLAG 30 (0-99); RED BLOOD CELL COUNT 2.68 10^6/uL (4.18-5.33); RED CELL DISTRIBUTION WIDTH 17.6 % (11.5-15.2)
[2017-02-14 05:37] LABS: ALANINE AMINOTRANSFERASE 35 IU/L (9-52); ALBUMIN 2.2 g/dL (3.5-5.0); ALKALINE PHOSPHATASE 98 IU/L (38-126); ANION GAP 9 mEq/L (8-16); ASPARTATE AMINOTRANSFERASE 25 IU/L (14-46); BILIRUBIN,TOTAL 0.9 mg/dL (0.1-1.4); CALCIUM 8.3 mg/dL (8.5-10.4); CARBON DIOXIDE 30 mEq/l (22-31); CHLORIDE 111 mEq/L (97-110); CREATININE 0.7 mg/dL (0.6-1.0); GLOMERULAR FILTRATION RATE > 60; GLUCOSE 134 mg/dL (70-100); POTASSIUM 2.9 mEq/L (3.5-5.2); SODIUM 150 mEq/L (134-144); TOTAL PROTEIN 4.8 g/dL (6.3-8.2)
[2017-02-14 05:52] LABS: LEFT SHIFT FLG 220 (0-99)
[2017-02-14 05:54] LABS: PLATELET COUNT 25 10^3/uL (150-400)
[2017-02-14 06:01] LABS: ABSOLUTE NRBC COUNT 0.03 10^3/uL (0-0.01); NRBC-AUTO% 4.9 % (0.0-0.2)
[2017-02-14 06:03] LABS: % IMMATURE GRANULYOCYTES 1.6 % (0.0-1.1); ABSOLUTE IMMATURE GRANULOCYTES 0.01 10^3/uL (0.00-0.10); ADD MORPH? NO; ADD SCAN? NO
[2017-02-14 06:04] LABS: ADD DIFF? NO
[2017-02-14] MEDS ORDERED: PROTOCOL POTASSIUM 1 DOSE MISC PRN (07:58)
[2017-02-14] MEDS: CARVEDILOL 6.25 MG TAB PO SCH ×2 (09:52→20:42)
[2017-02-14] MEDS: ALLOPURINOL 100 MG TAB PO SCH (09:53)
[2017-02-14] MEDS: POTASSIUM Cl (KCl) 100 ML IV SCH ×3 (09:58→14:51)
[2017-02-14] MEDS: FILGRASTIM-SNDZ 480 MCG/0.8 ML SYR SC SCH (10:17)
[2017-02-14] MEDS: FAMOTIDINE 20 MG/NACL 50 ML IV SCH ×2 (11:13→19:26)
[2017-02-14] MEDS ORDERED: FLUID IV ONE (11:21)
--- NOTE | 2017-02-14 11:30 | SOAPPROG ---
SOAP Progress Note Assessment/Plan: Assessment: 1.) CMML- on Decitabine Cycle 2, Day 23. Markedly pancytopenic Has been placed on G-CSF SQ QD, which can take time to respond to Tx, especially with compromised normal Myeloid precursors in marrow. I doubt that she will recover sufficiently to continue with further active Tx (with Decitabine). Consider RBC transfusion for Hgb < 7.5 and PLT for PLT count < 15 or if bleeding ensues. 2.) Continue Meropenem and Micafungin. Appreciate ID input. IV acyclovir has been added . 3.) Continue analgesics 4.) Speech Therapy input noted. Pt swallowing meds well with RN supervision. Consider NPO except oral meds with RN supervision. 5.) Both allopurinol and colchicine can suppress the marrow. Consider if either or both could be discontinued. 6.) Would avoid TPN and not a candidate for placement of NGT given her degree of pharyngitis sx. 7.) With fall and low platelet count and more prominent confusion, will order CT head to day to evaluate for CVA or hemorrhage. D/W patient's daughter. 8.) Discharge considerations: Daughter agrees that Sourav could not be cared for at home in this situation, and agrees that SNF perhaps next week would be most feasible. 9.) Hypokalemia- replete and recheck. 10.) Hypernatremia- will change from IV NS to IVF with D5 instead. It appears that several meds are being given IV with NS. Plan: See above discussion. 02/14/17 11:30 Subjective: Pt with more periods of confusion and headache. Was not able to swallow any substantial fluid or caloric intake. Pt fell overnight from chair. Objective: Lethargic, partially due to analgesics administered, but arousable and answers questions appropriately. in NAD, but looks uncomfortable Daughter at bedside. HEENT- anicteric, no change in palate and mucosal ulcerations Neck- supple Chest- clear anteriorly, Mediport- NT/accessed CVS- RSR, no extra HS ABD- soft, BS+, nondistended EXT- 1+ leg edema, bilaterally Labs as noted here: Na+ 150, K+2.9, Hgb 7.7 , PLT 25, WBC 0.61 Vital Signs Temp Pulse Resp BP Pulse Ox 36.6 C 108 H 15 120/72 89 L 02/14/17 03:11 02/14/17 09:52 02/14/17 03:11 02/14/17 09:52 02/14/17 08:00 Laboratory Results 02/14/17 04:40 02/14/17 04:40 02/13/17 02/14/17 02/15/17 05:59 05:59 05:59 Intake Total 325 2500 Output Total 1100 850 2 Balance -775 1650 -2 PT 17.0 SEC (12.0-15.0) H 02/07/17 18:15 INR 1.39 (0.83-1.16) H 02/07/17 18:15 ICD10 Worksheet Patient Problems: Problems Problem Status Onset Candidiasis Acute Cellulitis Acute Fever Acute CHF (congestive heart failure) Acute Dehydration Acute Elevated brain natriuretic peptide (BNP) level Acute Elevated serum creatinine Acute Weakness Acute
[2017-02-14] MEDS: POTASSIUM CL IV SCH (13:18)
[2017-02-14] MEDS ORDERED: IOPAMIDOL (ISOVUE 370) 100 ML BTL IV ONE (13:59)
[2017-02-14] MEDS: MICAFUNGIN NA 100 MG in NS 100 ML IV SCH (14:44)
[2017-02-14] MEDS: ASPIRIN EC 81 MG TAB PO SCH (14:50)
[2017-02-14] MEDS: predniSONE 5 MG TAB PO SCH (14:51)
[2017-02-14] MEDS: MULTIVITAMINS 1 EACH TAB PO SCH (14:51)
[2017-02-14] MEDS: VITAMIN B COMPLEX 1 EA CAP/TAB PO SCH (14:52)
--- NOTE | 2017-02-14 15:00 | HOSPPROG ---
Hospitalist Progress Note Assessment/Plan: 76-year-old female who has been undergoing treatment for CML was discharged from [facility] 0916. she was admitted secondary to a fever while undergoing a platelet transfusion. Patient is new to me today. Today the patient is a little drowsy and reports she has pain but says her pain is in her lower back. She denies mouth pain but does report some difficulty or pain when swallowing. Her daughter reports she is eating less today than yesterday. -Neutropenic fever - ANC remains 20. No fever since 02/08 Potential sources are left knee cellulitis vs oropharyngeal candidiasis / pharyngitis, ?HSV lesions in posterior oropharynx. CXR - clear, UA neg. CT neck / chest Show no infectious source. BCx's remain NGTD. oxygen saturations 99% on 4L -Cont Meropenem, Micafungin. Vanc dc'd -dc'd levofloxacin 02/12 -follow cultures -Sinus tachycardia - suspect multifactorial, This remains persistent. - coreg has been on hold and pt appear dry on exam - - cont hold lasix - restart coreg - give small NS bolus as PO has been poor -Chronic systolic heart failure - Echo 1 week ago at [facility]- EF 28%, mod RV dysfunction, severe MR, mod TR. Dry on admission, required IVF resuscitation. Received IV Lasix early in admit with minimal LE edema - creatinine stable 0.9 - continue oral Lasix -resumed Entresto yesterday -monitor I&O's, daily weights -Dysphagia / pharyngitis - ? secondary to candidiasis. Also consider HSV with oral lesions, viral studies pending. Appreciate ENT consult. -cont viscous lidocaine for pain -humidified face mask -consider GI eval / EGD if not improving with Micafungin -decreased pain med from oxy 10mg -> norco with much less somnolence, Though she continues to be somnolent somewhat today. - I believe this is improving with microfungin yet she continues to complain of it I would have a GI endoscopy performed. - Elevated trop - likely strain in setting of acute infection, peaked 0.058, now trending down. CP free. Echo on admit no new WMA - no additional work up at this time -CML - Diagnosed 11/17/2016, followed by Dr. Navarro, on Dacogen chemotherapy- counts remain low -appreciate onc assistance - Pancytopenia - secondary to chemo. Recently transfused 2u PRBC's and 1 u platelets - last transfused 02/07/17 -continue filgrastim -no transfusion indicated today -follow cbc - Adrenal insufficiency - received stress dose steroids with severity of illness on presentation -weaned off hydrocortisone -home oral prednisone dose of 5 mg daily ordered to resume 02/13 # Chronic hypoxemia - thought secondary to OHS, baseline O2 requirement of 2 LPM # LBBB - this is chronic, had recent echo 7 days ago. # Code status - discussed with daughter, who is DPOA. Pt is DNR. # DVT PPLX - Lovenox c/i due to low plts, SCD's Dispo - cont inpt, attempting to transfer to / cancer care daily, but no beds Discussed the case with the RN and with the family, her daughter. They report that the patient has chronic back pain CT has not slept in a bed for 5 years as she prefers to sit in a chair. They also report that she is much more weak now than she was a month ago. I restarted PT and encourage the lady to lie in the bed for relief of some of her back pain. Some back pain also seems to be more musculoskeletal and relieved by a massage and I have encouraged the family to massage her back. Time 45 minutes Subjective: c/o mouth pain and not eating. Today reports eating really hurts her mouth. ;Concern about caloric intake Objective: Vital Signs Temp Pulse Resp BP Pulse Ox 36.6 C 98 18 118/78 97 02/14/17 03:11 02/14/17 14:06 02/14/17 14:06 02/14/17 14:06 02/14/17 14:06 Laboratory Results 02/14/17 04:40 02/14/17 04:40 02/13/17 02/14/17 02/15/17 05:59 05:59 05:59 Intake Total 325 2500 Output Total 1100 850 2 Balance -775 1650 -2 PT 17.0 SEC (12.0-15.0) H 02/07/17 18:15 INR 1.39 (0.83-1.16) H 02/07/17 18:15 - Time Spent With Patient Time Spent with Patient: greater than 35 minutes Time Spent with Patient: Greater than 35 minutes spent on this patients care, greater than 50% of time spent counseling, educating, and coordinating care regarding the above mentioned plan. - Pending Discharge Pending Discharge Within 24 Hours: No Pending Discharge Within 48 Hours: No - Physical Exam Constitutional: chronically ill appearing, other (appears in pain, moaning in pain, reported to be in her lower back) Eyes: PERRL Ears, Nose, Mouth, Throat: moist mucous membranes, other (dentures) Cardiovascular: regular rate and rhythym Respiratory: no respiratory distress, no rales or rhonchi, clear to auscultation , reduced air movement Gastrointestinal: normoactive bowel sounds, soft, non-tender abdomen, no palpable masses, other (obese) Genitourinary: no bladder fullness Skin: warm Musculoskeletal: generalized weakness Neurologic: AAOx3, CN II-XII Intact Psychiatric: other (seems depressed and in chronic dyscomfort) ICD10 Worksheet Patient Problems: Problems Problem Status Onset Elevated serum creatinine Acute Dehydration Acute Elevated brain natriuretic peptide (BNP) level Acute CHF (congestive heart failure) Acute Weakness Acute Fever Acute Candidiasis Acute Cellulitis Acute
[2017-02-14] MEDS: SACUBITRIL/VALSARTAN 24/26MG 1 EA TAB PO SCH ×2 (16:47→20:41)
--- NOTE | 2017-02-14 16:48 | ASMTCMCOM ---
CM Note CM Note Notes: Today Pt. is somewhat encephalopathic and appears to be in pain. RN aware and managing pain. Dr. Guerin is oncologist. Per RN, daughter Sayda is thinking about a Palliative consult should Pt. not improve. Per RN, Sayda lost her partner in May to colon cancer. Note [facility] is open for an RN. D/c plan TBD. Date Signed: 02/14/2017 04:47 PM Electronically Signed By:Marika Castillo LCSW
--- NOTE | 2017-02-14 18:10 | PCMIDPN ---
Assessment/Plan: Assessment/Plan: * Neutropenic fever: No further fever with slow improvement in ANC but still well below 500. Continue empiric meropenem given suppressed ANC. * Oral ulcerations: Now on empiric acyclovir. HSV and VZV PCR pending. Continue ongoing supportive care. Continues with limited oral intake which may need to be addressed with supplemental nutrition if continues. * Oropharyngeal candidiasis: Continue micafungin. No thrush on exam. * Left knee abrasion: No signs or symptoms of superimposed infection. 02/14/17 18:07 Subjective: Patient complains of painful throat and swallowing. Objective: Vital Signs Temp Pulse Resp BP Pulse Ox 36.7 C 104 H 16 122/72 H 97 02/14/17 15:36 02/14/17 15:36 02/14/17 15:36 02/14/17 15:36 02/14/17 15:36 Laboratory Results 02/14/17 04:40 02/14/17 04:40 02/13/17 02/14/17 02/15/17 05:59 05:59 05:59 Intake Total 325 2500 100 Output Total 1100 850 2 Balance -775 1650 98 Meropenem # 5 Micafungin # 6 Acyclovir # 2 HSV/VZV PCR pending on oral ulcerations ANC 170 - Physical Exam General Appearance: alert, non-toxic EENT: other (Posterior oral ulcerations present), No thrush Respiratory: lungs clear, No respiratory distress Cardiac/Chest: regular rate, rhythm, other (Port nontender without erythema) Extremities: inflammation (Left knee with denuded skin and central eschar; no surrounding erythema) Abdomen: non-tender, No distended ICD10 Worksheet Patient Problems: Problems Problem Status Onset Candidiasis Acute Cellulitis Acute Fever Acute CHF (congestive heart failure) Acute Dehydration Acute Elevated brain natriuretic peptide (BNP) level Acute Elevated serum creatinine Acute Weakness Acute
[2017-02-14] MEDS: CHOLECALCIFEROL VIT D3 1,000 UNITS TAB PO SCH (19:15)
[2017-02-14 19:20] LABS: SPECIMEN SOURCE MOUTH; SPECIMEN SOURCE MOUTH SWAB; VARICELLA ZOSTER NEGATIVE (Negative)
[2017-02-14] MEDS: ATORVASTATIN CALCIUM 20 MG TAB PO SCH (20:42)
[2017-02-14] MEDS: AMITRIPTYLINE HCL 25 MG TAB PO SCH (20:42)
[2017-02-15] MEDS: ACYCLOVIR IV SCH ×3 (04:29→18:16)
[2017-02-15] MEDS: D5W IV SCH ×4 (04:29→18:16)
[2017-02-15 05:03] LABS: ABSOLUTE NRBC COUNT 0.05 10^3/uL (0-0.01); ADD DIFF? YES; ATYPICAL LYMPHOCYTE FLAG 0 (0-99); FRAGMENT RBC FLAG 0 (0-99); HEMATOCRIT 28.9 % (38.0-47.0); HEMOGLOBIN 8.9 g/dL (12.6-16.3); LIPEMIA HEMOLYSIS FLAG 80 (0-99); MEAN CELL HEMOGLOBIN 28.9 pg (27.9-34.1); MEAN CELL HEMOGLOBIN CONCENTR. 30.8 g/dL (32.4-36.7); MEAN CELL VOLUME 93.8 fL (81.5-99.8); MEAN PLATELET VOLUME 12.5 fL (8.7-11.7); PLATELET CLUMPS FLAG 0 (0-99); RED BLOOD CELL COUNT 3.08 10^6/uL (4.18-5.33); RED CELL DISTRIBUTION WIDTH 17.8 % (11.5-15.2)
[2017-02-15 05:04] LABS: ADD MORPH? NO; ADD SCAN? NO; LEFT SHIFT FLG 300 (0-99); NRBC-AUTO% 2.9 % (0.0-0.2); PLATELET COUNT 37 10^3/uL (150-400)
[2017-02-15 05:18] LABS: ALANINE AMINOTRANSFERASE 34 IU/L (9-52); ALBUMIN 2.5 g/dL (3.5-5.0); ALKALINE PHOSPHATASE 120 IU/L (38-126); ANION GAP 11 mEq/L (8-16); ASPARTATE AMINOTRANSFERASE 28 IU/L (14-46); BILIRUBIN,TOTAL 0.7 mg/dL (0.1-1.4); CARBON DIOXIDE 31 mEq/l (22-31); CHLORIDE 110 mEq/L (97-110); CREATININE 0.7 mg/dL (0.6-1.0); GLOMERULAR FILTRATION RATE > 60; GLUCOSE 141 mg/dL (70-100); POTASSIUM 4.3 mEq/L (3.5-5.2); SODIUM 152 mEq/L (134-144)
[2017-02-15 05:28] LABS: PLATELET ESTIMATE DECREASED (ADEQ); TOXIC GRANULATION PRESENT; TOXIC VACUOLIZATION PRESENT
[2017-02-15] MEDS: POTASSIUM CL IV SCH (06:24)
[2017-02-15] MEDS: MEROPENEM 1 GM in NS 100 ML IV SCH (06:32)
[2017-02-15] MEDS: FAMOTIDINE 20 MG/NACL 50 ML IV SCH ×2 (07:46→20:37)
[2017-02-15] MEDS: FILGRASTIM-SNDZ 480 MCG/0.8 ML SYR SC SCH (07:46)
[2017-02-15] MEDS: MICAFUNGIN NA 100 MG in NS 100 ML IV SCH (07:46)
[2017-02-15] MEDS ORDERED: D5W 1,000 ML IV SCH (08:45)
[2017-02-15] MEDS: ALLOPURINOL 100 MG TAB PO SCH (09:15)
[2017-02-15] MEDS: CARVEDILOL 6.25 MG TAB PO SCH (09:16)
[2017-02-15] MEDS: predniSONE 5 MG TAB PO SCH (09:16)
[2017-02-15] MEDS: SACUBITRIL/VALSARTAN 24/26MG 1 EA TAB PO SCH ×2 (09:17→22:03)
[2017-02-15] MEDS: VITAMIN B COMPLEX 1 EA CAP/TAB PO SCH (09:17)
[2017-02-15] MEDS: ASPIRIN EC 81 MG TAB PO SCH (11:01)
[2017-02-15] MEDS: MULTIVITAMINS 1 EACH TAB PO SCH (11:02)
--- NOTE | 2017-02-15 11:39 | PCMIDPN ---
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 # Aspiration PNA: Currently day 7 of antibiotics, due to severity of illness will plan a total of 10. --narrow antibiotics to ceftriaxone and metronidazole for aspiration pneumonia for 3 more days (stop dates adjusted in JUL) --discontinue meropenem # delirium: Carbapenem could be contributing factor, discontinuation today Medications, antibiotics # 7 Meropenem 1 g IV Q 8, #2 Micafungin 100 mg IV daily Subjective: Patient is delirious and unable to provide complaints. Daughter is at bedside and clinical course was reviewed with her Objective: Vital Signs Temp Pulse Resp BP Pulse Ox 36.5 C 117 H 24 H 110/72 93 02/15/17 07:55 02/15/17 09:16 02/15/17 07:55 02/15/17 09:17 02/15/17 07:55 Laboratory Results 02/15/17 05:00 02/15/17 05:00 02/14/17 02/15/17 02/16/17 05:59 05:59 05:59 Intake Total 2500 100 Output Total 850 702 180 Balance 1650 -602 -180 - Physical Exam General Appearance: alert, obese, other (Chronic ill appearance) EENT: pale conjunctiva, other (Dry mucous membranes with ulcers in various stages of healing. No oral candidiasis noted) Respiratory: coarse breath sounds, No respiratory distress, No accessory muscle use Extremities: pedal edema (Mild) Abdomen: normal bowel sounds, non-tender, soft Skin: warm/dry, pallor, No rash Neuro/Psych: confused, other (Following simple commands) - Line/s Mediport Lines: No drainage, No erythema - Time Spent With Patient Time Spent with Patient: greater than 25 minutes (care coordinated with Dr. Orr) Time Spent with Patient: Greater than 25 minutes spent on this patients care, greater than 50% of time spent counseling, educating, and coordinating care regarding the above mentioned plan. ICD10 Worksheet Patient Problems: Problems Problem Status Onset Candidiasis Acute Cellulitis Acute Fever Acute CHF (congestive heart failure) Acute Dehydration Acute Elevated brain natriuretic peptide (BNP) level Acute Elevated serum creatinine Acute Weakness Acute
--- NOTE | 2017-02-15 12:48 | HOSPPROG ---
Hospitalist Progress Note Assessment/Plan: #Severe mucositis: HSV, wyatt. 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 Trial heating pad -trial Zydis if can tolerate PO. If not, low-dose Haldol IV #Acute hypoxic resp failure: due to PNA, IVFs. Hold IVFs for now. Repeat CXR in morning #Systolic HF: EF 28%, no WMA on recent TTE. Change to IV BB since not taking PO. Resume rest of cardiac meds when taking PO #CML: not responding to chemo. Reviewed with Dr. Hendrickson. Prognosis is a few months without chemo. I talked with daughter (OWEN) about goals today. -Palliative care to consult #Protein caloric malnutrition: not good candidate for feeding tube with mucositis nor TPN given risks of bacteremia #Tachycardia: multifactorial with agitation and off cardiac meds. Change to IV BB since not taking PO #Goals: I had 2 conversations today along with Dr. Hendrickson stating poor prognosis of < 6 months off chemo. She understands and Palliative care to consult today #Diet: NPO #DVT ppx: SCDs #Disp: transfer to PCU for telemetry and IV BB Critical care spent 60 min. 20 min bedside with patient, remaining time reviewing records/labs and d/w Dr. Hendrickson and Dr. Boogie Subjective: per daughter, was more talkative yesterday. Doesn't like being in chair Objective: Vital Signs Temp Pulse Resp BP Pulse Ox 36.7 C 120 H 19 128/82 H 96 02/15/17 12:08 02/15/17 12:08 02/15/17 12:08 02/15/17 12:08 02/15/17 12:08 Laboratory Results 02/15/17 05:00 02/14/17 02/15/17 02/16/17 05:59 05:59 05:59 Intake Total 2500 100 Output Total 850 702 380 Balance 1650 -602 -380 PT 17.0 SEC (12.0-15.0) H 02/07/17 18:15 INR 1.39 (0.83-1.16) H 02/07/17 18:15 - Physical Exam Constitutional: chronically ill appearing, obese, other (restless in bed, rocking back and forth) Ears, Nose, Mouth, Throat: moist mucous membranes, dry mucous membranes, other ( buccal ulcerations, BL, crusted over lesions over lips) Cardiovascular: regular rate and rhythym, edema (+2 LE edema) Respiratory: other (patient not participating in exam), No rhonchi Gastrointestinal: normoactive bowel sounds Genitourinary: no bladder fullness Skin: warm Musculoskeletal: generalized weakness Neurologic: other (she is not tolerating in exam. Will open mouth and simple commands when asked) Psychiatric: encephalopathic ICD10 Worksheet Patient Problems: Problems Problem Status Onset Candidiasis Acute Cellulitis Acute Fever Acute CHF (congestive heart failure) Acute Dehydration Acute Elevated brain natriuretic peptide (BNP) level Acute Elevated serum creatinine Acute Weakness Acute
[2017-02-15] MEDS ORDERED: OLANZapine DISINTEGR 5 MG TAB PO PRN (13:00)
[2017-02-15] MEDS ORDERED: HALOPERIDOL LACT 5 MG/ML INJ IVP PRN (13:01)
[2017-02-15 13:33] LABS: ANION GAP 11 mEq/L (8-16); CARBON DIOXIDE 30 mEq/l (22-31); CHLORIDE 109 mEq/L (97-110); CREATININE 0.7 mg/dL (0.6-1.0); GLOMERULAR FILTRATION RATE > 60; GLUCOSE 125 mg/dL (70-100); POTASSIUM 3.7 mEq/L (3.5-5.2); SODIUM 150 mEq/L (134-144)
--- NOTE | 2017-02-15 15:03 | SOAPPROG ---
SOAP Progress Note Assessment/Plan: Assessment: 1.) CMML- on Decitabine Cycle 2, Day 25. Markedly pancytopenic Has been placed on G-CSF SQ QD, which can take time to respond to Tx, especially with compromised normal Myeloid precursors in marrow. I doubt that she will recover sufficiently to continue with further active Tx (with Decitabine). 2.) Appreciate ID input. IV acyclovir has been added . Antibiotic regimen has been changed to Ceftriaxone, Metronidazole, and Fluconazole. 3.) Continue analgesics 4.) Sinus Tachy noted. 5.) Both allopurinol and colchicine can suppress the marrow. Consider if either or both could be discontinued. 6.) Would avoid TPN and not a candidate for placement of NGT given her degree of pharyngitis sx. 7.) CT scans shows no intracranial bleed or other acute pathology. 8.) Discharge considerations: I spoke with Sourav's daughter at length out of the patient room to inform her of the very poor prognosis and the need to move from plans for active therapy to a strictly comfort measures/palliative approach , recognizing a very short prognosis. We discussed home care with perhaps Hospice support. at home or a SNF with palliative care or Hospice care as another alternative. This conversation was adequately received and her daughter is realistic in wanting to provide symptom relief with the acknowledgement of a short life span. 9.) Hypokalemia- replete and recheck. 10.) Hypernatremia- will change from IV NS to IVF with D5 instead. It appears that several meds are being given IV with NS. Plan: See above discussion. 02/15/17 15:03 Subjective: Pt with agitation and pain overnight and today. Has trouble finding comfortable positioning. Daughter at bedside. Objective: As noted here, in ST, afebrile Looks restless and uncomfortable HEENT- anicteric, dry oral mucosa. Post pharynx was not able to be visualized. Neck- supple Chest - scattered upper airway rhonchi CVS- RSR, no extra HS ABD- mildy distended, BS+ EXT - Left Knee with bandage over wound. LABS- as noted here. WBC up to 1.73, PLt 37, Hgb 8.9 Na 150 Vital Signs Temp Pulse Resp BP Pulse Ox 36.7 C 120 H 19 128/82 H 96 02/15/17 12:08 02/15/17 12:08 02/15/17 12:08 02/15/17 12:08 02/15/17 12:08 Laboratory Results 02/15/17 05:00 02/15/17 11:25 02/14/17 02/15/17 02/16/17 05:59 05:59 05:59 Intake Total 2500 100 Output Total 850 702 380 Balance 1650 -602 -380 PT 17.0 SEC (12.0-15.0) H 02/07/17 18:15 INR 1.39 (0.83-1.16) H 02/07/17 18:15 ICD10 Worksheet Patient Problems: Problems Problem Status Onset Candidiasis Acute Cellulitis Acute Fever Acute CHF (congestive heart failure) Acute Dehydration Acute Elevated brain natriuretic peptide (BNP) level Acute Elevated serum creatinine Acute Weakness Acute
[2017-02-15] MEDS: FUROSEMIDE 20 MG/2 ML VIAL IVP SCH (15:44)
[2017-02-15 16:17] LABS: COLOR YELLOW; LEUKOCYTE ESTERASE,URINE NEGATIVE (NEGATIVE); NITRITE,URINE NEGATIVE (NEGATIVE)
[2017-02-15 16:22] LABS: MUCUS TRACE /lpf (NONE-1+)
--- NOTE | 2017-02-15 16:25 | ASMTCMCOM ---
CM Note CM Note Notes: Pt will tx to PCU later today. Dr Hazel would like pt to have a hospice consult tomorrow. Jodi from palliative has a meeting with dtr tomorrow to discuss hospice vs palliative and asked that no agency be contacted until that meeting with dtr. C/M will continue to follow. Date Signed: 02/15/2017 04:24 PM Electronically Signed By:Milla Parks LCSW
[2017-02-15] MEDS: CHOLECALCIFEROL VIT D3 1,000 UNITS TAB PO SCH (17:00)
[2017-02-15] MEDS: METOPROLOL TARTRATE 5 MG/5 ML INJ IVP SCH ×2 (17:29→23:24)
[2017-02-15 21:00] LABS: POTASSIUM 3.3 mEq/L (3.5-5.2)
[2017-02-15] MEDS: ATORVASTATIN CALCIUM 20 MG TAB PO SCH (21:40)
[2017-02-15] MEDS: AMITRIPTYLINE HCL 25 MG TAB PO SCH (21:40)
[2017-02-15] MEDS: POTASSIUM Cl (KCl) 100 ML IV SCH (23:35)
[2017-02-16] MEDS: POTASSIUM Cl (KCl) 100 ML IV SCH ×2 (00:37→01:36)
[2017-02-16] MEDS: ACYCLOVIR IV SCH ×3 (03:01→18:05)
[2017-02-16] MEDS: D5W IV SCH ×3 (03:01→18:05)
[2017-02-16] MEDS: METOPROLOL TARTRATE 5 MG/5 ML INJ IVP SCH (05:46)
[2017-02-16 06:03] LABS: % IMMATURE GRANULYOCYTES 0.5 % (0.0-1.1); ABSOLUTE IMMATURE GRANULOCYTES 0.01 10^3/uL (0.00-0.10); ABSOLUTE NRBC COUNT 0.05 10^3/uL (0-0.01); ADD DIFF? NO; ADD MORPH? YES; ADD SCAN? YES; ATYPICAL LYMPHOCYTE FLAG 0 (0-99); FRAGMENT RBC FLAG 0 (0-99); HEMATOCRIT 26.2 % (38.0-47.0); HEMOGLOBIN 8.1 g/dL (12.6-16.3); LEFT SHIFT FLG 300 (0-99); LIPEMIA HEMOLYSIS FLAG 80 (0-99); MEAN CELL HEMOGLOBIN 28.3 pg (27.9-34.1); MEAN CELL HEMOGLOBIN CONCENTR. 30.9 g/dL (32.4-36.7); MEAN CELL VOLUME 91.6 fL (81.5-99.8); MEAN PLATELET VOLUME 11.1 fL (8.7-11.7); NRBC-AUTO% 2.7 % (0.0-0.2); PLATELET CLUMPS FLAG 0 (0-99); PLATELET COUNT 35 10^3/uL (150-400); RED BLOOD CELL COUNT 2.86 10^6/uL (4.18-5.33); RED CELL DISTRIBUTION WIDTH 17.4 % (11.5-15.2)
[2017-02-16 06:38] LABS: PLATELET ESTIMATE DECREASED (ADEQ); SCAN NEGATIVE; TOXIC GRANULATION PRESENT; TOXIC VACUOLIZATION PRESENT
[2017-02-16 06:40] LABS: ALANINE AMINOTRANSFERASE 36 IU/L (9-52); ALBUMIN 2.3 g/dL (3.5-5.0); ALKALINE PHOSPHATASE 121 IU/L (38-126); ANION GAP 9 mEq/L (8-16); ASPARTATE AMINOTRANSFERASE 32 IU/L (14-46); BILIRUBIN,TOTAL 1.1 mg/dL (0.1-1.4); CALCIUM 8.2 mg/dL (8.5-10.4); CARBON DIOXIDE 34 mEq/l (22-31); CHLORIDE 105 mEq/L (97-110); CREATININE 0.7 mg/dL (0.6-1.0); GLOMERULAR FILTRATION RATE > 60; GLUCOSE 105 mg/dL (70-100); POTASSIUM 3.2 mEq/L (3.5-5.2); SODIUM 148 mEq/L (134-144)
[2017-02-16] MEDS: HYDROCODONE/APAP 5/325 TAB PO PRN (07:46)
[2017-02-16] MEDS: ALLOPURINOL 100 MG TAB PO SCH (08:51)
[2017-02-16] MEDS: predniSONE 5 MG TAB PO SCH (08:51)
[2017-02-16] MEDS: VITAMIN B COMPLEX 1 EA CAP/TAB PO SCH (08:52)
[2017-02-16] MEDS: FAMOTIDINE 20 MG/NACL 50 ML IV SCH ×2 (08:52→20:42)
--- NOTE | 2017-02-16 09:01 | HOSPPROG ---
Hospitalist Progress Note Assessment/Plan: #Severe mucositis: HSV, wyatt. 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 Multifactorial with hypernatremia, opioids and acute illnesses -CTA, CTH negative 02/14 -Na improved to 148 today -moaning likely due to agitation, not pain; stop morphine, decrease opioid frequency. Trial heating pad -trial Zydis if can tolerate PO. If not, low-dose Haldol IV #Hypernatremia: improving #Acute hypoxic resp failure: due to PNA, IVFs. Hold IVFs for now. Gentle diuresis #Systolic HF: EF 28%, no WMA on recent TTE. 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 Reviewed with Dr. Hendrickson. Prognosis is a few months without chemo. I talked with daughter (MDPOA) about goals today. -Palliative care to consult today #Pancytopenia: Filgrastim #Protein caloric malnutrition: not good candidate for feeding tube with mucositis nor TPN given risks of bacteremia #Tachycardia: multifactorial with agitation. Improved with resumption of Coreg #Goals: daughter met with Palliative care and hospice today. Plan for DC to NH with hospice once accepted #Diet: ADAT. #DVT ppx: SCDs #Disp: cont inpatient admission requiring IV lasix, electrolytes, abx Time spent on visit: 45 min bedside with patient and counseling daughter on hospice and DC plan Subjective: denies mouth pain this morning. Swallows pills without cough per RN Objective: Vital Signs Temp Pulse Resp BP Pulse Ox 37.2 C 112 H 20 140/96 H 96 02/16/17 08:00 02/16/17 08:00 02/16/17 08:00 02/16/17 08:00 02/16/17 08:00 Laboratory Results 02/16/17 05:50 02/15/17 02/16/17 02/17/17 05:59 05:59 05:59 Intake Total 100 975 Output Total 702 2550 Balance -602 -1575 PT 17.0 SEC (12.0-15.0) H 02/07/17 18:15 INR 1.39 (0.83-1.16) H 02/07/17 18:15 - Physical Exam Constitutional: other (brighter today, more alert and talkative) Ears, Nose, Mouth, Throat: dry mucous membranes, other (multiple buccal ulcerations, dry secretions in mouth. Scabbed ulcers at corners of mouth) Cardiovascular: regular rate and rhythym, edema (+ 2 LE to knees, BL ) Respiratory: other (decreased BS, BL ), No respiratory distress Gastrointestinal: normoactive bowel sounds, soft, non-tender abdomen Genitourinary: no bladder fullness Skin: warm Musculoskeletal: generalized weakness Neurologic: other (alert to hospital and partial birthdate) Psychiatric: encephalopathic, anxious, poor memory ICD10 Worksheet Patient Problems: Problems Problem Status Onset Candidiasis Acute Cellulitis Acute Fever Acute Palliative care encounter Acute CHF (congestive heart failure) Acute Dehydration Acute Elevated brain natriuretic peptide (BNP) level Acute Elevated serum creatinine Acute Weakness Acute
[2017-02-16] MEDS: FLUCONAZOLE/NaCl 100 ML IV SCH (10:37)
[2017-02-16] MEDS: CARVEDILOL 6.25 MG TAB PO SCH ×2 (10:43→18:04)
[2017-02-16] MEDS: FILGRASTIM-SNDZ 480 MCG/0.8 ML SYR SC SCH (10:47)
[2017-02-16 11:21] LABS: ANION GAP 10 mEq/L (8-16); CALCIUM 7.7 mg/dL (8.5-10.4); CARBON DIOXIDE 34 mEq/l (22-31); CHLORIDE 105 mEq/L (97-110); CREATININE 0.7 mg/dL (0.6-1.0); GLOMERULAR FILTRATION RATE > 60; GLUCOSE 112 mg/dL (70-100); POTASSIUM 3.2 mEq/L (3.5-5.2); SODIUM 149 mEq/L (134-144)
[2017-02-16] MEDS: SACUBITRIL/VALSARTAN 24/26MG 1 EA TAB PO SCH ×2 (11:26→20:41)
[2017-02-16] MEDS ORDERED: PROTOCOL POTASSIUM 1 DOSE MISC PRN (11:34)
[2017-02-16] MEDS ORDERED: POTASSIUM CL 10 MEQ TAB PO ONE ×2 (11:37→22:29)
[2017-02-16] MEDS ORDERED: POTASSIUM Cl (KCl) 100 ML IV SCH (11:45)
[2017-02-16] MEDS: ASPIRIN EC 81 MG TAB PO SCH (12:10)
[2017-02-16] MEDS: MULTIVITAMINS 1 EACH TAB PO SCH (12:10)
[2017-02-16] MEDS: FUROSEMIDE 20 MG/2 ML VIAL IVP SCH (12:47)
--- NOTE | 2017-02-16 14:33 | WOCRNPDOC ---
WOCRN Advanced Assessment Note - Skin Integrity Problem, Advanced Assess Left Knee Abrasion Dressing Type: Hydrocolloid Dressing Description: Intact Exudate Amount: Scant Exudate Color: Reddish/Yellow Exudate Characteristic(s): Serosanguinous Integumentary Issue Intervention: Dressing Changed, Hydrogel Applied Sowmya Wound Tissue: Macerated Wound Bed Color: Black, Red Wound Bed Constitution: Smooth Tissue (partial-thickness circumferentially), Mixed Loose & Adhered Slough/Eschar Site Odor: None Site Measurement - Head-to-Toe Length X Width X Depth (cm): 2.8cmx2.4cmx eschar. 0.8cm border circumferentially of partial-thickness loss Skin Integrity Problem Comment: Eschar still well-adhered to wound bed, and patient is unable to tolerate mechanical debridment w/ gauze. There is some sowmya -wound maceration, to which I applied 2 layers of skin prep. Will continue w/ hydrocolloid dressing as it does appear to be loosening the eschar and allows for atraumatic dressing removal. Will follow-up with patient on Monday 02/19.
[2017-02-16] MEDS: ACETAMINOPHEN 325 MG TAB PO PRN (15:02)
--- NOTE | 2017-02-16 15:32 | PDPCPN ---
Palliative Care Progress Note Assessment/Plan: Referring provider: Dr Orr Reason for consult: Complex medical decision making Symptom control HPI: Sourav Marques is a 76 yo female with PMH CHF, CML, Gout, CKD, and HTn admitted to the hospital for fevers and neck pain. Recent discharge 01/27 for CHF and pancytopenia. Being treated for asp PNA, neutropenia, severe mucositis, and encephalopathy. Oncology involved and chemo not able to be given due to poor performance status. Palliative care consulted for complex medical decision making. Met with daughter Ladan and her partner outside of the room. Ladan discussed she understands the medical plan with having a limited life expectancy without treatments for her CML. She does not feel her mother has a good quality of life and should not have life prolonging measures. We discussed options including hospice care. Her daughter wants her to be as comfortable as possible and feels she would want to be at home but is unsure she can provide the level of support she needs for her there. Assessment: Physical: - Pain: none at present -norco PRN - Dyspnea: - oxygen as needed - poor appetite: - diet as tolerated - small, frequent meals - lidocaine viscous for oral mouth pain Emotional/psychological: acute encephalopathy: - zyprexa or haldol PRN - maintain normal routines Advanced Care Planning: Is patient decisional?: no Code Status: DNR POA: daughter Ladan is MDPOA. Plan: To meet with hospice care for possible discharge to care center vs home vs LTC. Subjective: sleeping Objective: Social History: Lives in Senior housing. Enjoys watching TV in her chair at home. Has a lot of friends who also visit. 1 daughter local and involved. Medication list reviewed ROS: General: fatigue, weakness ENT: oral mouth pain Resp: dyspnea GI: poor appetite : negative MS: negative Skin: negative Neuro: negative Psych: confusion Functional assessment: PPS: 40% Functional status: dependent on ADLs, IADLs Vital Signs Temp Pulse Resp BP Pulse Ox 36.1 C 101 H 20 128/92 H 96 02/16/17 14:51 02/16/17 14:51 02/16/17 14:51 02/16/17 14:51 02/16/17 14:51 Laboratory Results 02/16/17 10:30 02/15/17 02/16/17 02/17/17 05:59 05:59 05:59 Intake Total 100 975 Output Total 388 8570 Balance -602 -1573 PT 17.0 SEC (12.0-15.0) H 02/07/17 18:15 INR 1.39 (0.83-1.16) H 02/07/17 18:15 Physical Exam - Physical Exam General Appearance: no apparent distress, other (sleeping) Respiratory: No respiratory distress, No accessory muscle use Skin: normal color, warm/dry Extremities: pedal edema Neuro/Psych: other (sleeping) ICD10 Worksheet Patient Problems: Problems Problem Status Onset Candidiasis Acute Cellulitis Acute Fever Acute Palliative care encounter Acute CHF (congestive heart failure) Acute Dehydration Acute Elevated brain natriuretic peptide (BNP) level Acute Elevated serum creatinine Acute Weakness Acute - ICD10 Problem Qualifiers (1) Palliative care encounter
[2017-02-16] MEDS: IBUPROFEN 600 MG TAB PO PRN ×2 (15:44→22:57)
--- NOTE | 2017-02-16 17:16 | ASMTCMCOM ---
CM Note CM Note Notes: Jodi from pallative met w/ pt and daughter this morning. Family would like to pursue [facility]. CM made a referral to [facility]. [facility] was in this morning and met w/ pts daughter. [facility] does not think that pt is appropriate for inpatient hospice at this time but willing to follow pt once there is a dispo plan. Pts daughter is unable to care for pt at home 24hr a day. Daughter is interested in pursuing skilled correction care. Referrals made to [facility], and to [facility]. Pt has been accepted to [facility]. Pt is interested in finding out the cost for private pay at [facility]. CM provided daughter w/ cost for [facility] per day. Daughter reports that she will most likely go w/ [facility]. CM completed ULTC-100. CM spoke w/ Nathalia at [facility] and they are willing to accept pt. CM to follow. Date Signed: 02/16/2017 05:16 PM Electronically Signed By:PAMELA Medellin
--- NOTE | 2017-02-16 17:24 | SOAPPROG ---
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 Markedly pancytopenic Has been placed on G-CSF SQ QD, which can take time to respond to Tx, especially with compromised normal Myeloid precursors in marrow. I doubt that she will recover sufficiently to continue with further active Tx (with Decitabine). 2.) Appreciate ID input. IV acyclovir has been added . Antibiotic regimen has been changed to Ceftriaxone, Metronidazole, and Fluconazole. 3.) Continue analgesics 4.) Sinus Tachy noted. 5.) Both allopurinol and colchicine can suppress the marrow. Consider if either or both could be discontinued. 6.) Would avoid TPN and not a candidate for placement of NGT given her degree of pharyngitis sx. 7.) CT scans shows no intracranial bleed or other acute pathology. 8.) Discharge considerations: I spoke with Sourav's daughter at length out of the patient room to inform her of the very poor prognosis and the need to move from plans for active therapy to a strictly comfort measures/palliative approach , recognizing a very short prognosis. Plans for [facility] transfer noted. Sourav would like to hear from Dr. Navarro as to her situation, options, prognosis. At this time Dr. Navarro is scheduled to cover inhospital rounds this weekend. I will alert him as to her situation. 9.) Hypokalemia- replete and recheck. 10.) Hypernatremia- will change from IV NS to IVF with D5 instead. It appears that several meds are being given IV with NS. Plan: See above discussion. Likely transfer to [facility] in the next few days. 02/16/17 17:24 Subjective: Pt rested better and was alert and conversant this AM. Now she is fairly somnolent but arousable . She reports good symptom control this afternoon. Her daughter, Kaleigh is at the bedside. Objective: Chronically ill appearing WF who is in NAD. She is upright and slumped forward VSS, afebrile HEENT- anicteric, oral mucosa not easily visualized Neck- supple Chest- upper airway rhonchi- bilat CVS- RSR, distant HS ABD- soft, NT, BS+ EXT- L knee is bandaged/ NT Labs as noted here ( NO CBC today). K+ 3.2 Vital Signs Temp Pulse Resp BP Pulse Ox 36.1 C 101 H 20 128/92 H 96 02/16/17 14:51 02/16/17 14:51 02/16/17 14:51 02/16/17 14:51 02/16/17 14:51 Laboratory Results 02/16/17 10:30 02/15/17 02/16/17 02/17/17 05:59 05:59 05:59 Intake Total 100 975 420 Output Total 702 2550 Balance -602 -1575 420 PT 17.0 SEC (12.0-15.0) H 02/07/17 18:15 INR 1.39 (0.83-1.16) H 02/07/17 18:15 ICD10 Worksheet Patient Problems: Problems Problem Status Onset Candidiasis Acute Cellulitis Acute Fever Acute Palliative care encounter Acute CHF (congestive heart failure) Acute Dehydration Acute Elevated brain natriuretic peptide (BNP) level Acute Elevated serum creatinine Acute Weakness Acute
[2017-02-16] MEDS: CHOLECALCIFEROL VIT D3 1,000 UNITS TAB PO SCH (18:05)
[2017-02-16] MEDS: AMITRIPTYLINE HCL 25 MG TAB PO SCH (20:42)
[2017-02-16] MEDS: ATORVASTATIN CALCIUM 20 MG TAB PO SCH (20:43)
[2017-02-16 21:54] LABS: POTASSIUM 3.1 mEq/L (3.5-5.2)
[2017-02-17] MEDS: ACYCLOVIR IV SCH ×3 (01:43→17:16)
[2017-02-17] MEDS: D5W IV SCH ×3 (01:43→17:16)
[2017-02-17 05:41] LABS: ANION GAP 8 mEq/L (8-16); CALCIUM 7.4 mg/dL (8.5-10.4); CARBON DIOXIDE 38 mEq/l (22-31); CHLORIDE 104 mEq/L (97-110); CREATININE 0.7 mg/dL (0.6-1.0); GLOMERULAR FILTRATION RATE > 60; GLUCOSE 90 mg/dL (70-100); POTASSIUM 3.2 mEq/L (3.5-5.2); SODIUM 150 mEq/L (134-144)
[2017-02-17] MEDS ORDERED: POTASSIUM CL 10 MEQ TAB PO ONE (06:17)
[2017-02-17] MEDS: IBUPROFEN 600 MG TAB PO PRN ×3 (06:40→21:18)
[2017-02-17] MEDS: ALLOPURINOL 100 MG TAB PO SCH (08:18)
[2017-02-17] MEDS: VITAMIN B COMPLEX 1 EA CAP/TAB PO SCH (08:18)
[2017-02-17] MEDS: CARVEDILOL 6.25 MG TAB PO SCH ×2 (08:18→17:15)
[2017-02-17] MEDS: predniSONE 5 MG TAB PO SCH (08:18)
[2017-02-17] MEDS: FAMOTIDINE 20 MG/NACL 50 ML IV SCH ×2 (08:19→21:18)
[2017-02-17] MEDS: SACUBITRIL/VALSARTAN 24/26MG 1 EA TAB PO SCH (08:25)
[2017-02-17] MEDS: FLUCONAZOLE/NaCl 100 ML IV SCH (08:55)
[2017-02-17] MEDS: FILGRASTIM-SNDZ 480 MCG/0.8 ML SYR SC SCH (08:58)
[2017-02-17] MEDS ORDERED: GLYCOPYRROLATE 0.2 MG/1 ML VIAL IVP/IM PRN (09:44)
--- NOTE | 2017-02-17 10:24 | HOSPPROG ---
Hospitalist Progress Note Assessment/Plan: #Severe mucositis: HSV, wyatt. Change fluconazole to oral. Cont Acyclovir. 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 Multifactorial with hypernatremia, opioids and acute illnesses -CTA, CTH negative 02/14 -Na improved to 148 today -moaning likely due to agitation, not pain; stop morphine, decrease opioid frequency. Trial heating pad -trial Zydis if can tolerate PO. If not, low-dose Haldol IV #Hypernatremia: #Acute hypoxic resp failure: due to PNA, IVFs. Hold IVFs for now. Gentle diuresis #Systolic HF: EF 28%, no WMA on recent TTE. 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 Reviewed with Dr. Hendrickson. Prognosis is a few months without chemo. I talked with daughter (MDPOA) about goals today. -Palliative care to consult today #Pancytopenia: Filgrastim #Protein caloric malnutrition: not good candidate for feeding tube with mucositis nor TPN given risks of bacteremia #Tachycardia: multifactorial with agitation. Improved with resumption of Coreg #Diet: ADAT. #DVT ppx: SCDs #Goals: daughter agrees with NH with hospice. Place on comfort measure here. Will DC meds that are not focused on her comfort Objective: Vital Signs Temp Pulse Resp BP Pulse Ox 35.7 C L 102 H 17 126/83 H 98 02/17/17 07:22 02/17/17 08:18 02/17/17 07:22 02/17/17 08:18 02/17/17 07:22 Laboratory Results 02/16/17 05:50 02/17/17 05:10 02/16/17 02/17/17 02/18/17 05:59 05:59 05:59 Intake Total 975 770 Output Total 2550 150 Balance -1575 620 PT 17.0 SEC (12.0-15.0) H 02/07/17 18:15 INR 1.39 (0.83-1.16) H 02/07/17 18:15 ICD10 Worksheet Patient Problems: Problems Problem Status Onset Candidiasis Acute Cellulitis Acute Fever Acute Palliative care encounter Acute CHF (congestive heart failure) Acute Dehydration Acute Elevated brain natriuretic peptide (BNP) level Acute Elevated serum creatinine Acute Weakness Acute
[2017-02-17] MEDS: FUROSEMIDE 20 MG TAB PO SCH (10:56)
[2017-02-17] MEDS: FUROSEMIDE 20 MG/2 ML VIAL IVP SCH (10:59)
--- NOTE | 2017-02-17 12:27 | SOAPPROG ---
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 Markedly pancytopenic Has been placed on G-CSF SQ QD, which can take time to respond to Tx, especially with compromised normal Myeloid precursors in marrow. I doubt that she will recover sufficiently to continue with further active Tx (with Decitabine). 2.) Appreciate ID input. IV acyclovir has been added . Antibiotic regimen has been changed to Ceftriaxone, Metronidazole, and Fluconazole. 3.) Continue analgesics 4.) Sinus Tachy noted. 5.) Both allopurinol and colchicine can suppress the marrow. Consider if either or both could be discontinued. 6.) Would avoid TPN and not a candidate for placement of NGT given her degree of pharyngitis sx. 7.) CT scans shows no intracranial bleed or other acute pathology. 8.) Discharge considerations: I spoke with Sourav's daughter at length out of the patient room to inform her of the very poor prognosis and the need to move from plans for active therapy to a strictly comfort measures/palliative approach , recognizing a very short prognosis. Plans for [facility] transfer noted. Sourav would like to hear from Dr. Navarro as to her situation, options, prognosis. At this time Dr. Navarro is scheduled to cover inhospital rounds this weekend. I will alert him as to her situation. 9.) Hypokalemia- replete and recheck. 10.) Hypernatremia- will change from IV NS to IVF with D5 instead. It appears that several meds are being given IV with NS. Plan: 02/17/17 12:26 Objective: Vital Signs Temp Pulse Resp BP Pulse Ox 35.7 C L 102 H 17 126/83 H 98 02/17/17 07:22 02/17/17 08:18 02/17/17 07:22 02/17/17 08:18 02/17/17 07:22 Laboratory Results 02/16/17 05:50 02/17/17 05:10 02/16/17 02/17/17 02/18/17 05:59 05:59 05:59 Intake Total 975 770 Output Total 2550 150 Balance -1575 620 PT 17.0 SEC (12.0-15.0) H 02/07/17 18:15 INR 1.39 (0.83-1.16) H 02/07/17 18:15 ICD10 Worksheet Patient Problems: Problems Problem Status Onset Elevated serum creatinine Acute Dehydration Acute Elevated brain natriuretic peptide (BNP) level Acute CHF (congestive heart failure) Acute Weakness Acute Fever Acute Candidiasis Acute Cellulitis Acute Palliative care encounter Acute
--- NOTE | 2017-02-17 13:40 | GPROG ---
[f rep st] PROGRESS NOTE I had a family meeting with the patient and her daughter today. The patient has chronic myelomonocyt ic leukemia-1. She has had 2 rounds of decitabine and has been admitted to [facility] on several occasions. Today when I see her, she has had a white count of 1.83, hemoglobin of 8.1, and a platelet count of 35,000. 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 She has had a total of 2 units of blood and 1 unit of platelets apparently in the last few weeks. She is isra y debilitated and has trouble ambulating, and prior to this whole illness, was living at home, but he r daughter was keeping close tabs on her. The question is today what has been her understanding of h er illness and what is her prognosis for this disease. So I spent the better course of an hour to thelma ur and a half reviewing her records and all the communication with Dr. Dorman and the analysis here i [facility] [place], and I shared with the patient that the prognosis for this disease is incurable. I explain ed that about a third of patients respond to treatment with decitabine, that typically survivals are between 6 months and 18 months, and in her case, given her performance status and her general weaknes s, the question to be answered is, is continued treatment worthwhile for her. It really is hard with this disease to know when to stop treatment. Usually, though, we recommend 4-6 months, but her clin ical course over the last 2 months has been downhill. She will be moving to a usp, and so w mandeep I have asked her to consider thinking about is whether she thinks that the toxicity that is invol estella in the therapy is worth it on the chance that she might get better, or whether she should just go focus on best supportive care with transfusions. The third alternative, of course, is to discontinu e treatment. It is clear that the patient is in some denial. I spoke to her. Many of the questions , I asked what she knew about her illness, what she understood about the benefits of treatment, and w hat she understood about the prognosis, and while she clearly understood that this disease is, in her words, "fatal," she did not understand what the prognosis was. She also did not understand what the benefit of treatment was. So, when she leaves here to go to the [facility] facility, she will have a followup visit with doctor, which I believe will be mainly for alf type care. She will follow up with Dr. Navarro as an outpatient, and then consider how she wants to be cared for in the [facility]. /[id number]/MODL
--- NOTE | 2017-02-17 17:09 | ASMTCMCOM ---
CM Note CM Note Notes: Reviewed chart, spoke w/ MIGUEL Rodriguez and dghtr Kaleigh re: d/c poc, pt's progress. Dghtr Kaleigh requesting pt go to [facility]) vs [facility] on d/c, d/t high private pay costs at [facility]. Call placed to Nathalia at to confirm acceptance. Per Nathalia, pt has been accepted. LT Medicaid is in place; ULTC-100 still needs to be signed by RN and faxed for medical clearance/authorization. Dghtr requesting a Financial POA form from hospital to transfer assignment of bank accts from pt to her. Letter of pt's medical decline provided by Dr. Cummings for bank; letter given to dghtr. Discussed Financial POA form w/ [facility]ORO and other CM's, all unaware of a hospital approved document. Pt is also not in a place mentally to sign legal forms at this time. Update provided to dghtr. CM will cont to follow. Date Signed: 02/17/2017 05:08 PM Electronically Signed By:Jenni Thomas RN
[2017-02-17] MEDS: AMITRIPTYLINE HCL 25 MG TAB PO SCH (21:18)
[2017-02-17] MEDS: HYDROCODONE/APAP 5/325 TAB PO PRN (23:01)
[2017-02-18] MEDS: ACYCLOVIR IV SCH ×3 (01:46→18:21)
[2017-02-18] MEDS: D5W IV SCH ×3 (01:46→18:21)
[2017-02-18] MEDS: HYDROCODONE/APAP 5/325 TAB PO PRN ×3 (06:17→18:20)
[2017-02-18] MEDS ORDERED: PHENOL 177 ML THROAT SPRAY PO PRN (10:13)
[2017-02-18] MEDS: FILGRASTIM-SNDZ 480 MCG/0.8 ML SYR SC SCH (10:37)
[2017-02-18] MEDS: IBUPROFEN 600 MG TAB PO PRN ×2 (10:38→16:42)
[2017-02-18] MEDS: FAMOTIDINE 20 MG TAB PO SCH ×2 (10:38→20:04)
[2017-02-18] MEDS: LIDOCAINE 2% VISCOUS 15 ML UDCUP PO PRN ×2 (10:38→16:46)
[2017-02-18] MEDS: CEPACOL LOZENGE PO PRN ×2 (10:38→12:10)
[2017-02-18] MEDS: FLUCONAZOLE 100 MG TAB PO SCH (10:39)
[2017-02-18] MEDS: FUROSEMIDE 20 MG TAB PO SCH (10:39)
[2017-02-18] MEDS: CARVEDILOL 6.25 MG TAB PO SCH ×2 (10:39→18:21)
[2017-02-18] MEDS: FAMOTIDINE 20 MG/NACL 50 ML IV SCH (10:40)
[2017-02-18] MEDS: predniSONE 5 MG TAB PO SCH (10:40)
[2017-02-18 11:32] LABS: ANION GAP 10 mEq/L (8-16); CALCIUM 7.5 mg/dL (8.5-10.4); CARBON DIOXIDE 35 mEq/l (22-31); CHLORIDE 102 mEq/L (97-110); CREATININE 0.8 mg/dL (0.6-1.0); GLOMERULAR FILTRATION RATE > 60; GLUCOSE 122 mg/dL (70-100); POTASSIUM 3.2 mEq/L (3.5-5.2); SODIUM 147 mEq/L (134-144)
[2017-02-18] MEDS ORDERED: POTASSIUM CL 20 MEQ TAB PO ONE ×2 (12:01→16:45)
[2017-02-18] MEDS: CARBAMIDE PEROXIDE 15 ML BOTTLE LEFTEAR SCH ×2 (12:10→20:12)
--- NOTE | 2017-02-18 13:30 | HOSPPROG ---
Hospitalist Progress Note Assessment/Plan: #Severe mucositis: HSV, wyatt. Change fluconazole to oral. Cont Acyclovir. Day 6/7 #Ear pain: no e/o ulcerations. May be related to HSV?? Trial capsaicin cream along jaw line. Add Neurontin #Neutropenic fever: resolved. #Aspiration PNA: completed full course abx #Acute toxic/metabolic encephalopathy: resolved. #Hypernatremia: improving #Acute hypoxic resp failure: due to PNA, IVFs. Hold IVFs for now. Gentle diuresis #Systolic HF: EF 28%, no WMA on recent TTE. 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 Reviewed with Dr. Hendrickson. Prognosis is a few months without chemo. I talked with daughter (MDPLES) about goals today. #Pancytopenia: Filgrastim #Protein caloric malnutrition: not good candidate for feeding tube with mucositis nor TPN given risks of bacteremia #Tachycardia: multifactorial with agitation. Improved with resumption of Coreg #Diet: ADAT. #DVT ppx: SCDs #Goals: daughter agrees with [facility] with hospice. She wants to tour [facility] today. Hope to DC tomorrow with hospice. Subjective: left ear pain today Objective: Vital Signs Temp Pulse Resp BP Pulse Ox 35.7 C L 102 H 17 126/83 H 98 02/17/17 07:22 02/17/17 17:15 02/17/17 07:22 02/17/17 17:15 02/17/17 07:22 Laboratory Results 02/16/17 05:50 02/18/17 11:00 02/17/17 02/18/17 02/19/17 05:59 05:59 05:59 Intake Total 770 800 Output Total 150 200 Balance 620 600 PT 17.0 SEC (12.0-15.0) H 02/07/17 18:15 INR 1.39 (0.83-1.16) H 02/07/17 18:15 - Physical Exam Constitutional: no apparent distress Eyes: PERRL Ears, Nose, Mouth, Throat: other (left ear with significant cerumen. No visible ulcerations. TM clear. Oral ulcers minimal) Cardiovascular: edema (trace LE edema) Respiratory: no respiratory distress Gastrointestinal: normoactive bowel sounds Genitourinary: no bladder fullness Skin: warm Musculoskeletal: full muscle strength Neurologic: AAOx3, CN II-XII Intact Psychiatric: interacting appropriately ICD10 Worksheet Patient Problems: Problems Problem Status Onset Candidiasis Acute Cellulitis Acute Fever Acute Palliative care encounter Acute CHF (congestive heart failure) Acute Dehydration Acute Elevated brain natriuretic peptide (BNP) level Acute Elevated serum creatinine Acute Weakness Acute
[2017-02-18] MEDS: GABAPENTIN 300 MG CAP PO SCH (15:28)
[2017-02-18] MEDS: CAPSAICIN 0.025% CREAM TP SCH ×2 (16:37→20:12)
--- NOTE | 2017-02-18 16:54 | ASMTCMCOM ---
CM Note CM Note Notes: Reviewed chart re: pt's progress. Per MD notes, pt not responding to chemo, prognosis remains poor. Dghtr open to hospice; went to [facility] today. Met w/ dghtr to answer several questions regarding LTC and next steps in process. ULTC-100 completed online, faxed manually to [facility]; awaiting response. ULTC-100 placed in chart. Spoke w/ Nathalia at ; Nathalia to call [facility] about pt's hospice needs and d/c plan. Pt to likely d/c Mon 02/19, if response received from [facility]. CM will cont to follow. Date Signed: 02/18/2017 04:52 PM Electronically Signed By:Jenni Thomas RN
[2017-02-18] MEDS: AMITRIPTYLINE HCL 25 MG TAB PO SCH (20:04)
[2017-02-19] MEDS: HYDROCODONE/APAP 5/325 TAB PO PRN ×4 (01:42→20:40)
[2017-02-19] MEDS: D5W IV SCH ×3 (01:43→18:03)
[2017-02-19] MEDS: ACYCLOVIR IV SCH ×3 (01:43→18:03)
[2017-02-19] MEDS: CARBAMIDE PEROXIDE 15 ML BOTTLE LEFTEAR SCH ×2 (07:46→20:41)
[2017-02-19] MEDS: CAPSAICIN 0.025% CREAM TP SCH ×3 (07:46→20:41)
[2017-02-19] MEDS: predniSONE 5 MG TAB PO SCH (09:15)
[2017-02-19] MEDS: FUROSEMIDE 20 MG TAB PO SCH ×2 (09:15→15:30)
[2017-02-19] MEDS: CARVEDILOL 6.25 MG TAB PO SCH ×2 (09:16→16:57)
[2017-02-19] MEDS: FAMOTIDINE 20 MG TAB PO SCH ×2 (09:16→20:40)
[2017-02-19] MEDS: GABAPENTIN 300 MG CAP PO SCH (09:16)
[2017-02-19] MEDS: FLUCONAZOLE 100 MG TAB PO SCH (09:16)
[2017-02-19] MEDS: IBUPROFEN 600 MG TAB PO PRN ×3 (09:21→22:05)
[2017-02-19] MEDS: FILGRASTIM-SNDZ 480 MCG/0.8 ML SYR SC SCH (09:22)
[2017-02-19] MEDS: CEPACOL LOZENGE PO PRN ×2 (09:23→22:05)
--- NOTE | 2017-02-19 10:01 | SOAPPROG ---
SOAP Progress Note Assessment/Plan: Assessment: 1.) CMML- on Decitabine Cycle 2, Day 29. Markedly pancytopenic Has been placed on G-CSF SQ QD and is responding with WBC 1.8. I spoke to her over the weekend about her prognosis.No need for TXN. Going to a SNF post discharge. Plan: 02/17/17 12:26 02/19/17 10:01 02/19/17 10:02 Subjective: Sourav is a 76 yo F with CMMoL-1 S/P Decitabine admitted with asthenia. She is a little better today. No fever. Objective: Vital Signs Temp Pulse Resp BP Pulse Ox 36.7 C 97 20 128/73 H 90 L 02/19/17 07:33 02/19/17 07:33 02/19/17 07:33 02/19/17 07:33 02/19/17 07:33 Laboratory Results 02/16/17 05:50 02/18/17 11:00 02/18/17 02/19/17 02/20/17 05:59 05:59 05:59 Intake Total 800 240 Output Total 200 Balance 600 240 PT 17.0 SEC (12.0-15.0) H 02/07/17 18:15 INR 1.39 (0.83-1.16) H 02/07/17 18:15 lungs clear. CVS neg ICD10 Worksheet Patient Problems: Problems Problem Status Onset Candidiasis Acute Cellulitis Acute Fever Acute Palliative care encounter Acute CHF (congestive heart failure) Acute Dehydration Acute Elevated brain natriuretic peptide (BNP) level Acute Elevated serum creatinine Acute Weakness Acute
[2017-02-19] MEDS ORDERED: POTASSIUM CL 20 MEQ/15 ML UDCUP PO ONE (10:06)
--- NOTE | 2017-02-19 10:11 | HOSPPROG ---
Hospitalist Progress Note Assessment/Plan: #Severe mucositis: HSV, wyatt. Completed 7 days of fluconazole, Acyclovir today #Hypokalemia: repleted #Ear pain: no e/o ulcerations. May be related to HSV?? Improved with capsaicin cream along jaw line and low-dose Neurontin #Neutropenic fever: resolved. #Aspiration PNA: completed full course abx #Acute toxic/metabolic encephalopathy: resolved. #Hypernatremia: improving #Acute hypoxic resp failure: due to PNA, IVFs. Lasix 20mg BID #Systolic HF: EF 28%, no WMA on recent TTE. 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 Reviewed with Dr. Hendrickson. Prognosis is a few months without chemo. I talked with daughter (OWEN) about goals today. #Pancytopenia: due to chemo #Protein caloric malnutrition: not good candidate for feeding tube with mucositis nor TPN given risks of bacteremia #Tachycardia: multifactorial with agitation. Improved with resumption of Coreg #Diet: ADAT. #DVT ppx: SCDs #Goals: plan for DC to [facility] with Hospice, awaiting approval. Will continue only those meds warranted for comfort. Subjective: ear pain improved. No SOB Objective: Vital Signs Temp Pulse Resp BP Pulse Ox 36.7 C 97 20 128/73 H 90 L 02/19/17 07:33 02/19/17 07:33 02/19/17 07:33 02/19/17 07:33 02/19/17 07:33 Laboratory Results 02/16/17 05:50 02/18/17 11:00 02/18/17 02/19/17 02/20/17 05:59 05:59 05:59 Intake Total 800 240 Output Total 200 Balance 600 240 PT 17.0 SEC (12.0-15.0) H 02/07/17 18:15 INR 1.39 (0.83-1.16) H 02/07/17 18:15 - Physical Exam Constitutional: no apparent distress Eyes: PERRL Ears, Nose, Mouth, Throat: moist mucous membranes, other (buccal ulcers minimal. Left ear with cerumen, no ulcers) Cardiovascular: edema (+ 1 edema to ankle, BL legs) Respiratory: no respiratory distress Gastrointestinal: normoactive bowel sounds Genitourinary: no bladder fullness Skin: warm Musculoskeletal: full muscle strength Neurologic: AAOx3, CN II-XII Intact Psychiatric: interacting appropriately ICD10 Worksheet Patient Problems: Problems Problem Status Onset Candidiasis Acute Cellulitis Acute Fever Acute Palliative care encounter Acute CHF (congestive heart failure) Acute Dehydration Acute Elevated brain natriuretic peptide (BNP) level Acute Elevated serum creatinine Acute Weakness Acute
--- NOTE | 2017-02-19 15:15 | ASMTCMCOM ---
CM Note CM Note Notes: 02/19/2017 Case Management Note Called Du at [facility] ([phone]) to check on ULTC 100 status. Per Du application not received until 02/18/2017 at 1708. Nelli Ludwig [phone] to assess pt for [facility] by Sunday02/21/2017. Left vm with Nelli Ludwig requesting approximate time and date of assessment. Nelli Ludwig will have until Sunday02/23/2017 to compile report for ULTC 100 assessment. [facility] willing to accept pt pending outcome of ULTC assessment. Case Management to follow. Date Signed: 02/19/2017 03:15 PM Electronically Signed By:Adela Moay RN
[2017-02-19] MEDS: AMITRIPTYLINE HCL 25 MG TAB PO SCH (20:40)
[2017-02-20] MEDS: HYDROCODONE/APAP 5/325 TAB PO PRN ×3 (05:33→18:25)
[2017-02-20] MEDS: CEPACOL LOZENGE PO PRN ×2 (05:34→21:07)
[2017-02-20] MEDS: IBUPROFEN 600 MG TAB PO PRN ×2 (08:24→16:25)
[2017-02-20] MEDS: predniSONE 5 MG TAB PO SCH (08:24)
[2017-02-20] MEDS: FAMOTIDINE 20 MG TAB PO SCH ×2 (08:25→21:06)
[2017-02-20] MEDS: GABAPENTIN 300 MG CAP PO SCH ×2 (08:25→21:06)
[2017-02-20] MEDS: FILGRASTIM-SNDZ 480 MCG/0.8 ML SYR SC SCH (08:25)
[2017-02-20] MEDS: CARVEDILOL 6.25 MG TAB PO SCH ×2 (09:53→18:28)
[2017-02-20] MEDS: FUROSEMIDE 20 MG TAB PO SCH ×2 (09:54→15:54)
[2017-02-20] MEDS: CARBAMIDE PEROXIDE 15 ML BOTTLE LEFTEAR SCH ×2 (09:54→21:06)
[2017-02-20] MEDS: CAPSAICIN 0.025% CREAM TP SCH ×3 (09:54→21:06)
--- NOTE | 2017-02-20 10:01 | SOAPPROG ---
SOAP Progress Note Assessment/Plan: Assessment: 1.) CMML- on Decitabine Cycle 2, Day 30. Pancytopenia is improving. Has been placed on G-CSF SQ QD and is responding with WBC 1.8. I spoke to her over the weekend about her prognosis. No need for TXN. Going to a SNF post discharge. Needs CBC to decide when to stop G. Plan: 02/17/17 12:26 02/19/17 10:01 02/19/17 10:02 02/20/17 10:02 Subjective: Sourav is a 76 yo F with CMMoL-1 S/P Decitabine admitted with asthenia. She is a little better today. No fever. Objective: Vital Signs Temp Pulse Resp BP Pulse Ox 36.7 C 86 18 109/71 96 02/19/17 20:00 02/19/17 20:00 02/19/17 20:00 02/20/17 07:59 02/19/17 20:00 Laboratory Results 02/16/17 05:50 02/18/17 11:00 02/19/17 02/20/17 02/21/17 05:59 05:59 05:59 Intake Total 390 Output Total 200 Balance 190 PT 17.0 SEC (12.0-15.0) H 02/07/17 18:15 INR 1.39 (0.83-1.16) H 02/07/17 18:15 ICD10 Worksheet Patient Problems: Problems Problem Status Onset Candidiasis Acute Cellulitis Acute Fever Acute Palliative care encounter Acute CHF (congestive heart failure) Acute Dehydration Acute Elevated brain natriuretic peptide (BNP) level Acute Elevated serum creatinine Acute Weakness Acute
--- NOTE | 2017-02-20 13:35 | WOCRNPDOC ---
WOCRN Advanced Assessment Note - Skin Integrity Problem, Advanced Assess Left Knee Abrasion Dressing Type: Hydrocolloid (Replicare) Dressing Description: Intact Exudate Amount: Minimal Exudate Color: Brown Exudate Characteristic(s): Serosanguinous Integumentary Issue Intervention: Dressing Changed, Hydrogel Applied Anisha Wound Tissue: Macerated (mild, along proximal edge), Intact Anisha Wound Swelling: None Wound Bed Color: Black, Brown Wound Bed Constitution: Mixed Loose & Adhered Slough/Eschar Wound Edges: Epithelizing Site Odor: None Site Measurement - Head-to-Toe Length X Width X Depth (cm): 2.5cmx2.8cmx eschar Skin Integrity Problem Comment: Wound dimensions continue to decrease, and epithelialization is present along margins. Eschar in wound bed is softening from hydrogel and hydrocolloid, but remains too tender to mechanically debride. Anisha-wound skin is intact w/ no associated swelling evident. Given the progress this wound has made w/ the current treatment, it is prudent to continue until the site is healed. Patient's daughter Kaleigh relayed that her mom might be transferring to SNF this week, so discharge plans have been updated to include wound care.
--- NOTE | 2017-02-20 17:00 | HOSPPROG ---
Hospitalist Progress Note Assessment/Plan: 76 yo with PMH of CML, poor px, multiple complications related to same. # neuropathy: patient with left facial neuropathy that sounds most c/w trigeminal neuralgia, had mucositis previously that has significantly improved but now just burning pain from ear to mouth on the left, no visible lesions. Some improvement with neurontin and norco, will continue to uptitrate-- increasing gabapentin to 300 tid. . # mucositis: no longer any obvious oral lesions, has been treated with fluconazole and yesterday received IV acyclovir as well. Lower suspicion for infectious etiology as above. Start magic mouthwash and continue gabapentin for presumed trigeminal neuralgia. # neutropenic fever: resolved, currently on filgastrim, will check CBC in am # aspiration pneumonia: resolved, off of abx at this time # acute encephalopathy: resolved, presumably toxic metabolic encephalopathy in setting of above # acute hypoxic respiratory failure: currently with saturations in low 90s on 3- 4L of O2, related to aspiration, atelectasis, underlying chronic CHF. Likely will need to dc on o2. # chronic systolic heart failure: with baseline EF of 25%, does not appear significantly decompensated at this time. Continue low dose lasix. # CML: with poor prognosis and sxs largely of fatigue/FTT. At this time patient and family are looking into option of hospice which is being arranged through CM. # pancytopenia: in setting of CML/chemo, counts have been trending up, rechecking in am # protein calorie malnutrition: with continued poor po intake largely related to mouth/face pain as above, continue to push po # Dispo: dc to [facility] with hospice likely this week Patient new to my care. Old records reviewed and summarized as above. Care plan reviewed with CM and patients family present at bedside. Subjective: no significant overnight events, patient notes continued pain in her mouth and face from ear to cheek Objective: Vital Signs Temp Pulse Resp BP Pulse Ox 36.7 C 86 18 109/71 96 02/19/17 20:00 02/19/17 20:00 02/19/17 20:00 02/20/17 07:59 02/19/17 20:00 Laboratory Results 02/16/17 05:50 02/18/17 11:00 02/19/17 02/20/17 02/21/17 05:59 05:59 05:59 Intake Total 390 480 Output Total 200 500 Balance 190 -20 PT 17.0 SEC (12.0-15.0) H 02/07/17 18:15 INR 1.39 (0.83-1.16) H 02/07/17 18:15 awake alert chronically ill appearing anicteric op clear, no oral lesions, no posterior pharyngeal lesions, exquisite TTP on left cheek rrr no mrg cta b soft nt nd no cce warm dry well perfused oriented appropriate ICD10 Worksheet Patient Problems: Problems Problem Status Onset Elevated serum creatinine Acute Dehydration Acute Elevated brain natriuretic peptide (BNP) level Acute CHF (congestive heart failure) Acute Weakness Acute Fever Acute Candidiasis Acute Cellulitis Acute Palliative care encounter Acute
[2017-02-20] MEDS ORDERED: MBX SOLN 30 ML BOTTLE PO PRN (17:03)
[2017-02-20] MEDS: AMITRIPTYLINE HCL 25 MG TAB PO SCH (21:06)
[2017-02-21 04:27] LABS: ABSOLUTE NRBC COUNT 0.11 10^3/uL (0-0.01); ADD DIFF? YES; ATYPICAL LYMPHOCYTE FLAG 0 (0-99); FRAGMENT RBC FLAG 0 (0-99); HEMATOCRIT 26.8 % (38.0-47.0); HEMOGLOBIN 8.3 g/dL (12.6-16.3); LIPEMIA HEMOLYSIS FLAG 80 (0-99); MEAN CELL HEMOGLOBIN 28.5 pg (27.9-34.1); MEAN CELL VOLUME 92.1 fL (81.5-99.8); MEAN PLATELET VOLUME 11.8 fL (8.7-11.7); PLATELET CLUMPS FLAG 20 (0-99); RED BLOOD CELL COUNT 2.91 10^6/uL (4.18-5.33); RED CELL DISTRIBUTION WIDTH 18.3 % (11.5-15.2)
[2017-02-21 04:31] LABS: ADD MORPH? NO; ADD SCAN? NO; LEFT SHIFT FLG 300 (0-99); NRBC-AUTO% 1.4 % (0.0-0.2); PLATELET COUNT 33 10^3/uL (150-400)
[2017-02-21 05:17] LABS: PLATELET ESTIMATE DECREASED (ADEQ); TOXIC GRANULATION PRESENT; TOXIC VACUOLIZATION PRESENT
[2017-02-21] MEDS: HYDROCODONE/APAP 5/325 TAB PO PRN ×2 (05:59→13:08)
[2017-02-21] MEDS: IBUPROFEN 600 MG TAB PO PRN ×2 (05:59→13:07)
[2017-02-21] MEDS: FAMOTIDINE 20 MG TAB PO SCH ×2 (09:40→20:43)
[2017-02-21] MEDS: CARVEDILOL 6.25 MG TAB PO SCH ×2 (09:40→18:22)
[2017-02-21] MEDS: predniSONE 5 MG TAB PO SCH (09:40)
[2017-02-21] MEDS: CAPSAICIN 0.025% CREAM TP SCH ×3 (09:41→21:30)
[2017-02-21] MEDS: GABAPENTIN 300 MG CAP PO SCH ×3 (09:41→21:30)
[2017-02-21] MEDS: FILGRASTIM-SNDZ 480 MCG/0.8 ML SYR SC SCH (09:41)
[2017-02-21] MEDS: FUROSEMIDE 20 MG TAB PO SCH ×2 (09:41→16:41)
[2017-02-21] MEDS: CARBAMIDE PEROXIDE 15 ML BOTTLE LEFTEAR SCH (09:41)
--- NOTE | 2017-02-21 13:45 | ASMTCMCOM ---
CM Note CM Note Notes: 02/21/2017 Case Management Note Met w/daughter Sayda and pt. Arranged for [facility] to come to pt room. Phone call from Nelli Ludwig [facility] bilingual case manager ([phone]) application approved and faxed to [facility]. Phone Call from Nathalia Mendoza, stated [facility] able to take pt today. Case Management d/c poc: To [facility] when medically stable. Case Management to notify [facility] to arrange transport at d/c. Date Signed: 02/21/2017 01:44 PM Electronically Signed By:Adela Moya RN
[2017-02-21] MEDS ORDERED: MAGNESIUM HYDROXIDE 30 ML UDCUP PO PRN (15:49)
[2017-02-21] MEDS ORDERED: LACTULOSE 20 GM/30 ML UDCUP PO PRN (15:49)
[2017-02-21] MEDS ORDERED: POLYETHYLENE GLYCOL 3350 17 GM PKT PO PRN (15:49)
--- NOTE | 2017-02-21 17:06 | HOSPPROG ---
Hospitalist Progress Note Assessment/Plan: 76 yo with PMH of CML, poor px, multiple complications related to same. # neuropathy: patient with left facial neuropathy that sounds most c/w trigeminal neuralgia, had mucositis previously that has significantly improved but now just burning pain from ear to mouth on the left, no visible lesions. Some improvement with neurontin and norco, will continue to uptitrate-- increased gabapentin to 300 tid. # mucositis: no longer any obvious oral lesions, has been treated with fluconazole and yesterday received IV acyclovir as well. Lower suspicion for infectious etiology as above. Start magic mouthwash and continue gabapentin for presumed trigeminal neuralgia. # neutropenic fever: resolved and WBC now in normal range, discontinued filgastrim # aspiration pneumonia: resolved, off of abx at this time # acute encephalopathy: resolved, presumably toxic metabolic encephalopathy in setting of above # acute hypoxic respiratory failure: currently with saturations in low 90s on 3- 4L of O2, related to aspiration, atelectasis, underlying chronic CHF. Likely will need to dc on o2. # chronic systolic heart failure: with baseline EF of 25%, does not appear significantly decompensated at this time. Continue low dose lasix. # CML: with poor prognosis and sxs largely of fatigue/FTT. At this time patient and family are looking into option of hospice which is being arranged through CM. # pancytopenia: in setting of CML/chemo, counts have been trending up, rechecking in am # protein calorie malnutrition: with continued poor po intake largely related to mouth/face pain as above, continue to push po # Dispo: dc to [facility] with hospice likely this week Care plan reviewed with CM and patients family present at bedside. Subjective: no significant overnight events, patient somnolent today and notes that her mouth Objective: Vital Signs Temp Pulse Resp BP Pulse Ox 36.6 C 90 16 110/56 L 96 02/21/17 16:00 02/21/17 16:00 02/21/17 16:00 02/21/17 16:00 02/21/17 16:00 Laboratory Results 02/21/17 03:36 02/18/17 11:00 02/20/17 02/21/17 02/22/17 05:59 05:59 05:59 Intake Total 390 800 Output Total 200 500 300 Balance 190 300 -300 PT 17.0 SEC (12.0-15.0) H 02/07/17 18:15 INR 1.39 (0.83-1.16) H 02/07/17 18:15 awake alert chronically ill appearing anicteric op clear, no oral lesions, no posterior pharyngeal lesions, exquisite TTP on left cheek rrr no mrg cta b soft nt nd no cce warm dry well perfused oriented appropriate ICD10 Worksheet Patient Problems: Problems Problem Status Onset Candidiasis Acute Cellulitis Acute Fever Acute Palliative care encounter Acute CHF (congestive heart failure) Acute Dehydration Acute Elevated brain natriuretic peptide (BNP) level Acute Elevated serum creatinine Acute Weakness Acute
[2017-02-21] MEDS: SENNOSIDES/DOCUSATE SODIUM TAB PO SCH (20:42)
[2017-02-21] MEDS: AMITRIPTYLINE HCL 25 MG TAB PO SCH (20:43)
[2017-02-22 03:24] LABS: ABSOLUTE NRBC COUNT 0.07 10^3/uL (0-0.01); ADD DIFF? YES; ADD MORPH? NO; ATYPICAL LYMPHOCYTE FLAG 0 (0-99); FRAGMENT RBC FLAG 0 (0-99); HEMATOCRIT 25.2 % (38.0-47.0); LIPEMIA HEMOLYSIS FLAG 80 (0-99); MEAN CELL HEMOGLOBIN 29.7 pg (27.9-34.1); MEAN CELL HEMOGLOBIN CONCENTR. 31.7 g/dL (32.4-36.7); MEAN CELL VOLUME 93.7 fL (81.5-99.8); MEAN PLATELET VOLUME 12.4 fL (8.7-11.7); NRBC-AUTO% 0.9 % (0.0-0.2); PLATELET CLUMPS FLAG 0 (0-99); RED BLOOD CELL COUNT 2.69 10^6/uL (4.18-5.33); RED CELL DISTRIBUTION WIDTH 18.2 % (11.5-15.2)
[2017-02-22 03:38] LABS: ADD SCAN? NO; LEFT SHIFT FLG 300 (0-99); PLATELET COUNT 34 10^3/uL (150-400)
[2017-02-22 05:31] LABS: PLATELET ESTIMATE DECREASED (ADEQ)
[2017-02-22 05:33] LABS: TOXIC GRANULATION PRESENT; TOXIC VACUOLIZATION PRESENT
[2017-02-22 08:43] VITALS: BP 124/67; PULSE 86; RESP 17; TEMP 98.4; O2SAT 100
--- NOTE | 2017-02-22 08:48 | SOAPPROG ---
SOAP Progress Note Assessment/Plan: Assessment: 1.) CMML- on Decitabine Cycle 2, Day 33. Pancytopenia is improving. WBC are up to normal off of G-CSF. No need for TXN. Going to a SNF post discharge. Plan: 02/17/17 12:26 02/19/17 10:01 02/19/17 10:02 02/20/17 10:02 02/22/17 08:47 Subjective: Sourav is a 76 yo F with CMMoL-1 S/P Decitabine admitted with asthenia. She is a little better today. No fever. counts are up. Objective: Vital Signs Temp Pulse Resp BP Pulse Ox 36.9 C 86 17 124/67 H 100 02/22/17 08:00 02/22/17 08:00 02/22/17 08:00 02/22/17 08:00 02/22/17 08:00 Laboratory Results 02/22/17 03:08 02/18/17 11:00 02/21/17 02/22/17 02/23/17 05:59 05:59 05:59 Intake Total 800 810 Output Total 500 1620 Balance 300 -810 PT 17.0 SEC (12.0-15.0) H 02/07/17 18:15 INR 1.39 (0.83-1.16) H 02/07/17 18:15 ICD10 Worksheet Patient Problems: Problems Problem Status Onset Elevated serum creatinine Acute Dehydration Acute Elevated brain natriuretic peptide (BNP) level Acute CHF (congestive heart failure) Acute Weakness Acute Fever Acute Candidiasis Acute Cellulitis Acute Palliative care encounter Acute
[2017-02-22] MEDS: SENNOSIDES/DOCUSATE SODIUM TAB PO SCH (10:05)
[2017-02-22] MEDS: CARVEDILOL 6.25 MG TAB PO SCH (10:05)
[2017-02-22] MEDS: GABAPENTIN 300 MG CAP PO SCH (10:05)
[2017-02-22] MEDS: FUROSEMIDE 20 MG TAB PO SCH ×2 (10:05→15:08)
[2017-02-22] MEDS: HYDROCODONE/APAP 5/325 TAB PO PRN (10:06)
[2017-02-22] MEDS: predniSONE 5 MG TAB PO SCH (10:06)
[2017-02-22] MEDS: FAMOTIDINE 20 MG TAB PO SCH (10:06)
[2017-02-22] MEDS: CAPSAICIN 0.025% CREAM TP SCH (10:07)
--- NOTE | 2017-02-22 12:05 | HOSPPROG ---
Hospitalist Progress Note Assessment/Plan: 76 yo with PMH of CML, poor px, multiple complications related to same. # neuropathy: patient with left facial neuropathy that sounds most c/w trigeminal neuralgia, continues to have severe stabbing facial pain in the distribution of CNV3. Has had some improvement with gabapentin but also significant associated somnolence. Will decrease gabapentin and start carbamazepine which has been shown to be more effective for TN. Possibly triggered by bout of HSV. # mucositis: no longer any obvious oral lesions, has been treated with fluconazole and yesterday received IV acyclovir as well. Lower suspicion for infectious etiology as above. Continue magic mouthwash and tx as above. # neutropenic fever: resolved and WBC now in normal range, discontinued filgastrim # aspiration pneumonia: resolved, off of abx at this time # acute encephalopathy: resolved, presumably toxic metabolic encephalopathy in setting of above. Patient again intermittently somnolent, possibly related to neurontin as above, but also query just disease progression. # acute hypoxic respiratory failure: currently with saturations in low 90s on 3- 4L of O2, related to aspiration, atelectasis, underlying chronic CHF. Likely will need to dc on o2. # chronic systolic heart failure: with baseline EF of 25%, does not appear significantly decompensated at this time. Continue low dose lasix. # CML: with poor prognosis and sxs largely of fatigue/FTT. At this time patient and family are looking into option of hospice and more specifically looking at home with hospice. # pancytopenia: in setting of CML/chemo, counts have been trending up, rechecking in am # protein calorie malnutrition: with continued poor po intake largely related to mouth/face pain as above, continue to push po # Dispo: dc to home with hospice likely this week Care plan reviewed with palliative care as well as patients daughter present at bedside. Subjective: no significant overnight events, patient very somnolent this am, arousable however, continues to have severe stabbing face pain shortly after eating Objective: Vital Signs Temp Pulse Resp BP Pulse Ox 36.9 C 86 17 124/67 H 100 02/22/17 08:00 02/22/17 08:00 02/22/17 08:00 02/22/17 08:00 02/22/17 08:00 Laboratory Results 02/22/17 03:08 02/18/17 11:00 02/21/17 02/22/17 02/23/17 05:59 05:59 05:59 Intake Total 800 810 Output Total 500 1620 Balance 300 -810 PT 17.0 SEC (12.0-15.0) H 02/07/17 18:15 INR 1.39 (0.83-1.16) H 02/07/17 18:15 awake alert chronically ill appearing anicteric op clear, no oral lesions, no posterior pharyngeal lesions, exquisite TTP on left cheek rrr no mrg cta b soft nt nd no cce warm dry well perfused oriented appropriate ICD10 Worksheet Patient Problems: Problems Problem Status Onset Candidiasis Acute Cellulitis Acute Fever Acute Palliative care encounter Acute CHF (congestive heart failure) Acute Dehydration Acute Elevated brain natriuretic peptide (BNP) level Acute Elevated serum creatinine Acute Weakness Acute
[2017-02-22] MEDS ORDERED: CARBAMAZEPINE 100 MG CHEWABLE TAB PO SCH (12:15)
--- NOTE | 2017-02-22 12:55 | WOCRNPDOC ---
WOCRN Advanced Assessment Note - Skin Integrity Problem, Advanced Assess Left Knee Abrasion Dressing Type: Hydrocolloid Dressing Description: Clean/Dry, Intact Exudate Amount: None Integumentary Issue Intervention: Dressing Changed Anisha Wound Tissue: Blanching, Ecchymotic, Erythema, Swollen (mild) Anisha Wound Swelling: Mild Wound Bed Color: Black Wound Bed Constitution: Stable Eschar Wound Edges: Well Defined Skin Integrity Problem Comment: Wound bed cleaned with NS and gauze. Stable base of black eschar still attached to wound bed. Site still too tender to to debride. Anisah wound edges remain redened and minimally swollen circumferentially but less so than my last encounter with this wound. Anisha wound skin prepped with skin prep, wound gel applied to wound bed and covered with a hydrocolloid. DC orders in place.
--- NOTE | 2017-02-22 13:48 | PDIAF ---
- Diagnosis Code Status: Do Not Resuscitate - Medication Management Discharge Medications: Medications to Continue on Transfer Cholecalciferol Vit D3 [Vitamin D3 (*)] 1,000 units PO DAILY18 #0 12/02/16 [ Last Taken 02/07/17] Vitamin B Complex [B Complex] 1 each PO DAILY 12/02/16 [Last Taken 02/07/17] Amitriptyline HCl [Elavil 50 mg (*)] 50 mg PO HS 01/26/17 [Last Taken 02/07/17] Atorvastatin Calcium [Lipitor 20 mg (*)] 20 mg PO HS 01/26/17 [Last Taken ] Famotidine [Pepcid 20 MG (*)] 20 mg PO BID 01/26/17 [Last Taken 02/07/17 09:00] Multivitamins [Multivitamin (*)] 1 each PO DAILY@12 01/26/17 [Last Taken ] Cammal-3 Fatty Acids [Fish Oil 1000 mg (*)] 1,000 mg PO DAILY 01/26/17 [Last Taken 02/07/17] Lidocaine 2% Viscous 5 ml PO QID PRN 02/07/17 [Last Taken 02/07/17] predniSONE 5 mg PO DAILY@02/07/17 [Last Taken 02/07/17] Benzocaine/Menthol 26/08 [Cepacol Lozenge] 1 ea PO PRN PRN lozenge 02/22/17 [ Last Taken Unknown] Capsaicin 0.025% 1 jered TP TID cream 02/22/17 [Last Taken Unknown] Carvedilol [Coreg (*)] 12.5 mg PO BIDMEAL tab 02/22/17 [Last Taken Unknown] Famotidine [Pepcid 20 MG (*)] 20 mg PO BID tab 02/22/17 [Last Taken Unknown] Furosemide [Lasix 20 MG (*)] 20 mg PO BID@0900,1500 tab 02/22/17 [Last Taken Unknown] Gabapentin [Neurontin 300 MG (*)] 300 mg PO HS cap 02/22/17 [Last Taken Unknown ] Hydrocodone/APAP 5/325 [Bristol 5/325 (*)] 1 tab PO Q6H PRN tab 02/22/17 [Last Taken Unknown] Ibuprofen [Motrin (*)] 600 mg PO Q6HRS PRN tab 02/22/17 [Last Taken Unknown] Mbx Soln;Maalox/Diphen/Lido [Maalox/Diphenhydramine/Lido] 5 ml PO PRN PRN bottle 02/22/17 [Last Taken Unknown] OLANZapine DISINTEGR [ZyPREXA ZYDIS (*)] 2.5 mg PO BID PRN tab 02/22/17 [Last Taken Unknown] Phenol [Chloraseptic spray (*)] 1 spray PO PRN PRN btl 02/22/17 [Last Taken Unknown] Polyethylene Glycol 3350 [Miralax 17 gm (*)] 17 gm PO DAILY PRN pkt 02/22/17 [ Last Taken Unknown] Sennosides/Docusate Sodium [Senokot-S] 1 - 2 tab PO BID tab 02/22/17 [Last Taken Unknown] carBAMazepine [TEGretol (*)] 100 mg PO BID tab.chew 02/22/17 [Last Taken Unknown] Discharge Medications: Refer to the Discharge Home Medication list for PRN reason. - Orders Services needed: Registered Nurse, Certified Superintendent Operations Division, Physical Therapy, Occupational Therapy Diet Recommendation: no restrictions on diet Diet Texture: Dysphagia 1 - Pureed, Thin Liquids, Meds Whole in Puree Additional: Patient has been having facial pain likely 2/2 trigeminal neuralgia. She has been started on neurontin and most recently tegretol for this. Those medicaitons can be discontinued in the next 2-3 days if they are not effective. She does respond to ibuprofen and norco for the pain. - Follow Up Care Current Providers and Referrals: Shai Navarro MD [Primary Care Provider] - As per Instructions
--- NOTE | 2017-02-22 13:48 | PDDCSUM ---
Discharge Summary Discharge Summary: Dates of service 02/07-02/22/17 consultations: oncology, ID, ENT Procedures performed: laryngoscopy, echo, chest/neck/head CT, head/neck CTA Discharge dx/hospital course: # neuropathy: patient with left facial neuropathy that sounds most c/w trigeminal neuralgia, continues to have severe stabbing facial pain in the distribution of CNV3. Has had some improvement with gabapentin but also significant associated somnolence. This occurred following severe mucositis with associated hsv. Will decrease gabapentin and start carbamazepine which has been shown to be more effective for TN, this will need to be followed at SNF. # mucositis: no longer any obvious oral lesions, has been treated with fluconazole and yesterday received IV acyclovir as well. Lower suspicion for infectious etiology as above. Continue magic mouthwash and tx as above. Was seen by ENT and s/p laryngoscopy showing findings c/w viral pharyngitis # neutropenic fever: resolved and WBC now in normal range, discontinued filgastrim # aspiration pneumonia: resolved, off of abx at this time # acute encephalopathy: has for the most part resolved, presumably toxic metabolic encephalopathy in setting of above. Patient remains quite somnolent but this seems to be more related to either medication side effect versus simply disease progression # acute hypoxic respiratory failure: currently with saturations in low 90s on 3- 4L of O2, related to aspiration, atelectasis, underlying chronic CHF. Likely will need to dc on o2. # chronic systolic heart failure: with baseline EF of 25%, does not appear significantly decompensated at this time. Continue low dose lasix. # CML: with poor prognosis and sxs largely of fatigue/FTT. At this time patient and family are looking into option of hospice and more specifically looking at home with hospice. # pancytopenia: in setting of CML/chemo, counts have been trending up, rechecking in am # protein calorie malnutrition: with continued poor po intake largely related to mouth/face pain as above, continue to push po Dispo: dc to [facility] with hospice f/u with hospice MD will need to monitor facial pain and adjust medications as needed > 35 min spent in dc of patient more than half in coordination of care
[2017-02-22] MEDS: IBUPROFEN 600 MG TAB PO PRN (13:56)
--- NOTE | 2017-02-22 14:33 | ASMTCMCOM ---
CM Note CM Note Notes: CM spoke w/ Jodi RN and Dr. Figueroa regarding d/c POC. Kaleigh, pts daughter requested to have [facility] come in this AM. Kaleigh was contemplating having pt home with hospice. Holly from [facility] in, this AM to meet w/ daughter and pt. Kaleigh decided to have pt d/c to [facility] and to have hospice following. CM spoke w/ Nathalia at [facility] to coordinate d/c. Pt will be transported via wheelchair. CM provided RN w/ phone number to give report to [facility]. CM faxed over d/c orders to both facilities. CM available for changes. Date Signed: 02/22/2017 02:32 PM Electronically Signed By:PAMELA Medellin
--- NOTE | 2017-02-22 16:50 | ASDISCHSUM ---
Discharge Information Plan Status:SNF Medically Cleared to Leave:02/22/2017 Discharge Date:02/22/2017 03:55 PM CM D/C Disposition:Hospice Home ADT D/C Disposition:[facility] Facility Projected Discharge Date:02/22/2017 11:00 AM Transportation at D/C:Wheelchair Van Discharge Delay Reason: Follow-Up Date:02/22/2017 11:00 AM Discharge Slot: Final Diagnosis: Placement Information Referral Type:*Hospice Referral ID:[id number] Provider [facility] Address 1:[address] [place] Address 2: City:[place] Selection Factors: State:[place] Referral Type:*Care Home/SNF Referral ID:[id number] Provider Name:[facility] Address 1:[address] Address 2: City:[place] Selection Factors: State:[place] Patient Contact Information Contact Name:WALKER Relationship:Daughter Address: Work Phone: City:[place] Alternate Phone: [facility]/Zip Code:[place] Email: Financial Information Financial Class:Medicare Advantage Plans Primary Plan Desc:[employer] [place]ICARE Primary Plan Number:[id number] Secondary Plan Desc:MED[place] Secondary Plan Number:[id number] Assessment Information [facility] Initial CM Assessment Living Arrangements What is your living Answers: Alone arrangement? Who do you live with? Type Of Residence What kind of residence do Answers: House you live in? Discharge Plan Comments Coordination Status Comments Notes: Chart reviewed and spoke w/ MIGUEL Tan, pt is a 76 y/o female admitted w/ a fever, left ear pain, neck pain and difficulty swallowing. Pt is a DNR. Pt lives alone in [place] and has a supportive daughter that lives in [place]. PT and speech are ordered, awaiting recommendations. Needs TBD at this time. CM to follow. Date Signed: 02/08/2017 02:41 PM Electronically Signed By:PAMELA Medellin [facility] CM Progress Note CM Note CM Note Notes: Reviewed chart re: d/c poc, pt's progress. Pt w/ neutropenic fever, pancytopenia, CMML. Pt's discharge needs remain TBD at this time. PT/[facility] pending. Pt has supportive family. CM will cont to follow. Date Signed: 02/10/2017 04:05 PM Electronically Signed By:Jenni Thomas RN [facility] CM Progress Note CM Note CM Note Notes: Chart reviewed, discussed patient status with nurse. Met with patient's daughter Sayda who reports mom lives independent in a senior housing complex in [place]. Sayda spends 80 percent of her time with the patient and has a partner and friends who also give support. Pt has experienced a recent fall, she has recieved chemo for about 2 mos. The patient is somulent during my visit. She has a severe case of thrush and had been medicated for pain. She has had a positive experience at [facility] in the past as well as [facility] services. Her dc needs are still TBD at this time. CM to follow. Date Signed: 02/12/2017 11:31 AM Electronically Signed By:Amber Davey RN BC CM Progress Note CM Note CM Note Notes: Patient discharge needs still TBD. Patients family attentive and at bedside. Patient still remains fairly sedated and it is not clear what her discharge needs will be. Case management will follow. Date Signed: 02/13/2017 05:54 PM Electronically Signed By:KARI Chew BC CM Progress Note CM Note CM Note Notes: Today Pt. is somewhat encephalopathic and appears to be in pain. RN aware and managing pain. Dr. Guerin is oncologist. Per RN, daughter Sayda is thinking about a Palliative consult should Pt. not improve. Per RN, Sayda lost her partner in May to colon cancer. Note [facility] is open for an RN. D/c plan TBD. Date Signed: 02/14/2017 04:47 PM Electronically Signed By:Marika Castillo LCSW [facility] CM Progress Note CM Note CM Note Notes: Pt will tx to PCU later today. Dr Hazel would like pt to have a hospice consult tomorrow. Jodi zayas palliative has a meeting with dtr tomorrow to discuss hospice vs palliative and asked that no agency be contacted until that meeting with dtr. C/M will continue to follow. Date Signed: 02/15/2017 04:24 PM Electronically Signed By:Milla Parks LCSW [facility] CM Progress Note CM Note CM Note Notes: Jodi from [facility] met w/ pt and daughter this morning. Family would like to pursue [facility]. CM made a referral to [facility]. [facility] was in this morning and met w/ pts daughter. [facility] does not think that pt is appropriate for inpatient hospice at this time but willing to follow pt once there is a dispo plan. Pts daughter is unable to care for pt at home 24hr a day. Daughter is interested in pursuing skilled terminal superintendent care. Referrals made to [facility], and to [facility]. Pt has been accepted to [facility]. Pt is interested in finding out the cost for private pay at [facility]. CM provided daughter w/ cost for [facility] per day. Daughter reports that she will most likely go w/ [facility]. CM completed ULTC-100. CM spoke w/ Nathalia at [facility] and they are willing to accept pt. CM to follow. Date Signed: 02/16/2017 05:16 PM Electronically Signed By:PMAELA Medellin [facility] [place] Progress Note CM Note CM Note Notes: Reviewed chart, [facility]/ [facility] re: d/c poc, pt's progress. Dghtr Kaleigh requesting pt go to [facility] () vs [facility] on d/c, d/t high private pay costs at [facility]. Call placed to Nathalia at to confirm acceptance. Per Nathalia, pt has been accepted. [facility] Medicaid is in place; ULTC-100 still needs to be signed by RN and faxed for medical clearance/authorization. Dghtr requesting a Financial POA form from hospital to transfer assignment of bank accts from pt to her. Letter of pt's medical decline provided by Dr. Cummings for bank; letter given to dghtr. Discussed Financial POA form w/ [employer] and other CM's, all unaware of a hospital approved document. Pt is also not in a place mentally to sign legal forms at this time. Update provided to dghtr. CM will cont to follow. Date Signed: 02/17/2017 05:08 PM Electronically Signed By:Jenni Thomas RN [facility] CM Progress Note CM Note CM Note Notes: Reviewed chart re: pt's progress. Per MD notes, pt not responding to chemo, prognosis remains poor. Dghtr open to hospice; went to [facility] today. Met w/ dghtr to answer several questions regarding LTC and next steps in process. ULTC-100 completed online, faxed manually to [facility]; awaiting response. ULTC-100 placed in chart. Spoke w/ Nathalia at ; Nathalia to call [facility] about pt's hospice needs and d/c plan. Pt to likely d/c Mon 02/19, if response received from [facility]. CM will cont to follow. Date Signed: 02/18/2017 04:52 PM Electronically Signed By:Jenni Thomas RN [facility] CM Progress Note CM Note CM Note Notes: 02/19/2017 Case Management Note Called Du at [facility] ([phone]) to check on ULTC 100 status. Per Du application not received until 02/18/2017 at 1708. Nelli Ludwig [phone] to assess pt for [facility] by Sunday02/21/2017. Left vm with Nelli Ludwig requesting approximate time and date of assessment. Nelli Ludwig will have until Sunday02/23/2017 to compile report for ULTC 100 assessment. [facility] willing to accept pt pending outcome of ULTC assessment. Case Management to follow. Date Signed: 02/19/2017 03:15 PM Electronically Signed By:Adela Moya RN [facility] CM Progress Note CM Note CM Note Notes: 02/21/2017 Case Management Note Met w/daughter Sayda and pt. Arranged for [facility] to come to pt room. Phone call from Nelli Ludwig [facility] case packer and sealer ([phone]) application approved and faxed to [facility]. Phone Call from Nathalia Mendoza, stated [facility] able to take pt today. Case Management d/c poc: To [facility] when medically stable. Case Management to notify [facility] to arrange transport at d/c. Date Signed: 02/21/2017 01:44 PM Electronically Signed By:Adela Moya RN [facility] Progress Note CM Note CM Note Notes: CM spoke w/ MIGUEL Zapata and Dr. Figueroa regarding d/c POC. Kaleigh, pts daughter requested to have [facility] come in this AM. Kaleigh was contemplating having pt home with hospice. Holly from [facility] in, this AM to meet w/ daughter and pt. Kaleigh decided to have pt d/c to [facility] and to have hospice following. CM spoke w/ Nathalia at [facility] to coordinate d/c. Pt will be transported via wheelchair. CM provided RN w/ phone number to give report to [facility]. CM faxed over d/c orders to both facilities. CM available for changes. Date Signed: 02/22/2017 02:32 PM Electronically Signed By:PAMELA Medellin Intervention Information Intervention Type:*Incorrect Registration Date of Service:02/08/2017 08:49 AM Patient Type:Inpatient Staff Member:MIGUEL Mora, Audelia Hours: Discipline: Severity: Comment: Intervention Type:*IM-Signed Date of Service:02/19/2017 11:17 AM Patient Type:Inpatient Staff Member:Codie Amin Hours: Discipline: Severity: Comment: Intervention Type:*IM-Signed Date of Service:02/22/2017 03:00 PM Patient Type:Inpatient Staff Member:Codie Amin Hours: Discipline: Severity: Comment:
[2017-02-22] MEDS ORDERED: GABAPENTIN 300 MG CAP PO SCH (21:00)
== END 2017-02-22 15:55 | DRG 808 ==
LOC: OBSVTOIN 19:23 → F2W 21:15 → F1N 02-12 16:27 → F2W 02-15 16:49
PROVIDERS: ADMIT Family Medicine; ATTEND Internal Medicine
PROC: 30233N1 Transfusion of Nonautologous Red Blood Cells into Peripheral Vein, Percutaneous Approach (ICD-10-PCS; principal; 2017-02-07)
DX: D70.9 Neutropenia, unspecified (principal); R50.81 Fever presenting with conditions classified elsewhere; B37.0 Candidal stomatitis; B00.2 Herpesviral gingivostomatitis and pharyngotonsillitis; G50.0 Trigeminal neuralgia; G92 Toxic encephalopathy; E87.0 Hyperosmolality and hypernatremia; T40.2X5A Adverse effect of other opioids, initial encounter; J69.0 Pneumonitis due to inhalation of food and vomit; J96.01 Acute respiratory failure with hypoxia; E46 Unspecified protein-calorie malnutrition; D61.810 Antineoplastic chemotherapy induced pancytopenia; C93.10 Chronic myelomonocytic leukemia not having achieved remission; I42.9 Cardiomyopathy, unspecified; I50.22 Chronic systolic (congestive) heart failure; N17.9 Acute kidney failure, unspecified; N18.9 Chronic kidney disease, unspecified; E87.6 Hypokalemia; M10.9 Gout, unspecified; Z79.01 Long term (current) use of anticoagulants; I10 Essential (primary) hypertension; S80.212D Abrasion, left knee, subsequent encounter; W01.0XXD Fall on same level from slipping, tripping and stumbling without subsequent striking against object, subsequent encounter; E66.09 Other obesity due to excess calories; Z68.30 Body mass index [BMI] 30.0-30.9, adult; E66.2 Morbid (severe) obesity with alveolar hypoventilation
CPT/HCPCS: 87449-90; 87529-90; 92526-GN; 92610-GN; 96365; 97162-GP; 97166-GO; 97530-GP; 97535-GO; J0133; J0692; J0696; J1170; J1450; J1642; J1940; J1956; J2185; J2248; J2405; J3010; J3370; P9016; P9040; Q5101-ZA; Q9967; Q9988